=== PATIENT | male | born 1975 | race Caucasian/White ===

== ENCOUNTER 2024-06-09 18:41 | Emergency (ER) | payer MEDICAID, SELFPAY ==
[2024-06-09 18:47] VITALS: BP 167/100; PULSE 78; TEMP 36.7; O2SAT 98; BMI 31.6
--- NOTE | 2024-06-09 19:08 | XR_ITS ---
The [address] [address] Patient Name: STACIA KNIGHT MRN: [id number] date: 1975 Sex: M Assigned Patient Location: ED.MAIN Current Patient Location: Accession/Order Number: [id number] Exam Date: 06/09/2024 19:01 Report Date: 06/09/2024 20:24 At the request of: ISAAK WARD Procedure: XR foot LT min 3V EXAMINATION: XR foot LT min 3V, , 06/09/2024 7:01 PM EDT INDICATION: injury/pain HISTORY: Ordering Provider Reason for Exam: injury/pain Technologist Note: Additional: COMPARISON: None. TECHNIQUE: Left foot x-ray: 3 view(s). FINDINGS: Acute minimally displaced fracture is seen at the base of the fifth metatarsal. Joint alignment is anatomic. Joint spaces are preserved. Soft tissues are within normal limits. XR/XR foot LT min 3V IMPRESSION: Acute minimally displaced fracture is seen at the base of the fifth metatarsal. Electronically authenticated by: SCARLETT NOGUEIRA Date: 06/09/2024 20:24
--- NOTE | 2024-06-09 19:14 | ED.LOWEXI1 ---
HPI HPI - Extremity Injury (Lower) General Chief Complaint: Extremity Injury, Lower Stated Complaint: BWC - Lower Extremity Injury Time Seen by Provider: 06/09/24 19:12 Source: patient Mode of arrival: Wheelchair Limitations: no limitations History of Present Illness HPI Narrative: Patient is a 48-year-old male who presents to the emergency department for the evaluation of pain in the left foot after jumping out of his vehicle on a twisted left foot. He complains of pain over the left fifth metatarsal. No other associated injuries. No medications taken prior to arrival. He reports significant pain with walking. Related Data Home Medications ?Medication ?Instructions ?Recorded ?Confirmed Unobtainable 06/09/24 06/09/24 Previous Rx's ?Medication ?Instructions ?Recorded hydrocodone 5 mg-acetaminophen 325 1 tab PO Q6H PRN pain 3 days #12 06/09/24 mg tablet tabs Allergies Allergy/AdvReac Type Severity Reaction Status Date / Time Penicillins AdvReac Mild Rash Verified 06/09/24 18:47 Opioid HPI Opioid Management Most Recent Pain and Opioid Data: No Data to Display Review of Systems ROS Constitutional Denies: fever or chills Ears, nose, mouth, and throat Denies: throat pain Cardiovascular Denies: chest pain Respiratory Denies: shortness of breath Gastrointestinal Denies: nausea or vomiting Musculoskeletal Denies: back pain Integumentary/Breast Denies: rash Neurological Denies: numbness in extremities or weakness in extremities Hematologic/Lymphatic Denies: easy bruising or easy bleeding PFSH PFSH Social History Little interest or pleasure in doing things: not at all Feeling down, depressed, or hopeless: not at all Exam Narrative Exam Narrative: Gen.: Awake, alert, in no distress Head: Normocephalic, atraumatic ENT: Moist mucous membranes Respiratory: No respiratory distress Extremities: Moves extremities equally, tenderness and mild swelling over the left fifth metatarsal with 2+ left DP pulse. Normal flexion and extension of the toes of the left foot. No bony tenderness over the ankle or proximal tibia Psych: Normal mood and affect Neuro: No focal neuro deficit Skin: Warm, dry, intact Constitutional Vital Signs, click to edit/add: Last Vital Signs Temp 98.0 F 06/09/24 18:47 Pulse 78 06/09/24 18:47 Resp 18 06/09/24 18:47 BP 167/100 H 06/09/24 18:47 Pulse Ox 98 06/09/24 18:47 O2 Del Method Room Air 06/09/24 18:47 Course Vital Signs Vital signs: Vital Signs Temperature 98.0 F 06/09/24 18:47 Pulse Rate 78 06/09/24 18:47 Respiratory Rate 18 06/09/24 18:47 Blood Pressure 167/100 H 06/09/24 18:47 Pulse Oximetry 98 06/09/24 18:47 Oxygen Delivery Method Room Air 06/09/24 18:47 Temperature 98.0 F 06/09/24 18:47 Pulse Rate 78 06/09/24 18:47 Respiratory Rate 18 06/09/24 18:47 Blood Pressure 167/100 H 06/09/24 18:47 Pulse Oximetry 98 06/09/24 18:47 Oxygen Delivery Method Room Air 06/09/24 18:47 MDM - Extremity Injury (Lower) MDM Narrative Medical decision making narrative: X-rays show fracture of the fifth metatarsal. Patient placed in a [place]ado dressing and postop shoe and remains neurovascularly intact. He was given Kathleen for pain in the ER and given crutches for home. Rest, ice, elevate. Patient was asked directly if he would like to file Worker's Comp. claim as this happened at work, he states at this time he does not wish to file a Worker's Comp. claim. He was made aware that he can change his mind later and fill out this paperwork if he chooses to do so. Kathleen given for home and he is referred to podiatry for further evaluation and treatment. SUPERVISED APC VISIT, PHYSICIAN ATTESTATION: Based on the medical record the care appears appropriate. ? Medical Records Attestation: I reviewed the patient's medical records. Discharge Plan Discharge Chief Complaint: Extremity Injury, Lower Clinical Impression: Fracture of base of fifth metatarsal bone of left foot Patient Disposition: Home, Self-Care Time of Disposition Decision: 19:14 Condition: Good Prescriptions / Home Meds: New hydrocodone-acetaminophen 5-325 mg tablet 1 tab PO Q6H PRN (Reason: pain) 3 Days Qty: 12 0RF Rx Instructions: M79.672 No Action Unobtainable Print Language: Tamazight Instructions: Foot Fracture in Adults (ED) Referrals: Kiet Landa DPM [Physician] - 1 week
[2024-06-09] MEDS: HYDROCODONE/ACET 5-325 MG TABLET 1 TAB PO (19:54)
--- NOTE | 2024-06-09 19:58 | PC.NURSE ---
this patient did a return demonstration of his crutches, this patient gait was steady and this patient shows no signs of distress
== END 2024-06-09 20:01 | disposition home or self-care (01) ==
PROVIDERS: Emergency Provider Emergency Medicine
DX: S92.352A Displaced fracture of fifth metatarsal bone, left foot, initial encounter for closed fracture (principal); X50.9XXA Other and unspecified overexertion or strenuous movements or postures, initial encounter
CPT/HCPCS: 73630; 99284

== ENCOUNTER 2024-11-04 17:12 | Emergency (ER) | payer MEDICAID, SELFPAY ==
[2024-11-04 17:18] VITALS: BP 162/97; PULSE 85; TEMP 36.8; O2SAT 98; BMI 34.1
--- OUTSIDE RECORDS SUMMARY | 2024-11-04 17:33 | XMS_ITS | CCD ---
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 Name Role Phone Unavailable Primary Care Provider Unavailyann e Amanda Wan DO Primary Care Provider Grant CHIEF OPERATOR - SECURITY ASSURANCE ANALYSTJeanine Primary Care Provider Grant CHIEF OPERATOR - SECURITY ASSURANCE ANALYSTJeanine Primary Care Provider Grant DELGADO - SECURITY ASSURANCE ANALYSTJeanine Primary Care Provider VIVIENNE MUNSON Attending Unavailable VIVIENNE MUNSON Referring Unavailable JEANINE ROSA Primary Care Unavailable JEANINE ROSA Primary Care Unavailable VIVIENNE MUNSON Consulting Unavailable VIVIENNE MUNSON Admitting Unavailable VIVIENNE MUNSON Attending Unavailable DEBORA BERNAL Consulting Unavailable FABIO LAYNE Consulting Unavailable JEANINE ROSA Primary Care Unavailable STEPHENIE BOOKER Attending Unavailable VIVIENNE MUNSON Consulting Unavailable VIVIENNE MUNSON Attending Unavailable VIVIENNE MUNSON Referring Unavailable JEANINE ROSA Primary Care Unavailable JEANINE ROSA Referring Unavailable JEANINE ROSA Primary Care Unavailable JEANINE ROSA Referring Unavailable JEANINE ROSA Primary Care Unavailable JEANINE ROSA Referring Unavailable JEANINE ROSA Primary Care Unavailable PROVIDER, UNKNOWN Attending Unavailable PROVIDER, UNKNOWN Admitting Unavailable Allergies Allergy Classification Reported Allergen(s) Allergy Type Date of Onset Reaction(s) Facility Penicillins (antibiotic) (1 source) Penicillins Drug Allergy 01-23-2021 [facility] (6 sources) Penicillins Propensity to adverse reactions to drug 01-23-2021 [facility] Medications Current Medications Medication Drug Class(es) Dates Sig (Normalized) Sig (Original) Acetaminophen (2 sources) Start: 12-09-2021 acetaminophen (TYLENOL) tablet 650 mg Start: 01-23-2021 take 650 mg by mouth every four hours as needed for pain, then take 4000 mg by mouth every twenty-four hours as needed for pain 650 mg, Oral, EVERY 4 HOURS PRN, Pain Mild (1-3), Fever, Fever >100.5 F (38 C), Starting on 01/23/21 at 2327 Maximum dose of acetaminophen is 4000 mg from all sources in 24 hours. Recovery(Cath) acetaminophen 325 mg / oxyCODONE hydrochloride 5 mg oral tablet (1 source) Opioid Agonist Start: 02-01-2023 End: 02-01-2023 oxyCODONE-acetaminophen (PERCOCET) 5-325 MG per tablet Indications: Scrotal hematoma Take 1 tablet by mouth every 6 hours as needed for Pain for up to 3 days. Intended supply: 3 days. Take lowest dose possible to manage pain Max Daily Amount: 4 tablets 12 tablet 0 02/01/2023 02/01/2023 Discontinued [id number] 200 actuat albuterol 0.09 mg/actuat metered dose inhaler (4 sources) beta2-Adrenergic Agonist Start: 01-17-2022 take 2 puff(s) by inhalation every four hours as needed for wheezing VENTOLIN HFA 108 (90 Base) MCG/ACT inhaler Indications: Mild intermittent asthma, unspecified whether complicated , Chronic obstructive pulmonary disease, unspecified COPD type (HCC) Inhale 2 puffs into the lungs every 4 hours as needed for Wheezing or Shortness of Breath 18 g 3 01/17/2022 Active aspirin 81 mg delayed release oral tablet (10 sources) Platelet Aggregation Inhibitor, Nonsteroidal Anti-inflammator y Drug Start: 01-29-2023 take 1 tablet by mouth once daily ASPIRIN LOW DOSE 81 MG EC tablet take 1 tablet by mouth once daily 30 tablet 0 01/29/2023 Active Start: 03-07-2022 take 1 tablet by nancy th in the morning aspirin 81 MG chewable tablet Take 1 tablet by mouth in the morning. 30 tablet 3 03/07/2022 Active Start: 12-09-2021 aspirin chewab le tablet 243 mg Start: 01-24-2021 take 1 tablet by nancy th once daily aspirin 81 MG chewable tablet Take 1 tablet by mouth daily 30 tablet 3 01/26/2021 Active atorvastatin 80 mg oral tablet (9 sources) HMG-CoA Reductase Inhibitor Start: 01-16-2023 take 1 tablet by mouth once daily atorvastatin (LIPITOR) 80 MG tablet take 1 tablet by mouth nightly 30 tablet 3 01/16/2023 Active Start: 03-07-2022 take 1 tablet by nancy th once daily atorvastatin (LIPITOR) 80 MG tablet Take 1 tablet by mouth nightly 30 tablet 3 03/07/2022 Active Start: 01-23-2021 take 1 tablet by nancy th once daily atorvastatin (LIPITOR) 80 MG tablet Take 1 tablet by mouth nightly 30 tablet 3 01/25/2021 Active 60 actuat budesonide 0.16 mg/actuat / formoterol fumarate 0.0045 mg/actuat metered dose inhaler (4 sources) Corticosteroid, beta2-Adrenergic Agonist Start: 10-08-2022 take 2 puff(s) by inhalation twice daily budesonide-formoterol (SYMBICORT) 160-4.5 MCG/ACT AERO Indications: Chronic obstructive pulmonary disease, unspecified COPD type (HCC) Inhale 2 puffs into the lungs 2 times daily 10.2 g 3 10/08/2022 Active Start: 04-03-2022 take 2 puff(s) by in halation in the morning SYMBICORT 80-4.5 MCG/ACT AERO Indications: Mild intermittent asthma, unspecified whether complicated , Chronic obstructive pulmonary disease, unspecified COPD type (HCC) Inhale 2 puffs into the lungs in the morning and 2 puffs before bedtime. 10.2 g 3 04/03/2022 Active busPIRone hydrochloride 5 mg oral tablet (2 sources) Start: 01-17-2023 take 1 tablet by mouth three times daily busPIRone (BUSPAR) 5 MG tablet Indications: Anxiety , Medication management take 1 tablet by mouth three times a day 90 tablet 0 01/17/2023 Active Continuous Blood Gluc Assemblyman Or Woman (FREESTYLE ZULEMA 2 READER) POLO (5 sources) Start: 12-25-2021 Continuous Blood Gluc Assemblyman Or Woman (FREESTYLE ZULEMA 2 READER) POLO Indications: Type 2 diabetes mellitus with hyperglycemia, without long-term current use of insulin (HCC) 1 Device by Does not apply route daily 1 each 1 12/25/2021 Active Continuous Blood Gluc Sensor (FREESTYLE ZULEMA 2 SENSOR) MISC (5 sources) Start: 12-25-2021 Continuous Blood Gluc Sensor (FREESTYLE ZULEMA 2 SENSOR) [facility] [place]ications: Type 2 diabetes mellitus with hyperglycemia, without long-term current use of insulin (HCC) 1 Device by Does not apply route every 14 days 2 each 3 12/25/2021 Active dulaglutide (2 sources) GLP-1 Receptor Agonist DULAGLUTIDE SC Inject into the skin once a week 0 Active empagliflozin 10 mg oral tablet (5 sources) Sodium-Glucose Cotransporter 2 Inhibitor Start: 08-24-2022 take 1 tablet by mouth once daily in the morning empagliflozin (JARDIANCE) 10 MG tablet Indications: Type 2 diabetes mellitus with hyperglycemia, without long-term current use of insulin (HCC) TAKE 1 TABLET BY MOUTH EVERY DAY IN THE MORNING 30 tablet 3 08/24/2022 Active Start: 03-07-2022 take 1 tablet by nancy th in the morning empagliflozin (JARDIANCE) 10 MG tablet Indications: Type 2 diabetes mellitus with hyperglycemia, without long-term current use of insulin (HCC) Take 1 tablet by mouth in the morning. 30 tablet 3 03/07/2022 Active Start: 12-25-2021 take 1 tablet by nancy th once daily empagliflozin (JARDIANCE) 10 MG tablet Indications: Type 2 diabetes mellitus with hyperglycemia, without long-term current use of insulin (HCC) Take 1 tablet by mouth daily 30 tablet 3 12/25/2021 Active glucagon (rdna) 1 mg injection (2 sources) Antihypoglycemic Agent Start: 12-09-2021 glucago n (rDNA) injection 1 mg Start: 01-25-2021 glucagon (rDNA ) injection 1 mg 150 ml glucose 50 mg/ml injection (6 sources) Start: 12-09-2021 glucose (GLUTO SE) 40 % oral gel 15 g Start: 12-09-2021 dextrose 50 % IV solution Start: 12-09-2021 dextrose 5 % s olution Start: 01-25-2021 dextrose 50 % IV solution Start: 01-25-2021 dextrose 5 % s olution Start: 01-25-2021 glucose (GLUTO SE) 40 % oral gel 15 g icosapent ethyl 1000 mg oral capsule (1 source) Start: 01-26-2021 Icosapent Ethy l (VASCEPA) 1 g CAPS capsule Take 2 capsules by mouth 2 times daily 60 capsule 3 01/26/2021 Active 3 ml insulin glargine 100 unt/ml pen injector (3 sources) Insulin Analog Start: 12-27-2022 insulin glargi ne (LANTUS SOLOSTAR) 100 UNIT/ML injection pen Indications: Type 2 diabetes mellitus with hyperglycemia, without long-term current use of insulin (HCC) Inject 6 Units into the skin nightly 5 Adjustable Dose Pre-filled Pen Syringe 1 12/27/2022 Active Start: 01-25-2021 insulin glargi ne (LANTUS) injection vial 5 Units insulin lispro 100 unt/ml injectable solution (4 sources) Insulin Analog Start: 12-09-2021 insulin lispro (HUMALOG) injection vial 0-3 Units Start: 01-24-2021 0-18 Units, Subcutaneous, 3 TIMES DAILY WITH MEALS, First dose on Sat01/24/21 at 0800 High Dose Corrective Algorithm Glucose: Dose: 70-139 No Insulin 140-199 & nbsp; 3 Units 200-249 6 Units 250-299 9 Units 300-349 12 Units 350-400 15 Units Over 400 18 Units Start: 01-23-2021 0-9 Units, Subcutaneous, NIG HTLY, First dose on Sat01/23/21 at 2330 If continuous tube feedings/TPN/NPO, give correction dose based on result, no reduction in dose. If eating or bolus tube feeding: High Dose Corrective Algorithm Glucose: Dose: 70-139 No Insulin 140-199 &nb sp; 2 Units 200-249 3 Units 250-299 5 Units 300-349 6 Units 350-400 7 Units Over 400 9 Units lisinopril 5 mg oral tablet (9 sources) Angiotensin Converting Enzyme Inhibitor Start: 08-24-2022 take 1 tablet by mouth once daily in the morning lisinopril (PRINIVIL;ZESTRIL) 5 MG tablet TAKE 1 TABLET BY MOUTH EVERY DAY IN THE MORNING 30 tablet 3 08/24/2022 Active Start: 03-07-2022 take 1 tablet by nancy th in the morning lisinopril (PRINIVIL;ZESTRIL) 5 MG tablet Take 1 tablet by mouth in the morning. 30 tablet 3 03/07/2022 Active Start: 01-26-2021 take 1 tablet by nancy th once daily lisinopril (PRINIVIL;ZESTRIL) 5 MG tablet Take 1 tablet by mouth daily 30 tablet 3 01/26/2021 Active Start: 01-24-2021 lisinopril (IA INIVIL;ZESTRIL) tablet 5 mg metFORMIN hydrochloride 1000 mg oral tablet (8 sources) Biguanide Start: 01-31-2023 take 1 tablet by mouth once daily at mealtime metFORMIN (GLUCOPHAGE) 1000 MG tablet take 1 tablet by mouth every morning and every evening with food 120 tablet 0 01/31/2023 Active Start: 03-07-2022 take 1 tablet by nancy th in the morning metFORMIN (GLUCOPHAGE) 1000 MG tablet Take 1 tablet by mouth in the morning and 1 tablet in the evening. Take with meals. 60 tablet 5 03/07/2022 Active Start: 12-09-2021 take 1000 mg by mout h twice daily at mealtime 1,000 mg, Oral, 2 TIMES DAILY WITH MEALS, First dose on 12/09/21 at 1700, Until Discontinued take 1 tablet by nancy th twice daily at mealtime metFORMIN (GLUCOPHAGE) 1000 MG tablet Take 1,000 mg by mouth 2 times daily (with meals) 0 Active metoprolol tartrate 100 mg oral tablet (12 sources) beta-Adrenergic Laury Start: 01-27-2023 take 1 tablet by mouth at bedtime metoprolol (LOPRESSOR) 100 MG tablet Take 1 tablet by mouth in the morning and at bedtime 60 tablet 3 01/27/2023 Active Start: 03-07-2022 take 1 tablet by nancy th twice daily Metoprolol Tartrate 75 MG TABS Take 75 mg by mouth 2 times daily 60 tablet 3 03/07/2022 Active Start: 12-09-2021 take 75 mg by mouth twice leodan y 75 mg, Oral, 2 TIMES DAILY, First dose on 12/09/21 at 1315, Until Discontinued Start: 01-25-2021 metoprolol tar trate (LOPRESSOR) tablet 75 mg Start: 01-25-2021 take 1 tablet by nancy th twice daily metoprolol tartrate 75 MG TABS Take 75 mg by mouth 2 times daily 60 tablet 3 01/25/2021 Active Start: 01-25-2021 metoprolol tar trate (LOPRESSOR) tablet 25 mg Start: 01-24-2021 End: 01-25-2021 metoprolol tartrate (LOPRESS OR) tablet 50 mg Start: 01-23-2021 End: 01-24-2021 metoprolol tartrate (LOPRESS OR) tablet 25 mg 24 hr nicotine 0.875 mg/hr transdermal system (1 source) Cholinergic Nicotinic Agonist Start: 01-24-2021 nicotine (NICODERM C Q) 21 MG/24HR 1 patch nitroglycerin 0.4 mg sublingual tablet (5 sources) Nitrate Vasodilator Start: 03-07-2022 nitroGLYCE RIN (NITROSTAT) 0.[address] 1 tablet under the tongue as needed for Chest pain Place 0.4 mg under the tongue as needed 25 tablet 0 03/07/2022 Active Start: 12-20-2021 nitroGLYCERIN (NITROSTAT) 0.[address] 0.4 mg under the tongue as needed 0 12/20/2021 Active ondansetron (ZOFRAN-ODT) disintegrating tablet 4 mg (1 source) Start: 12-09-2021 ondansetron (ZOFRAN-ODT) disintegrating tablet 4 mg oxyCODONE hydrochloride 5 mg oral tablet (1 source) Opioid Agonist Start: 02-01-2023 End: 02-04-2023 take 1 tablet by mouth every six hours as needed for pain oxyCODONE (ROXICODONE) 5 MG immediate release tablet Indications: Scrotal hematoma Take 1 tablet by mouth every 6 hours as needed for Pain for up to 3 days. Intended supply: 3 days. Take lowest dose possible to manage pain Max Daily Amount: 20 mg 10 tablet 0 02/01/2023 02/04/2023 Active pantoprazole 40 mg delayed release oral tablet (1 source) Proton Pump Inhibitor Start: 01-25-2021 pantoprazole (PROTONIX) tablet 40 mg tamsulosin hydrochloride 0.4 mg oral capsule (2 sources) alpha-Adrenergi c Laury Start: 01-16-2023 take 1 capsule by mouth once daily tamsulosin (FLOMAX) 0.4 MG capsule Indications: Urine stream spraying take 1 capsule by mouth once daily 30 capsule 3 01/16/2023 Active ticagrelor 90 mg oral tablet (7 sources) Start: 03-07-2022 take 1 tablet by mouth in the morning ticagrelor (BRILINTA) 90 MG TABS tablet Take 1 tablet by mouth in the morning and 1 tablet before bedtime. 60 tablet 11 03/07/2022 Active Start: 01-24-2021 take 1 tablet by nancy th twice daily ticagrelor (BRILINTA) 90 MG TABS tablet Take 1 tablet by mouth 2 times daily 60 tablet 11 01/25/2021 Active triamcinolone acetonide 0.001 mg/mg topical ointment (2 sources) Corticosteroid Start: 12-29-2022 triamcinolone (KENALOG) 0.1 % ointment Indications: Dermatitis apply topically to affected area twice a day 454 g 3 12/29/2022 Active TRULICITY 3 MG/0.5ML SOPN (3 sources) Start: 03-07-2022 TRULICITY 3 MG /0.5ML SOPN Inject 3 mg into the skin every 7 days Inject 3 mg into the skin every 7 days 3 mL 1 03/07/2022 Active Start: 12-18-2021 TRULICITY 3 MG /0.5ML SOPN Inject 3 mg into the skin every 7 days 0 12/18/2021 Active Completed/Discontinued Medications Medication Drug Class(es) Dates Sig (Normalized) Sig (Original) dapagliflozin 10 mg oral tablet (3 sources) Sodium-Glucose Cotransporter 2 Inhibitor Start: 01-25-2021 End: 12-09-2021 take 1 tablet by mouth once daily in the morning dapagliflozin (FARXIGA) 10 MG tablet Take 1 tablet by mouth every morning 30 tablet 0 01/25/2021 12/09/2021 Discontinued (Therapy completed) 0.4 ml enoxaparin sodium 100 mg/ml prefilled syringe (2 sources) Low Molecular Weight Heparin Start: 12-09-2021 inject 40 mg by subcutaneous injection once daily 40 mg, SubCUTAneous, DAILY, First dose on 12/09/21 at 1315, Until Discontinued Indication of Use: Prophylaxis-DVT/PE Start: 01-24-2021 enoxaparin (LO VENOX) injection 40 mg 2 ml fentaNYL 0.05 mg/ml injection (1 source) Opioid Agonist Start: 01-23-2021 End: 01-23-2021 fentaNYL (SUBLIMAZE) injection 50 mcg Start: 01-23-2021 End: 01-23-2021 fentaNYL (SUBLIMAZE) injecti on 50 mcg glipiZIDE 5 mg oral tablet (1 source) Sulfonylurea Start: 01-25-2021 End: 01-25-2021 take 1 tablet by mouth twice daily before mealtime glipiZIDE (GLUCOTROL) 5 MG tablet Take 1 tablet by mouth 2 times daily (before meals) 60 tablet 1 01/25/2021 01/25/2021 Discontinued (Stop Taking at Discharge) 1 ml heparin sodium, porcine 1000 unt/ml injection (2 sources) Unfractionated Heparin, Anti-coagulant Start: 01-23-2021 End: 01-23-2021 heparin (porcine) 1000 UNIT/ML injection Start: 01-23-2021 End: 01-23-2021 heparin (porcine) injection 4,000 Units naproxen 500 mg oral tablet (1 source) Nonsteroidal Anti-inflammatory Drug End: 01-25-2021 take 1 tablet by mouth twice daily at mealtime naproxen (NAPROSYN) 500 MG tablet Take 500 mg by mouth 2 times daily (with meals) 0 01/25/2021 Discontinued (Stop Taking at Discharge) omega-3 acid ethyl esters (custodial) 1000 mg oral capsule (1 source) Start: 12-09-2021 2 g, Oral, 2 TIMES DAILY, First dose on 12/09/21 at 1315, Until Discontinued Substituted for icosapent ethyl (VASCEPA) polyethylene glycol 3350 [id number] mg powder for oral solution (1 source) Osmotic Laxative Start: 12-09-2021 17 g, Oral, DAILY PRN, Starting on 12/09/21 at 1248, Until Discontinued, Constipation First line therapy for constipation 5 ml sodium chloride 9 mg/ml injection (6 sources) Start: 12-09-2021 take 1 dose intravenously twice daily 5-40 mL, IntraVENous, EVERY 12 HOURS SCHEDULED (2 times per day), First dose on 12/09/21 at 2100, Until Discontinued For Line Patency: Peripheral IV = 5 mL; Midline or Central Line = 10 mL/lumen.&nb sp; If following IV push medication, administer flush at same rate as the IV push. Flush volume is determined by type of infusion therapy being given. &nbs p;For non-viscous solutions use: Periph eral IV = 5 mL Midline or Central Line = 10 mL/lumen &n bsp;For viscous solutions (i.e. blood components, parenteral nutrition, contrast media, or after obtaining blood sample) use: Periph eral IV = 10 mL Midline or Central Line = 20 mL/lumen Start: 12-09-2021 IntraVENous, a t 5-250 mL/hr, PRN, if patient receiving piggyback infusions and maintenance fluids are not ordered OR KVO fluids to protect IV site / prevent frequent line interruptions/ long duration, Starting on 12/09/21 at 1248 For piggyback infusion, administer at same rate as piggyback for a total of 25 mL. Enter 25 mL into dose field and piggyback rate into rate field of order. If piggyback is infusing at a rate less than 100 mL/hr, enter 25 mL into dose field and 100 mL/hr into rate field of order. For KVO fluids, enter rate of 20 mL/hr or less into rate field of order. Start: 12-09-2021 take 5-40 mL intrave nously once as needed 5-40 mL, IntraVENous, PRN, Starting on Sat12/09/21 at 1248, Until Discontinued, Line Care, After every IV line use For Line Patency: Peripheral IV = 5 mL; Midline or Central Line = 10 mL/lumen. If following IV push medication, administer flush at same rate as the IV push. Flush volume is determined by type of infusion therapy being given. For non-viscous solutions use: Peripheral IV = 5 mL Midline or Central Line = 10 mL/lumen For viscous solutions (i.e. blood components, parenteral nutrition, contrast media, or after obtaining blood sample) use: Peripheral IV = 10 mL Midline or Central Line = 20 mL/lumen Start: 01-23-2021 take 1 dose intraven ously twice daily 5-40 mL, Intravenous, EVERY 12 HOURS SCHEDULED (2 times per day), First dose on Sat01/23/21 at 2330 For Line Patency: Peripheral IV = 5 mL; Midline or Central Line = 10 mL/lumen. If following IV push medication, administer flush at same rate as the IV push. Flush volume is determined by type of infusion therapy being given. For non-viscous solutions use: Peripheral IV = 5 mL Midline or Central Line = 10 mL/lumen For viscous solutions (i.e. blood components, parenteral nutrition, contrast media, or after obtaining blood sample) use: Peripheral IV = 10 mL Midline or Central Line = 20 mL/lumen Recovery(Cath) Start: 01-23-2021 5-40 mL, Intra venous, PRN, Line Care, Starting on Sat01/23/21 at 2327 For Line Patency: Peripheral IV = 5 mL; Midline or Central Line = 10 mL/lumen. If following IV push medication, administer flush at same rate as the IV push. Flush volume is determined by type of infusion therapy being given. For non-viscous solutions use: Peripheral IV = 5 mL Midline or Central Line = 10 mL/lumen For viscous solutions (i.e. blood components, parenteral nutrition, contrast media, or after obtaining blood sample) use: Peripheral IV = 10 mL Midline or Central Line = 20 mL/lumen Recovery(Cath) Start: 01-23-2021 take 25 mL intraveno usly every hour as needed 25 mL, Intravenous, at 100 mL/hr, PRN, If patient receiving piggyback infusions without ordered maintenance IV fluids or with frequent/long duration piggyback infusions, Starting on Sat01/23/21 at 2327 Administer at the same rate as the piggyback being infused. Recovery(Cath) Problems Active Problems Problem Classification Problem Date Documented Date Episodic/Chronic Acute myocardial infarction (8 sources) Myocardial infarction; Translations: [ST elevation (STEMI) myocardial infarction of unspecified site] Onset: 01-23-2021 Chronic Acute posthemorrhagic anemia (2 sources) Acute posthemorrhagic anemia; Translations: [Acute posthemorrhagic anemia] Onset: 01-25-2023 01-25-2023 Episodic Coronary atherosclerosis and other heart disease (5 sources) Coronary atherosclerosis; Translations: [Atherosclerotic heart disease of [place] coronary artery without angina pectoris] Onset: 03-13-2021 12-25-2021 Chronic Crushing injury or internal injury (6 sources) Laceration of left kidney; Translations: [Laceration of left kidney, unspecified degree, initial encounter] Onset: 01-23-2023 Episodic Diabetes mellitus with complications (8 sources) Type 2 diabetes mellitus; Translations: [Type 2 diabetes mellitus with hyperglycemia] Onset: 01-24-2021 Chronic Disorders of lipid metabolism (5 sources) Pure hypercholesterolemia; Translations: [Pure hypercholesterolemia, unspecified] Onset: 04-04-2017 12-25-2021 Chronic Esophageal disorders (8 sources) Gastroesophageal reflux disease without esophagitis; Translations: [Gastro-esophageal reflux disease without esophagitis] Onset: 01-24-2021 Chronic Essential hypertension (5 sources) Essential hypertension; Translations: [Essential (primary) hypertension] Onset: 06-19-2020 12-25-2021 Chronic Other male genital disorders (1 source) Swelling of scrotum ; Translations: [Other specified disorders of the male genital organs] Episodic Other male genital disorders (1 source) Other specified disorders of the male genital organs; Translations: [Other specified disorders of the male genital organs] Onset: 02-01-2023 Episodic Other non-traumatic joint disorders (1 source) Pain of right wrist; Translations: [Pain in right wrist] Episodic Superficial injury; contusion (2 sources) Hematoma of scrotum; Translations: [Contusion of scrotum and testes, initial encounter] Onset: 02-01-2023 Episodic Past or Other Problems Problem Classification Problem Date Documented Da te Episodic/Chronic E Codes: Fall (4 sources) Fall; Translations: [Unspecified fall, subsequent encounter] Onset: 04-03-2022 Episodic Fluid and electrolyte disorders (8 sources) Hyponatremia; Translations: [Hypo-osmolality and hyponatremia] Onset: 01-24-2021 Resolved: 01-25-2023 Episodic Nonspecific chest pain (9 sources) Chest pain; Translations: [Other chest pain] Onset: 12-09-2021 Episodic Other non-traumatic joint disorders (3 sources) Pain in right wrist; Translations: [Pain in right wrist] Onset: 04-03-2022 Episodic Results Test Name Value Interpretation Reference Range Facility CBC with Auto Differentialon 02-01-2023 Absolute Bands # 0.20 [facility] Bands 2 % 0 - 10 % [facility] Basophils (Bld) [#/Vol] 0.29 10*3/uL High [facility] Basophils/100 WBC (Bld) 3 % High 0 - 2 % [facility] Eosinophils (Bld) [#/Vol] 0.49 10*3/uL High [facility] Eosinophils/100 WBC (Bld) 5 % High 0 - 4 % [facility] Erythrocyte distribution width (RBC) [Ratio] 13.8 % 11.5 - 14.9 % [facility] Hematocrit (Bld) [Volume fraction] 31.6 % Low 41 - 53 % [facility] Hemoglobin (Bld) [Mass/Vol] 10.9 g/dL Low 13.5 - 17.5 g/dL [facility] Interpretation and review of laboratory results Abnormal [facility] Lymphocytes/100 WBC (Bld) 9 % Low 24 - 44 % [facility] Lymphocytes/100 WBC (Bld) 0.88 % Low [facility] MCH (RBC) [Entitic mass] 32.1 pg 26 - 34 pg [facility] MCHC (RBC) [Mass/Vol] 34.6 g/dL 31 - 37 g/dL B ON [facility] MCV (RBC) [Entitic vol] 92.7 fL 80 - 100 fL [facility] Metamyelocytes 1 % High 0 [facility] Metamyelocytes Absolute 0.10 High 0 k/uL [facility] Monocytes/100 WBC (Bld) 12 % High 1 - 7 % [facility] Monocytes/100 WBC (Bld) 1.18 % [facility] Morphology Nathan (Bld) [Interp] 1+ POLYCHROMASIA [facility] Myelocytes 2 % High 0 [facility] Myelocytes Absolute 0.20 High 0 k/uL [facility] Neutrophils/100 WBC (Bld) 66 % 36 - 66 % [facility] Platelet mean volume (Bld) [Entitic vol] 6.8 fL 6.0 - 12.0 fL [facility] Platelets (Bld) [#/Vol] 419 10*3/uL [facility] RBC (Bld) [#/Vol] 3.40 10*6/uL Low 4.5 - 5.9 m/uL [facility] Segmented neutrophils/100 WBC (Bld) 6.46 % [facility] WBC other (Bld) [#/Vol] 9.8 [facility] CBC with Diffon 02-01-2023 Abs. Bands 0.20 k/uL Normal 0.0-1.0 [facility] Comment on above: Performed By: #### M G, LIP, CDP, PT, CP #### [facility] [address] [place] [address] [employer] Eng[employer]ver: Mick Carrera DO Abs. Basophil 0.29 k/uL High 0.0-0.2 [facility] Comment on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 [employer]: Mick Carrera DO MCHC (RBC) [Mass/Vol] 33.4 g/dL Normal 31-37 [facility] Comment on above: Performed By: #### Paddy YANEZ, HH #### [facility] [place] [address] [employer]ver: Mick Carrera DO MCV (RBC) [Entitic vol] 93.1 fL Normal 80-100 [facility] Comment on above: Performed By: #### Paddy YANEZ, TAYLOR #### [facility] [place] [address] [employer]ver: Mick Carrera DO Platelet mean volume (Bld) [Entitic vol] 7.4 fL Normal 6.0-12.0 [facility] Comment on above: Performed By: #### Paddy YANEZ, TAYLOR #### [facility] [place] [address] [employer]ver: Mick Carrera DO Platelets (Bld) [#/Vol] 226 10*3/uL Normal 150-450 [facility] Comment on above: Performed By: #### Paddy YANEZ, TAYLOR #### [facility] [place] [address] [employer]ver: Mick Carrera DO RBC (Bld) [#/Vol] 2.72 10*6/uL Low 4.5-5.9 [facility] Comment on above: Performed By: #### Paddy YANEZ, TAYLOR #### [facility] [place] [address] [employer]ver: Mick Carrera DO WBC (Bld) [#/Vol] 9.3 10*3/uL Normal 3.5-11.0 [facility] Comment on above: Performed By: #### Paddy YANEZ, HH #### [facility] [address] [place] [address] [employer]ver: Mick Carrera DO Basic Metab w/rfx MGon 01-26 Anion gap [Moles/Vol] 10 mmol/L Normal 9-17 [facility] Comment on above: Performed By: #### Paddy YANEZ, HH #### [facility] [place] [address] [employer]ver: Mick Carrera DO Calcium [Mass/Vol] 8.6 mg/dL Normal 8.6-10.4 [facility] Comment on above: Performed By: #### Paddy YANEZ, HH #### [facility] [place] [address] [employer]ver: Mick Carrera DO Chloride [Moles/Vol] 96 mmol/L Low 98-107 [facility] Comment on above: Performed By: #### Paddy YANEZ, HH #### [facility] [address] [facility] [place] [address] [employer]ver: Mick Carrera DO CO2 [Moles/Vol] 29 mmol/L Normal 20-31 [facility] Comment on above: Performed By: #### Paddy YANEZ, HH #### [facility] [place] [address] [employer]ver: Mick Carrera DO Creatinine [Mass/Vol] 0.93 mg/dL Normal 0.70-1.20 [facility] Comment on above: Performed By: #### Paddy YANEZ, HH #### [facility] [place] [address] [employer]ver: Mick Carrera DO GFR/1.73 sq M.predicted among non-blacks MDRD (S/P/Bld) [Vol rate/Area] mL/min/{1.73_m2} Normal >60 [facility] Comment on above: Result Comment: These results are not intended for use in patients <18 years of age. eGFR results are calculated without a race factor using the 2020 CKD-EPI equation. Careful clinical correlation is recommended, particularly when comparing to results calculated using previous equations. The CKD-EPI equation is less accurate in patients with extremes of muscle mass, extra-renal metabolism of creatine, excessive creatine ingestion, or following therapy that affects renal tubular secretion. Performed By: #### B RENATA, HH #### [facility] [address] [place] [address] [employer]ver: Mick Carrera DO Glucose [Mass/Vol] 188 mg/dL High 70-99 [facility] Comment on above: Performed By: #### Paddy YANEZ, HH #### [facility] [address] [facility] [place] [address] [employer]ver: Mick Carrera DO Potassium [Moles/Vol] 3.9 mmol/L Normal 3.7-5.3 [facility] Comment on above: Performed By: #### Paddy YANEZ, HH #### [facility] [address] [facility] [place] [address] [employer]ver: Mick Carrera DO Sodium [Moles/Vol] 135 mmol/L Normal 135-144 [facility] Comment on above: Performed By: #### Paddy YANEZ, HH #### [facility] [address] [facility] [place] [address] [employer]ver: Mick Carrera DO Urea nitrogen [Mass/Vol] 10 mg/dL Normal 6-20 [facility] Comment on above: Performed By: #### Paddy YANEZ, HH #### [facility] [address] [place] [address] [employer]ver: Mick Carrera DO CBC with Diffon 01-26-2023 Abs. Basophil 0.00 k/uL Normal 0.0-0.2 [facility] Comment on above: Performed By: #### TAYLOR Thomason MP #### [facility] [place] [address] [employer]ver: Mick Carrera DO Abs.Neutrophil (Seg) 5.70 k/uL Normal 1.3-9.1 [facility] Comment on above: Performed By: #### Paddy YANEZ, TAYLOR #### [facility] [place] [address] [employer]ver: Mick Carrera DO Basophils/100 WBC (Bld) 1 % Normal 0-2 [facility] Comment on above: Performed By: #### Paddy YANEZ, TAYLOR #### [facility] [place] [address] [employer]ver: Mick Carrera DO Eosinophils (Bld) [#/Vol] 0.10 10*3/uL Normal 0.0-0.4 [facility] Comment on above: Performed By: #### Paddy YANEZ, TAYLOR #### [facility] [address] [place] [address] [employer]ver: Mick Carrera DO Eosinophils/100 WBC (Bld) 1 % Normal 0-4 [facility] Comment on above: Performed By: #### Paddy YANEZ, TAYLOR #### [facility] [place] [address] [employer] Eng[employer]ver: Mick Carrera DO Erythrocyte distribution width (RBC) [Ratio] 14.1 % Normal 11.5-14.9 [facility] Comment on above: Performed By: #### Paddy YANEZ, TAYLOR #### [facility] [address] [place] [address] [employer]ver: Mick Carrera DO Hematocrit (Bld) [Volume fraction] 25.8 % Low 41-53 [facility] Comment on above: Performed By: #### Paddy YANEZ, HH #### [facility] [address] [facility] [place] [address] [employer]ver: Mick Carrera DO Hemoglobin (Bld) [Mass/Vol] 9.0 g/dL Low 13.5-17.5 [facility] Comment on above: Performed By: #### Paddy YANEZ, HH #### [facility] [place] [address] [employer] Eng[employer]ver: Mick Carrera DO Lymphocytes (Bld) [#/Vol] 1.70 10*3/uL Normal 1.0-4.8 [facility] Comment on above: Performed By: #### Paddy YANEZ, TAYLOR #### [facility] [place] [address] [employer] Eng[employer]ver: Mick Carrera DO Lymphocytes/100 WBC (Bld) 20 % Low 24-44 [facility] Comment on above: Performed By: #### Paddy YANEZ, TAYLOR #### [facility] [address] [place] [address] [employer]ver: Mick Carrera DO MCH (RBC) [Entitic mass] 32.2 pg Normal 26-34 [facility] Comment on above: Performed By: #### Paddy YANEZ, HH #### [facility] [place] [address] [employer] Eng[employer]ver: Mick Carrera DO MCHC (RBC) [Mass/Vol] 34.9 g/dL Normal 31-37 [facility] Comment on above: Performed By: #### Paddy YANEZ, TAYLOR #### [facility] [address] [place], [place] [address]. [place] [address] [employer]ver: Mick Carrera DO MCV (RBC) [Entitic vol] 92.3 fL Normal 80-100 [facility] Comment on above: Performed By: #### Paddy YANEZ, HH #### [facility] [place] [address] [employer] Eng[employer]ver: Mick Carrera DO Monocytes (Bld) [#/Vol] 0.80 10*3/uL Normal 0.1-1.3 [facility] Comment on above: Performed By: #### B RENATA, HH #### [facility] [address] [place] [address] [employer]ver: Mick Carrera DO Monocytes/100 WBC (Bld) 10 % High 1-7 [facility] Comment on above: Performed By: #### B RENATA, HH #### [facility] [address] [place] [address] [employer]ver: Mick Carrera DO Neutrophil (Seg) 68 % High 36-66 [facility] Comment on above: Performed By: #### Paddy YANEZ, HH #### [facility] [address] [place] [address]. [place] [address] [employer]ver: Mick Carrera DO Platelet mean volume (Bld) [Entitic vol] 7.3 fL Normal 6.0-12.0 [facility] Comment on above: Performed By: #### B RENATA, HH #### [facility] [address] [place] [address] [employer]ver: Mick Carrera DO Platelets (Bld) [#/Vol] 189 10*3/uL Normal 150-450 [facility] Comment on above: Performed By: #### B RENATA, HH #### [facility] [address] [place] [address] [employer]: Mick Carrera DO RBC (Bld) [#/Vol] 2.79 10*6/uL Low 4.5-5.9 [facility] Comment on above: Performed By: #### B RENATA, HH #### [facility] [address] [place] [address] [employer]ver: Mick Carrera DO WBC (Bld) [#/Vol] 8.4 10*3/uL Normal 3.5-11.0 [facility] Comment on above: Performed By: #### Paddy YANEZ, HH #### [facility] [address] [place] [address] [employer]ver: Mick Carrera DO Hgb/Hcton 01-26-2023 Hematocrit (Bld) [Volume fraction] 26.3 % Low 41-53 [facility] Comment on above: Performed By: #### Paddy YANEZ, HH #### [facility] [address] [facility] [place] [address] [employer] Eng[employer]ver: Mick Carrera DO Hemoglobin (Bld) [Mass/Vol] 9.4 g/dL Low 13.5-17.5 [facility] Comment on above: Performed By: #### B RENATA, HH #### [facility] [address] [facility] [place] [address] [employer] Eng[employer]ver: Mick Carrera DO Hematocrit (Bld) [Volume fraction] 21.7 % Low 41-53 [facility] Comment on above: Performed By: #### T PLT #### [facility] [address] [place] [address] [employer]ver: Mick Carrera DO Hemoglobin (Bld) [Mass/Vol] 7.2 g/dL Low 13.5-17.5 [facility] Comment on above: Performed By: #### T PLT #### [facility] [address] [place] [address] [employer]ver: Mick Carrera DO Type + Screenon 01-26-2023 Type + Screen Sample Expiration 01/26/2023,2359 Arm Band Number [id number] ABO/Rh(D) A POSITIVE Antibody Screen NEGATIVE Blood Bank Comment PT'S ABORH CONFIRMED A POS:404 Unit Number [id number] Blood Component Type Leukocyte Reduced Red Cell Unit Division 00 Status of Unit TRANSFUSED Transfusion Status OK TO TRANSFUSE Crossmatch Result COMPATIBLE Unit Number [id number] Blood Component Type Leukocyte Reduced Red Cell Unit Division 00 Status of Unit TRANSFUSED Transfusion Status OK TO TRANSFUSE Crossmatch Result COMPATIBLE Normal [facility] Comment on above: Performed By: #### A LCB #### [facility] [address] [place] [address] [employer]ver: Mick Carrera DO Basic Metab w/rfx MGon 01-25 Potassium [Moles/Vol] 4.2 mmol/L Normal 3.7-5.3 [facility] Comment on above: Performed By: #### A LCB #### [facility] [place] [address] [employer]ver: Mick Carrera DO Anion gap [Moles/Vol] 10 mmol/L Normal 9-17 [facility] Comment on above: Performed By: #### A LCB #### [facility] [place] [address] [employer]ver: Mick Carrera DO Calcium [Mass/Vol] 8.6 mg/dL Normal 8.6-10.4 [facility] Comment on above: Performed By: #### A LCB #### [facility] [place] [address] [employer] Eng[employer]ver: Mick Carrera DO Chloride [Moles/Vol] 100 mmol/L Normal 98-107 [facility] Comment on above: Performed By: #### A LCB #### [facility] [address] [facility] [place] [place] [address] [employer] Eng[employer]ver: Mick Carrera DO CO2 [Moles/Vol] 27 mmol/L Normal 20-31 [facility] Comment on above: Performed By: #### A LCB #### [facility] [address] [facility] [place] [address] [employer]ver: Mick Carrera DO Creatinine [Mass/Vol] 1.36 mg/dL High 0.70-1.20 [facility] Comment on above: Performed By: #### A LCB #### [facility] [address] [facility] [place] [address] [employer]ver: Mick Carrera DO GFR/1.73 sq M.predicted among non-blacks MDRD (S/P/Bld) [Vol rate/Area] mL/min/{1.73_m2} Normal >60 [facility] Comment on above: Result Comment: These results are not intended for use in patients <18 years of age. eGFR results are calculated without a race factor using the 2020 CKD-EPI equation. Careful clinical correlation is recommended, particularly when comparing to results calculated using previous equations. The CKD-EPI equation is less accurate in patients with extremes of muscle mass, extra-renal metabolism of creatine, excessive creatine ingestion, or following therapy that affects renal tubular secretion. Performed By: #### A LCB #### [facility] [address] [facility] [place] [address] [employer]ver: Mick Carrera DO Glucose [Mass/Vol] 197 mg/dL High 70-99 [facility] Comment on above: Performed By: #### A LCB #### [facility] [address] [facility] [place] [address] [employer]ver: Mick Carrera DO Sodium [Moles/Vol] 137 mmol/L Normal 135-144 [facility] Comment on above: Performed By: #### A LCB #### [facility] [place] [address] [employer]ver: Mick Carrera DO Urea nitrogen [Mass/Vol] 16 mg/dL Normal 6-20 [facility] Comment on above: Performed By: #### A LCB #### [facility] [address] [place] [address] [employer]ver: Mick Carrera DO CBC with Diffon 01-25-2023 Abs. Basophil 0.10 k/uL Normal 0.0-0.2 [facility] Comment on above: Performed By: #### A LCB #### [facility] [address] [place] [address] [employer]: Mick Carrera DO Abs.Neutrophil (Seg) 8.50 k/uL Normal 1.3-9.1 [facility] Comment on above: Performed By: #### A LCB #### [facility] [address] [place] [address] [employer]: Mick Carrera DO Basophils/100 WBC (Bld) 0 % Normal 0-2 [facility] Comment on above: Performed By: #### A LCB #### [facility] [address] [place] [address] [employer]: Mick Carrera DO Eosinophils (Bld) [#/Vol] 0.00 10*3/uL Normal 0.0-0.4 [facility] Comment on above: Performed By: #### A LCB #### [facility] [address] [place] [address] [employer]ver: Mick Carrera DO Eosinophils/100 WBC (Bld) 0 % Normal 0-4 [facility] Comment on above: Performed By: #### A LCB #### [facility] [address] [place] [address] [employer]ver: Mick Carrera DO Erythrocyte distribution width (RBC) [Ratio] 13.0 % Normal 11.5-14.9 [facility] Comment on above: Performed By: #### A LCB #### [facility] [address] [place] [address] [employer]ver: Mick Carrera DO Hematocrit (Bld) [Volume fraction] 23.1 % Low 41-53 [facility] Comment on above: Performed By: #### A LCB #### [facility] [address] [place] [address] [employer]: Mick Carrera DO Hemoglobin (Bld) [Mass/Vol] 7.8 g/dL Low 13.5-17.5 [facility] Comment on above: Performed By: #### A LCB #### [facility] [address] [place] [address] [employer]: Mick Carrera DO Lymphocytes (Bld) [#/Vol] 1.90 10*3/uL Normal 1.0-4.8 [facility] Comment on above: Performed By: #### A LCB #### [facility] [address] [place] [address] [employer]: Mick Carrera DO Lymphocytes/100 WBC (Bld) 17 % Low 24-44 [facility] Comment on above: Performed By: #### A LCB #### [facility] [address] [place] [address] [employer] Eng[employer]ver: Mick Carrera DO MCH (RBC) [Entitic mass] 32.0 pg Normal 26-34 [facility] Comment on above: Performed By: #### A LCB #### [facility] [address] [place] [address] [employer] Eng[employer]ver: Mick Carrera DO MCHC (RBC) [Mass/Vol] 33.9 g/dL Normal 31-37 [facility] Comment on above: Performed By: #### A LCB #### [facility] [address] [place] [address] [employer] Eng[employer]ver: Mick Carrera DO MCV (RBC) [Entitic vol] 94.3 fL Normal 80-100 [facility] Comment on above: Performed By: #### A LCB #### [facility] [place] [address] [employer] Eng[employer]ver: Mick Carrera DO Monocytes (Bld) [#/Vol] 1.00 10*3/uL Normal 0.1-1.3 [facility] Comment on above: Performed By: #### A LCB #### [facility] [facility] [place] [address] [employer] Engraver: Mick Carrera DO Monocytes/100 WBC (Bld) 9 % High 1-7 [facility] Comment on above: Performed By: #### A LCB #### [facility] [place] [address] [employer] Eng[employer]ver: Mick Carrera DO Neutrophil (Seg) 74 % High 36-66 [facility] Comment on above: Performed By: #### A LCB #### [facility] [place] [address] [employer] Eng[employer]ver: Mick Carrera DO Platelet mean volume (Bld) [Entitic vol] 7.6 fL Normal 6.0-12.0 [facility] Comment on above: Performed By: #### A LCB #### [facility] [place] [address] [employer] Eng[employer]ver: Mick Carrera DO Platelets (Bld) [#/Vol] 227 10*3/uL Normal 150-450 [facility] Comment on above: Performed By: #### A LCB #### [facility] [address] [place] [address] [employer] Eng[employer]ver: Mick Carrera DO RBC (Bld) [#/Vol] 2.46 10*6/uL Low 4.5-5.9 [facility] Comment on above: Performed By: #### A LCB #### [facility] [address] [place] [address]. [place] [address] [employer]ver: Mick Carrera DO WBC (Bld) [#/Vol] 11.5 10*3/uL High 3.5-11.0 [facility] Comment on above: Performed By: #### A LCB #### [facility] [facility] [place] [place] [address] [employer] Eng[employer]ver: Mick Carrera DO Hgb/Hcton 01-25-2023 Hematocrit (Bld) [Volume fraction] 23.1 % Low 41-53 [facility] Comment on above: Performed By: #### H H #### [facility] [address] [place] [address]. [place] [address] [employer] Eng[employer]ver: Mick Carrera DO Hemoglobin (Bld) [Mass/Vol] 7.9 g/dL Low 13.5-17.5 [facility] Comment on above: Performed By: #### H H #### [facility] [place] [address] [employer] Eng[employer]ver: Mick Carrera DO Hematocrit (Bld) [Volume fraction] 24.7 % Low 41-53 [facility] Comment on above: Performed By: #### T PLT #### [facility] [address] [place] [address] [employer] Eng[employer]ver: Mick Carrera DO Hemoglobin (Bld) [Mass/Vol] 8.3 g/dL Low 13.5-17.5 [facility] Comment on above: Performed By: #### T PLT #### [facility] [address] [place] [address] [employer]ver: Mick Carrera DO Hematocrit (Bld) [Volume fraction] 25.7 % Low 41-53 [facility] Comment on above: Performed By: #### H H #### [facility] [address] [place] [address] [employer]ver: Mick Carrera DO Hemoglobin (Bld) [Mass/Vol] 8.7 g/dL Low 13.5-17.5 [facility] Comment on above: Performed By: #### H H #### [facility] [address] [place] [address] [employer] Eng[employer]ver: Mick Carrera DO Platelets,Transfuseon 2022 Platelets,Transfuse Unit Number [id number] Blood Component Type PthRePlt PAS Unit Division 00 Status of Unit TRANSFUSED Transfusion Status OK TO TRANSFUSE Normal [facility] Comment on above: Performed By: #### T PLT #### [facility] [address] [place] [address] [employer] Eng[employer]ver: Mick Carrera DO Basic Metab w/rfx MGon 01-24 Anion gap [Moles/Vol] 13 mmol/L Normal 9-17 [facility] Comment on above: Performed By: #### H H #### [facility] [address] [place] [address] [employer] Eng[employer]ver: Mick Carrera DO Sodium [Moles/Vol] 137 mmol/L Normal 135-144 [facility] Comment on above: Performed By: #### H H #### [facility] [address] [place] [address] [employer] Eng[employer]ver: Mick Carrera DO Calcium [Mass/Vol] 9.0 mg/dL Normal 8.6-10.4 [facility] Comment on above: Performed By: #### H H #### [facility] [place] [address] [employer] Eng[employer]ver: Mick Carrera DO Chloride [Moles/Vol] 102 mmol/L Normal 98-107 [facility] Comment on above: Performed By: #### H H #### [facility] [place] [address] [employer] Eng[employer]ver: Mick Carrera DO CO2 [Moles/Vol] 22 mmol/L Normal 20-31 [facility] Comment on above: Performed By: #### H H #### [facility] [address] [facility] [place] [address] [employer] Eng[employer]ver: Mick Carrera DO Creatinine [Mass/Vol] 1.24 mg/dL High 0.70-1.20 [facility] Comment on above: Performed By: #### H H #### [facility] [place] [address] [employer] Eng[employer]ver: Mick Carrera DO GFR/1.73 sq M.predicted among non-blacks MDRD (S/P/Bld) [Vol rate/Area] mL/min/{1.73_m2} Normal >60 [facility] Comment on above: Result Comment: These results are not intended for use in patients <18 years of age. eGFR results are calculated without a race factor using the 2020 CKD-EPI equation. Careful clinical correlation is recommended, particularly when comparing to results calculated using previous equations. The CKD-EPI equation is less accurate in patients with extremes of muscle mass, extra-renal metabolism of creatine, excessive creatine ingestion, or following therapy that affects renal tubular secretion. Performed By: #### H H #### [facility] [address] [place] [address] [employer] Engraver: Mick Carrera DO Glucose [Mass/Vol] 242 mg/dL High 70-99 [facility] Comment on above: Performed By: #### H H #### [facility] [place] [address] [employer] Eng[employer]ver: Mick Carrera DO Potassium [Moles/Vol] 4.6 mmol/L Normal 3.7-5.3 [facility] Comment on above: Performed By: #### H H #### [facility] [address] [place] [address] [employer] Eng[employer]ver: Mick Carrera DO Urea nitrogen [Mass/Vol] 14 mg/dL Normal 6-20 [facility] Comment on above: Performed By: #### H H #### [facility] [facility] [place] [place] [address] [employer] Engraver: Mick Carrera DO Basic Metabolic Profon 01-24 Anion gap [Moles/Vol] 16 mmol/L Normal 9-17 [facility] Comment on above: Performed By: #### B TAYLOR YANEZ #### [facility] [facility] [place] [place] [address] [employer] Eng[employer]ver: Mick Carrera DO Calcium [Mass/Vol] 8.8 mg/dL Normal 8.6-10.4 [facility] Comment on above: Performed By: #### B TAYLOR YANEZ #### [facility] [place] [address] [employer] Engraver: Mick Carrera DO Chloride [Moles/Vol] 102 mmol/L Normal 98-107 [facility] Comment on above: Performed By: #### B RENATA, TAYLOR #### [facility] [address] [facility] [place] [address] [employer] Eng[employer]ver: Mick Carrera DO CO2 [Moles/Vol] 21 mmol/L Normal 20-31 [facility] Comment on above: Performed By: #### B RENATA, HH #### [facility] [address] [facility] [place] [address] [employer] Eng[employer]ver: Mick Carrera DO Creatinine [Mass/Vol] 1.66 mg/dL High 0.70-1.20 [facility] Comment on above: Performed By: #### B RENATA, HH #### [facility] [place] [address] [employer] Eng[employer]ver: Mick Carrera DO GFR/1.73 sq M.predicted among non-blacks MDRD (S/P/Bld) [Vol rate/Area] 50 mL/min/{1.73_m2} Low >60 [facility] Comment on above: Result Comment: These results are not intended for use in patients <18 years of age. eGFR results are calculated without a race factor using the 2020 CKD-EPI equation. Careful clinical correlation is recommended, particularly when comparing to results calculated using previous equations. The CKD-EPI equation is less accurate in patients with extremes of muscle mass, extra-renal metabolism of creatine, excessive creatine ingestion, or following therapy that affects renal tubular secretion. Performed By: #### B RENATA, HH #### [facility] [address] [facility] [place] [address] [employer] Eng[employer]ver: Mick Carrera DO Glucose [Mass/Vol] 282 mg/dL High 70-99 [facility] Comment on above: Performed By: #### B RENATA, TAYLOR #### [facility] [address] [facility] [place] [address] [employer] Eng[employer]ver: Mikc Carrera DO Potassium [Moles/Vol] 4.5 mmol/L Normal 3.7-5.3 [facility] Comment on above: Performed By: #### B TAYLOR YANEZ #### [facility] [address] [place] [address]. [place] [address] [employer] Eng[employer]ver: Mick Carrera DO Sodium [Moles/Vol] 139 mmol/L Normal 135-144 [facility] Comment on above: Performed By: #### B RENATA, TAYLOR #### [facility] [address] [place] [address]. [place] [address] [employer] Eng[employer]ver: Mick Carrera DO Urea nitrogen [Mass/Vol] 19 mg/dL Normal 6-20 [facility] Comment on above: Performed By: #### B TAYLOR YANEZ #### [facility] [address] [place] [address]. [place] [address] [employer] Eng[employer]ver: Mick Carrera DO CBC with Diffon 01-24-2023 Abs. Basophil 0.00 k/uL Normal 0.0-0.2 [facility] Comment on above: Performed By: #### H H #### [facility] [address] [place] [address] [employer] Eng[employer]ver: Mick Carrera DO Abs.Neutrophil (Seg) 12.00 k/uL High 1.3-9.1 [facility] Comment on above: Performed By: #### H H #### [facility] [address] [place] [address]. [place] [address] [employer] Eng[employer]ver: Mick Carrera DO Basophils/100 WBC (Bld) 0 % Normal 0-2 [facility] Comment on above: Performed By: #### H H #### [facility] [address] [place] [address] [employer] Eng[employer]ver: Mick Carrera DO Eosinophils (Bld) [#/Vol] 0.00 10*3/uL Normal 0.0-0.4 [facility] Comment on above: Performed By: #### H H #### [facility] [address] [place] [address] [employer] Eng[employer]ver: Mick Carrera DO Eosinophils/100 WBC (Bld) 0 % Normal 0-4 [facility] Comment on above: Performed By: #### H H #### [facility] [address] [place] [address] [employer] Eng[employer]ver: Mick Carrera DO Erythrocyte distribution width (RBC) [Ratio] 13.0 % Normal 11.5-14.9 [facility] Comment on above: Performed By: #### H H #### [facility] [address] [place] [address] [employer] Eng[employer]ver: Mick Carrera DO Hematocrit (Bld) [Volume fraction] 37.9 % Low 41-53 [facility] Comment on above: Performed By: #### H H #### [facility] [address] [place] [address] [employer] Eng[employer]ver: Mick Carrera DO Hemoglobin (Bld) [Mass/Vol] 13.2 g/dL Low 13.5-17.5 [facility] Comment on above: Performed By: #### H H #### [facility] [facility] [place] [address] [employer] Engraver: Mick Carrera DO Lymphocytes (Bld) [#/Vol] 0.80 10*3/uL Low 1.0-4.8 [facility] Comment on above: Performed By: #### H H #### [facility] [address] [place] [address] [employer] Eng[employer]ver: Mick Carrera DO Lymphocytes/100 WBC (Bld) 6 % Low 24-44 [facility] Comment on above: Performed By: #### H H #### [facility] [place] [address] [employer] Eng[employer]ver: Mick Carrera DO MCH (RBC) [Entitic mass] 32.2 pg Normal 26-34 [facility] Comment on above: Performed By: #### H H #### [facility] [place] [address] [employer] Engraver: Mick Carrera DO MCHC (RBC) [Mass/Vol] 34.7 g/dL Normal 31-37 [facility] Comment on above: Performed By: #### H H #### [facility] [address] [place] [address] [employer] Eng[employer]ver: Mick Carrera DO MCV (RBC) [Entitic vol] 92.6 fL Normal 80-100 [facility] Comment on above: Performed By: #### H H #### [facility] [address] [place] [address] [employer] Eng[employer]ver: Mick Carrera DO Monocytes (Bld) [#/Vol] 1.20 10*3/uL Normal 0.1-1.3 [facility] Comment on above: Performed By: #### H H #### [facility] [address]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 EKG 12 LeadOrdered By: Daniel Kennedy on 01-25-2021 Atrial Rate 93 BPM [employer] Phone: P [place] 32 degrees [employer] Phone: P-R Interval 144 ms [employer] Phone: Q-T Interval 334 ms [employer] Phone: QRS Duration 92 ms [employer] Phone: QTc Calculation (Bazett) 415 ms [employer] Phone: R [place] 19 degrees [employer] Phone: T [place] 60 degrees [employer] Phone: Ventricular Rate 93 BPM [employer] Work Phone: Normal sinus rhythm ST elevation consider inferior injury or acute infarct ACUTE [place] / STEMI Consider right ventricular involvement in acute inferior infarct Abnormal ECG When compared with ECG of 05-MAR-2002 16:12, ST elevation now present in Inferior leads [employer] Phone: Dao, pn Incoming Ekg Results From [employer] - 01/25/2021 8:55 AM EDT Normal sinus rhythm ST elevation consider inferior injury or acute infarct ACUTE [place] / STEMI Consider right ventricular involvement in acute inferior infarct Abnormal ECG When compared with ECG of 05-MAR-2002 16:12, ST elevation now present in Inferior leads [employer] Work Phone: [employer] Phone: EKG 12 LeadOrdered By: Aria Cooley on 01-25-2021 Atrial Rate 86 BPM [employer] Work Phone: P [place] 39 degrees [employer] Phone: P-R Interval 146 ms [employer] Phone: Q-T Interval 352 ms [employer] Phone: QRS Duration 92 ms [employer] Phone: QTc Calculation (Bazett) 421 ms [employer] Phone: R [place] -35 degrees [employer] Work Phone: T [place] 8 degrees [employer] Phone: Ventricular Rate 86 BPM [employer] Work Phone: Normal sinus rhythm Left axis deviation Inferior infarct , age undetermined Abnormal ECG When compared with ECG of 23-JAN-2021 21:59, QRS axis Shifted left Inferior infarct is now Present ST no longer elevated in Inferior leads Nonspecific T wave abnormality, worse in Lateral leads [employer] Phone: Dao, pn Incoming Ekg Results From [employer] - 01/25/2021 8:51 AM EDT Normal sinus rhythm Left axis deviation Inferior infarct , age undetermined Abnormal ECG When compared with ECG of 23-JAN-2021 21:59, QRS axis Shifted left Inferior infarct is now Present ST no longer elevated in Inferior leads Nonspecific T wave abnormality, worse in Lateral leads [employer] Phone: [employer] Phone: LDL Cholesterol, DirectOrder ed By: Franci Ruvalcaba on 01-25-2021 Cholesterol in LDL [Mass/Vol] 123 mg/dL High <100 [employer] Phone: Interpretation and review of laboratory results Abnormal [employer] Phone: [facility] Phone: Lipid, FastingOrdered By: Kojo Ruvalcaba on 01-25-2021 Cholesterol [Mass/Vol] 221 mg/dL High <200 [employer] Phone: Comment on above: Cholesterol Guidelines: <200 Desirable 200-240 Borderline >240 Undesirable Cholesterol in HDL [Mass/Vol] 26 mg/dL Low >40 [employer] Phone: Comment on above: HDL Guidelines: <40 Undesirable 40-59 Borderline >59 Desirable Cholesterol in VLDL [Mass/Vol] NOT REPORTED 1 - 30 mg/dL [employer] Phone: Cholesterol.total/Chol esterol in HDL [Mass ratio] 8.5 {ratio} High <5 [employer] Phone: LDL Cholesterol 0 - 130 mg/dL [employer] Phone: Comment on above: Calculation not chase d for Triglyceride value greater than 400 mg/dL. Direct LDL reflexed LDL Guidelines: <100 Desirable 100-129 Near to/above Desirable 130-159 Borderline >159 Undesirable Direct (measured) LDL and calculated LDL are not interchangeable tests. Triglyceride, Fasting 638 mg/dL High <150 [facility] [employer] Phone: Comment on above: Triglyceride Guidelines: <150 Desirable 150-199 Borderline 200-499 High >499 Very high Based on AHA Guidelines for fasting triglyceride, May 2012. No Panel InformationOrdered By: Natalie Cooley on 01-25-2021 Interpretation and review of laboratory results Abnormal [facility] Phone: [facility] Phone: POC Glucose FingerstickOrder ed By: Franci Ruvalcaba on 01-25-2021 Glucose [Mass/Vol] 281 mg/dL High 75 - 110 mg/dL [employer] Phone: Interpretation and review of laboratory results Abnormal [employer] Phone: [employer] Phone: Glucose [Mass/Vol] 286 mg/dL High 75 - 110 mg/dL [employer] Phone: Interpretation and review of laboratory results Abnormal Invisible Phone: Invisible Phone: TroponinOrdered By: Natalie Cooley on 01-25-2021 Interpretation and review of laboratory results Abnormal Invisible Phone: Troponin Interp NOT REPORTED [facility] Work Phone: Troponin T NOT REPORTED <0.03 ng/mL [facility] [employer] Work Phone: Troponin, High Sensitivity 274 ng/L Critically high 0 - 22 ng/L Invisible Phone: Comment on above: High Sensitivity Troponin values cannot be compared with other Troponin methodologies. Patients with high levels of Biotin oral intake (i.e >5mg/day) may have falsely decreased Troponin levels. Samples collected within 8 hours of biotin intake may require additional information for diagnosis. Previous Alert Value Reported Invisible Phone: ECHO Complete 2D W Doppler W ColorOrdered By: Stefan Hidalgo on 01-24-2021 Transthoracic Echocardiography Report (TTE) Patient Name ANTONIA Date of Study 01/24/2021 JOHN Carpio Date of 1975 Gender Male Age 45 year(s) Race Unknown Room Number 1011 Height: 65 inch, 165.1 cm Corporate ID [id number] Weight: 250 pounds, 113.4 kg # Patient Acct [id number] BSA: 2.17 m^2 BMI: 41.6 kg/m^2 # MR # [id number] [employer] Chele Alex Interpreting Physician Steven Burr Fellow Referring Nurse Practitioner Interpreting Referring Physician ELLE AYALA Fellow Type of Study TTE procedure:2D Echocardiogram, M-Mode, Doppler, Color Doppler. Procedure Date Date: 01/24/2021 Start: 08:07 AM Study Location: [facility] Technical Quality: Adequate visualization Comments:STEMI. History / Tech. Comments: Procedure explained to patient. Echo done at patient bedside. DM type 2. Patient Status: Inpatient Height: 65 inches Weight: 250 pounds BSA: 2.17 m^2 BMI: 41.6 kg/m^2 HR: 88 bpm Allergies - Penicillin. CONCLUSIONS Summary Left ventricle is normal in size Global left ventricular systolic function is low normal . Estimated ejection fraction is 50 % . Mild left ventricular hypertrophy. The basal and mid segment of the inferoseptal wall is hypokinetic. The inferior wall is hypokinetic. Left atrium is normal in size. Right atrium is normal in size. Normal right ventricular size and function. No significant valvular abnormalities. Signature Electronically signed by Farida [facility]) on 01/24/2021 03:14 PM FINDINGS Left Atrium Left atrium is normal in size. Left Ventricle Left ventricle is normal in size Global left ventricular systolic function is low normal Estimated ejection fraction is 50 % . Mild left ventricular hypertrophy. The basal and mid segment of the inferoseptal wall is hypokinetic. The inferior wall is hypokinetic. Right Atrium Right atrium is normal in size. Right Ventricle Normal right ventricular size and function. Mitral Valve Normal mitral valve structure and function. No mitral regurgitation. Aortic Valve Aortic valve is sclerotic but opens well. Aortic valve is trileaflet. No aortic insufficiency. Tricuspid Valve Normal tricuspid valve structure and function. No tricuspid regurgitation was seen. Pulmonic Valve The pulmonic valve is normal in structure. No pulmonic insufficiency. Pericardial Effusion No significant pericardial effusion is seen. Miscellaneous Normal aortic root dimension. E/E' average = 8.4. IVC normal diameter & inspiratory collapse indicating normal RA filling pressure . M-mode / 2D Measurements & Calculations: LVIDd:3.5 cm(3.7 - 5.6 cm) Diastolic Volume:84.1 ml LVIDs:2.7 cm(2.2 - 4.0 cm) Systolic Volume:37.7 ml IVSd:1.3 cm(0.6 - 1.1 cm) Aortic Root:3.5 cm(2.0 - 3.7 cm) LVPWd:1.3 cm(0.6 - 1.1 cm) LA Dimension: 3 cm(1.9 - 4.0 cm) Fractional Shortenin.86 % LA volume/Index: 26.6 ml /12m^2 Calculated LVEF (%): 55.17 % LVOT:2.1 cm RVDd:3.5 cm Mitral: Aortic Valve Area (P1/2-Time): 3.28 cm^2 Peak Velocity: 1.25 m/s Peak E-Wave: 0.48 m/s Mean Velocity: 0.96 m/s Peak A-Wave: 0.79 m/s Peak Gradient: 6.25 mmHg E/A Ratio: 0.6 Mean Gradient: 4 mmHg Peak Gradient: 0.91 mmHg Mean Gradient: 1 mmHg Deceleration Time: 229 msec Area (continuity): 2.99 cm^2 P1/2t: 67 msec AV VTI: 20.5 cm Area (continuity): 3.35 cm^2 Mean Velocity: 0.51 m/s Pulmonic: Peak Velocity: 0.89 m/s Peak Gradient: 3.17 mmHg Diastology / Tissue Doppler Septal Wall E' velocity:0.05 m/s Septal Wall E/E':10.2 Lateral Wall E' velocity:0.07 m/s Lateral Wall E/E':6.6 [facility] Work Phone: Dao, pn Incoming Cardio Results From [facility] - 01/24/2021 3:15 PM EDT Transthoracic Echocardiography Report (TTE) Patient Name ANTONIA Date of Study 01/24/2021 JOHN Carpio Date of 1975 Gender Male Age 45 year(s) Race Unknown Room Number 1011 Height: 65 inch, 165.1 cm Corporate ID [id number] Weight: 250 pounds, 113.4 kg # Patient Acct [id number] BSA: 2.17 m^2 BMI: 41.6 kg/m^2 # MR # [id number] [employer] Chele Alex Interpreting Physician Steven Burr Fellow Referring Nurse Practitioner Interpreting Referring Physician ELLE Lau Type of Study TTE procedure:2D Echocardiogram, M-Mode, Doppler, Color Doppler. Procedure Date Date: 01/24/2021 Start: 08:07 AM Study Location: [facility] Technical Quality: Adequate visualization Comments:STEMI. History / Tech. Comments: Procedure explained to patient. Echo done at patient bedside. DM type 2. Patient Status: Inpatient Height: 65 inches Weight: 250 pounds BSA: 2.17 m^2 BMI: 41.6 kg/m^2 HR: 88 bpm Allergies - Penicillin. CONCLUSIONS Summary Left ventricle is normal in size Global left ventricular systolic function is low normal . Estimated ejection fraction is 50 % . Mild left ventricular hypertrophy. The basal and mid segment of the inferoseptal wall is hypokinetic. The inferior wall is hypokinetic. Left atrium is normal in size. Right atrium is normal in size. Normal right ventricular size and function. No significant valvular abnormalities. Signature - - - Electronically signed by Steven Burr([facility] physician) on 01/24/2021 03:14 PM - FINDINGS Left Atrium Left atrium is normal in size. Left Ventricle Left ventricle is normal in size Global left ventricular systolic function is low normal Estimated ejection fraction is 50 % . Mild left ventricular hypertrophy. The basal and mid segment of the inferoseptal wall is hypokinetic. The inferior wall is hypokinetic. Right Atrium Right atrium is normal in size. Right Ventricle Normal right ventricular size and function. Mitral Valve Normal mitral valve structure and function. No mitral regurgitation. Aortic Valve Aortic valve is sclerotic but opens well. Aortic valve is trileaflet. No aortic insufficiency. Tricuspid Valve Normal tricuspid valve structure and function. No tricuspid regurgitation was seen. Pulmonic Valve The pulmonic valve is normal in structure. No pulmonic insufficiency. Pericardial Effusion No significant pericardial effusion is seen. Miscellaneous Normal aortic root dimension. E/E' average = 8.4. IVC normal diameter & inspiratory collapse indicating normal RA filling pressure . M-mode / 2D Measurements & Calculations: LVIDd:3.5 cm(3.7 - 5.6 cm) Diastolic Volume:84.1 ml LVIDs:2.7 cm(2.2 - 4.0 cm) Systolic Volume:37.7 ml IVSd:1.3 cm(0.6 - 1.1 cm) Aortic Root:3.5 cm(2.0 - 3.7 cm) LVPWd:1.3 cm(0.6 - 1.1 cm) LA Dimension: 3 cm(1.9 - 4.0 cm) Fractional Shortenin.86 % LA volume/Index: 26.6 ml /12m^2 Calculated LVEF (%): 55.17 % LVOT:2.1 cm RVDd:3.5 cm Mitral: Aortic Valve Area (P1/2-Time): 3.28 cm^2 Peak Velocity: 1.25 m/s Peak E-Wave: 0.48 m/s Mean Velocity: 0.96 m/s Peak A-Wave: 0.79 m/s Peak Gradient: 6.25 mmHg E/A Ratio: 0.6 Mean Gradient: 4 mmHg Peak Gradient: 0.91 mmHg Mean Gradient: 1 mmHg Deceleration Time: 229 msec Area (continuity): 2.99 cm^2 P1/2t: 67 msec AV VTI: 20.5 cm Area (continuity): 3.35 cm^2 Mean Velocity: 0.51 m/s Pulmonic: Peak Velocity: 0.89 m/s Peak Gradient: 3.17 mmHg Diastology / Tissue Doppler Septal Wall E' velocity:0.05 m/s Septal Wall E/E':10.2 Lateral Wall E' velocity:0.07 m/s Lateral Wall E/E':6.6 Invisible Phone: Invisible Phone: HEMOGLOBIN [id number] By: Monik Gill on 01-24-2021 Glucose [Mass/Vol] 229 mg/dL Invisible Phone: Comment on above: The ADA and AACC rec ommend providing the estimated average glucose result to permit better patient understanding of their HBA1c result. HbA1c (Bld) [Mass fraction] 9.6 % High 4.0 - 6.0 % Invisible Phone: Interpretation and review of laboratory results Abnormal Invisible Phone: Invisible Phone: POC Glucose FingerstickOrder ed By: Franci Ruvalcaba on 01-24-2021 Glucose [Mass/Vol] 263 mg/dL High 75 - 110 mg/dL Invisible Phone: Interpretation and review of laboratory results Abnormal Invisible Phone: Invisible Phone: Glucose [Mass/Vol] 304 mg/dL High 75 - 110 mg/dL Invisible Phone: Interpretation and review of laboratory results Abnormal Invisible Phone: Invisible Phone: Glucose [Mass/Vol] 302 mg/dL High 75 - 110 mg/dL Invisible Phone: Interpretation and review of laboratory results Abnormal Invisible Phone: Invisible Phone: Glucose [Mass/Vol] 274 mg/dL High 75 - 110 mg/dL Invisible Phone: Interpretation and review of laboratory results Abnormal Invisible Phone: [employer] Work Phone: Glucose [Mass/Vol] 413 mg/dL Critically high 75 - 1 10 mg/dL [facility] Phone: Interpretation and review of laboratory results Abnormal [facility] Work Phone: [employer] Work Phone: TSH with ReflexOrdered By: Jorge Cooley on 01-24-2021 TSH Qn 1.51 m[IU]/L [employer] Work Phone: Invisible Phone: TroponinOrdered By: Natalie Cooley on 01-24-2021 Interpretation and review of laboratory results Abnormal Invisible Phone: Troponin Interp NOT REPORTED [facility] Work Phone: Troponin T NOT REPORTED <0.03 ng/mL [facility] Work Phone: Troponin, High Sensitivity 339 ng/L Critically high 0 - 22 ng/L [facility] Phone: Comment on above: High Sensitivity Troponin values cannot be compared with other Troponin methodologies. Patients with high levels of Biotin oral intake (i.e >5mg/day) may have falsely decreased Troponin levels. Samples collected within 8 hours of biotin intake may require additional information for diagnosis. Invisible Phone: APTTOrdered By: Darryl shearer on 01-23-2021 aPTT Coag (Bld) [Time] 22.7 s [facility] [employer] Work Phone: Comment on above: IV Heparin Therapy Range: 48.6-77.8 Activated clotting timeOrder ed By: Nicolette Mendoza on 01-23-2021 Activated Clotting Time 249 High [facility] Work Phone: Interpretation and review of laboratory results Abnormal Invisible Phone: Invisible Phone: Basic Metabolic Panel w/ Ref isaiah to MGOrdered By: Darryl Kennedy on 01-23-2021 Anion gap [Moles/Vol] 15 mmol/L 9 - 17 mmol/L Invisible Phone: Calcium [Mass/Vol] 9.5 mg/dL 8.6 - 10. 4 mg/dL Invisible Phone: Chloride [Moles/Vol] 97 mmol/L Low 98 - 10 7 mmol/L Invisible Phone: CO2 [Moles/Vol] 22 mmol/L 20 - 31 mmol/L Invisible Phone: Creatinine [Mass/Vol] 0.85 mg/dL 0.70 - 1.20 mg/dL Invisible Phone: GFR >60 >60 mL/min [employer] Phone: GFR Non- >60 >60 mL/min Invisible Phone: GFR/1.73 sq M.predicted MDRD (S/P/Bld) [Vol rate/Area] Invisible Phone: Comment on above: Average GFR for 40-4 9 years old: 99 mL/min/1.73sq m Chronic Kidney Disease: <60 mL/min/1.73sq m Kidney failure: <15 mL/min/1.73sq m eGFR calculated using average adult body mass. Additional eGFR calculator available at: http://www.[employer]/multiple_crcl_2012.htm GFR/1.73 sq M.predicted MDRD (S/P/Bld) [Vol rate/Area] NOT REPORTED Invisible Phone: Glucose [Mass/Vol] 433 mg/dL Critically high 70 - 9 9 mg/dL Invisible Phone: Interpretation and review of laboratory results Abnormal Invisible Phone: Potassium [Moles/Vol] 4.2 mmol/L 3.7 - 5.3 mmol/L Invisible Phone: Sodium [Moles/Vol] 134 mmol/L Low 135 - 144 mmol/L Invisible Phone: Urea nitrogen (BldV) [Mass/Vol] 10 mg/dL 6 - 20 mg/dL Invisible Phone: Urea nitrogen/Creatinine (Bld) [Mass ratio] NOT REPORTED Invisible Phone: Invisible Phone: Brain Natriuretic PeptideOrd ered By: Darryl Kennedy on 01-23-2021 BNP Interpretation Pro-BNP Reference Range: Invisible Phone: Comment on above: Rule Out: <300 [place] Zone: Age <50 300-450 Age 50-75 300-900 Age >75 300-1800 Usually represents mild to moderate HF but other cardiopulmonary causes cannot be ruled out. Rule In: Age <50 >450 Age 50-75 >900 Age >75 >1800 Pro-BNP <20 <300 pg/mL Invisible Phone: Comment on above: Pro-BNP results suzy ot be compared to BNP results. CALCIUM, IONIC (POC)Ordered By: Nicolette Mendoza on 01-23-2021 POC Ionized Calcium 1.20 mmol/L 1.15 - 1 .33 mmol/L [employer] Work Phone: CBC Auto DifferentialOrdered By: Darryl Kennedy on 01-23-2021 Absolute Eos # 0.26 [facility] Work Phone: Absolute Immature Granulocyte 0.07 [employer] Work Phone: Absolute Lymph # 3.02 [facility] Work Phone: Absolute Pleasants # 0.82 [facility] Work Phone: Basophils (Bld) [#/Vol] 0.09 10*3/uL Invisible Phone: Basophils/100 WBC (Bld) 1 % 0 - 2 % Invisible Phone: Differential Type NOT REPORTED Invisible Phone: Eosinophils/100 WBC (Bld) 3 % 1 - 4 % Invisible Phone: Hematocrit (Bld) [Volume fraction] 49.4 % 40.7 - 50.3 % Invisible Phone: Hemoglobin.gastrointes tinal spec 1 Ql (Stl) 17.3 g/dL High 13.0 - 17.0 g/dL Invisible Phone: Immature granulocytes/100 WBC (Bld) 1 % High 0 Invisible Phone: Interpretation and review of laboratory results Abnormal Invisible Phone: Lymphocytes/100 WBC (Bld) 33 % 24 - 43 % Invisible Phone: MCH (RBC) [Entitic mass] 31.2 pg 25.2 - 33.5 pg Invisible Phone: MCHC (RBC) [Mass/Vol] 35.0 g/dL High 28.4 - 34.8 g/dL Invisible Phone: MCV (RBC) [Entitic vol] 89.2 fL 82.6 - 102.9 fL Invisible Phone: Monocytes/100 WBC (Bld) 9 % 3 - 12 % Invisible Phone: NRBC Automated 0.0 0.0 per 100 WBC Invisible Phone: Platelet distribution width (Bld) [Ratio] 11.8 % 11.8 - 14.4 % Invisible Phone: Platelet Estimate NOT REPORTED Invisible Phone: Platelet mean volume (Bld) [Entitic vol] 10.5 fL 8.1 - 13.5 fL Invisible Phone: Platelets (Bld) [#/Vol] 224 10*3/uL Invisible Phone: RBC (Bld) [#/Vol] 5.54 10*6/uL 4.21 - 5.7 7 m/uL Invisible Phone: RBC (Bld) [#/Vol] NOT REPORTED Invisible Phone: Segmented neutrophils/100 WBC (Bld) 53 % 36 - 65 % Invisible Phone: Segs Absolute 4.99 [employer] Work Phone: WBC (Bld) [#/Vol] 9.3 10*3/uL Invisible Phone: WBC (Bld) [#/Vol] NOT REPORTED Invisible Phone: Invisible Phone: COVID-19, RapidOrdered By: Aly Kennedy on 01-23-2021 SARS-CoV-2 (COVID-19) RNA LORY+probe Ql (Unsp spec) Not detected Not Detected Invisible Phone: Comment on above: Rapid NAAT: The specimen is NEGATIVE for SARS-CoV-2, the novel coronavirus associated with COVID-19. The ID NOW COVID-19 assay is designed to detect the virus that causes COVID-19 in patients with signs and symptoms of infection who are suspected of COVID-19. An individual without symptoms of COVID-19 and who is not shedding SARS-CoV-2 virus would expect to have a negative (not detected) result in this assay. Negative results should be treated as presumptive and, if inconsistent with clinical signs and symptoms or necessary for patient management, should be tested with an alternative molecular assay. Negative results do not preclude SARS-CoV-2 infection and should not be used as the sole basis for patient management decisions. Fact sheet for Healthcare Providers: https://www.[employer]cept[employer].gov/media/064392/download Fact sheet for Patients: https://www.fda.gov/media/208964/download Methodology: Isothermal Nucleic Acid Amplification Specimen Description .NASOPHARYNGEAL SWAB [employer] Work Phone: Invisible Phone: Catheterization and angiogra phy procedure details panelOrdered By: Stefan Hidalgo on 01-23-2021 Cardiac Diagnostic + PCI Report Demographics Patient ANTONIA Carpio Date of Study 01/23/2021 Name Date of 1975 Gender Male Age 45 year(s) Race Unknown Room [id number]^VALENTÍN^FRANCI Height: 65 inch, 165.1 cm Number Corporate [id number] Weight: 250 pounds, 113.4 kg ID # Patient [id number] BSA: 2.17 m^2 BMI: 41.6 kg/m^2 Acct # MR # [id number] Performing Franci Ruvalcaba Physician Referring # Physician Assisting Physician Procedure Procedure Type: Diagnostic procedure: Lt Heart, Coronary Angio, LVgram PCI procedure: PTCA / Drug Eluting Stent:, CX and / or branches Complications: - No complication Indications: - STEMI patient Conclusions Procedure Summary Successful PCI / Drug Eluting Stent of the proximal and mid LCX. Non-obstructive LAD and RCA disease. Small diffusely diseased diabetic vessels. Borderline LV systolic function Recommendations Routine Post NJ/Stent Orders. Medical therapy as needed. Risk factor modification. Signature ---- Electronically signed by Franci Ruvalcaba(Perform [facility] Physician) on 01/23/2021 23:37 ---- Angiographic Findings Cardiac Arteries and Lesion Findings LMCA: Normal 0% stenosis. LAD: Diffuse irregularities 30-40%. LCx: Multiple stenosis. Lesion on Mid CX: 99% stenosis 34 mm length reduced to 0%. Pre procedure WANDA III flow was noted. Post Procedure WANDA III flow was present. Good runoff was present. The lesion was diagnosed as High Risk (C). Devices used - Luge Wire 182 cm. Number of passes: 1. - Trek Balloon 2.5mm x 20mm. 1 inflation(s) to a max pressure of: 10 jazzy. - Xience Jossy 3.0 x 28 JATINDER. 1 inflation(s) to a max pressure of: 12 jazzy. - Xience Jossy 2.75 x 18 JATINDER. 2 inflation(s) to a max pressure of: 16 jazzy. - NC Trek 3.0x20mm Balloon. 2 inflation(s) to a max pressure of: 16 jazzy. Lesion on Prox CX: 80% stenosis 18 mm length reduced to 0%. Pre procedure WANDA III flow was noted. Post Procedure WANDA III flow was present. Good runoff was present. The lesion was diagnosed as Moderate Risk (B). Devices used - Luge Wire 182 cm. Number of passes: 1. - Xience Jossy 3.0 x 23 JATINDER. 1 inflation(s) to a max pressure of: 14 jazzy. RCA: Diffuse irregularities 30-40%. Coronary Tree Dominance: Right LV Analysis LV function assessed as:Normal. Ejection Fraction + +---+ !Method !EF%! + +---+ !LV gram !50 ! + +---+ LV Segment Contractility 1 - Normal 3 - Mild 5 - Severe 7 - Dyskinesis hypokinesis hypokinesis 2 - 4 - Moderate 6 - Akinesis 8 - Aneurysm Hypokinesis hypokinesis Procedure Data Procedure Start Time: 01/23/2021 22:50. Procedure End Time: 01/23/2021 23:25. Diagnostic Cath Status: Emergency Entry Locations - Retrograde Percutaneous access was performed through the Right Femoral artery. A 6 Fr sheath was inserted. Hemostasis was successfully obtained using 6 Fr. Angioseal. Procedure Medications: - Lidocaine HCl 1% 10mg/ml S.Q. 15 ml. - Versed I.V. 2 mg. - Fentanyl I.V. 50 mcg. - Heparin I.V. bolus 8000 units. - Nitroglycerin I.C. 200 mcg. - Nitroglycerin I.C. 200 mcg. - Lopressor I.V. 5 mg. - Brilinta P.O. 180 mg. Catheters and Wires: - 6F Catheter JR 4 was used for Right coronary angiography. - 6F Catheter JL 4 was used for Left coronary angiography. - 6F Guide Catheter XB 3.5 SH was used for Left coronary angiography. - 6F Catheter Angled Pigtail was used for Left ventriculography. Contrast Material: - Isovue [id number] ml Fluoroscopy Time: Diagnostic: 6:54 minutes. Total: 6:54 minutes. Estimated Blood Loss: 10 ml. Medical History Allergies - Penicillin. Risk Factors The patient risk factors include:hypercholest erolemia, hypertension, diabetes mellitus, last creatinine: 1 mg/dl, creatinine clearance: 146.47 ml/min and Current - Every day tobacco use. 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 Hemodynamics Condition: Baseline Room Air Estimated: 287.58Heart Rate: 102 bpm Pressure +-----+ + !Site !Pressure ! +-----+ + !AO (more content not included)... Invisible Phone: Dao, [employer] Incoming Cardio Results From [facility] - 01/23/2021 11:37 PM EDT Cardiac Diagnostic + PCI Report Demographics Patient ANTONIA Carpio Date of Study 01/23/2021 Name Date of 1975 Gender Male Age 45 year(s) Race Unknown Room [id number]^OSCAR Height: 65 inch, 165.1 cm Number Corporate [id number] Weight: 250 pounds, 113.4 kg ID # Patient [id number] BSA: 2.17 m^2 BMI: 41.6 kg/m^2 Acct # MR # [id number] Performing Franci Ruvalcaba Physician Referring # Physician Assisting Physician Procedure Procedure Type: Diagnostic procedure: Lt Heart, Coronary Angio, LVgram PCI procedure: PTCA / Drug Eluting Stent:, CX and / or branches Complications: - No complication Indications: - STEMI patient Conclusions Procedure Summary Successful PCI / Drug Eluting Stent of the proximal and mid LCX. Non-obstructive LAD and RCA disease. Small diffusely diseased diabetic vessels. Borderline LV systolic function Recommendations Routine Post NJ/Stent Orders. Medical therapy as needed. Risk factor modification. Signature ---- Electronically signed by Franci Ruvalcaba(Perform [facility] Physician) on 01/23/2021 23:37 ---- Angiographic Findings Cardiac Arteries and Lesion Findings LMCA: Normal 0% stenosis. LAD: Diffuse irregularities 30-40%. LCx: Multiple stenosis. Lesion on Mid CX: 99% stenosis 34 mm length reduced to 0%. Pre procedure WANDA III flow was noted. Post Procedure WANDA III flow was present. Good runoff was present. The lesion was diagnosed as High Risk (C). Devices used - Luge Wire 182 cm. Number of passes: 1. - Trek Balloon 2.5mm x 20mm. 1 inflation(s) to a max pressure of: 10 jazzy. - Xience Jossy 3.0 x 28 JATINDER. 1 inflation(s) to a max pressure of: 12 jazzy. - Xience Jossy 2.75 x 18 JATINDER. 2 inflation(s) to a max pressure of: 16 jazzy. - NC Trek 3.0x20mm Balloon. 2 inflation(s) to a max pressure of: 16 jazzy. Lesion on Prox CX: 80% stenosis 18 mm length reduced to 0%. Pre procedure WANDA III flow was noted. Post Procedure WANDA III flow was present. Good runoff was present. The lesion was diagnosed as Moderate Risk (B). Devices used - Luge Wire 182 cm. Number of passes: 1. - Xience Jossy 3.0 x 23 JATINDER. 1 inflation(s) to a max pressure of: 14 jazzy. RCA: Diffuse irregularities 30-40%. Coronary Tree Dominance: Right LV Analysis LV function assessed as:Normal. Ejection Fraction + +--- + !Method !EF%! + +--- + !LV gram !50 ! + +--- + LV Segment Contractility 1 - Normal 3 - Mild 5 - Severe 7 - Dyskinesis hypokinesis hypokinesis 2 - 4 - Moderate 6 - Akinesis 8 - Aneurysm Hypokinesis hypokinesis Procedure Data Procedure Start Time: 01/23/2021 22:50. Procedure End Time: 01/23/2021 23:25. Diagnostic Cath Status: Emergency Entry Locations - Retrograde Percutaneous access was performed through the Right Femoral artery. A 6 Fr sheath was inserted. Hemostasis was successfully obtained using 6 Fr. Angioseal. Procedure Medications: - Lidocaine HCl 1% 10mg/ml S.Q. 15 ml. - Versed I.V. 2 mg. - Fentanyl I.V. 50 mcg. - Heparin I.V. bolus 8000 units. - Nitroglycerin I.C. 200 mcg. - Nitroglycerin I.C. 200 mcg. - Lopressor I.V. 5 mg. - Brilinta P.O. 180 mg. Catheters and Wires: - 6F Catheter JR 4 was used for Right coronary angiography. - 6F Catheter JL 4 was used for Left coronary angiography. - 6F Guide Catheter XB 3.5 SH was used for Left coronary angiography. - 6F Catheter Angled Pigtail was used for Left ventriculography. Contrast Material: - Isovue [id number] ml Fluoroscopy Time: Diagnostic: 6:54 minutes. Total: 6:54 minutes. Estimated Blood Loss: 10 ml. Medical History Allergies - Penicillin. Risk Factors The patient risk factors include:hypercholest erolemia, hypertension, diabetes mellitus, last creatinine: 1 mg/dl, creatinine clearance: 146.47 ml/min and Current - Every day tobacco use. 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 Hemodynamics Condition: Baseline Room Air Estimated: 287.58Heart Rate: 102 bpm Pressure +-----+ + !Site !Pressure ! +-----+ + !AO !165/99 (130) ! +-----+ (more content not included)... Invisible Phone: Invisible Phone: Catheterization and angiogra phy procedure details panelOrdered By: Franci Ruvalcaba on 01-23-2021 [employer] Phone: Creatinine W/GFR Point of Ca reOrdered By: Nicolette Mendoza on 01-23-2021 Creatinine [Mass/Vol] 0.95 mg/dL 0.51 - 1.19 mg/dL [employer] Phone: GFR Non- >60 >60 mL/min [employer] Phone: GFR/1.73 sq M.predicted MDRD (S/P/Bld) [Vol rate/Area] mL/min/{1.73_m2} >60 mL/min [employer] Phone: GFR/1.73 sq M.predicted MDRD (S/P/Bld) [Vol rate/Area] Invisible Phone: Comment on above: Average GFR for 40-4 9 years old: 99 mL/min/1.73sq m Chronic Kidney Disease: <60 mL/min/1.73sq m Kidney failure: <15 mL/min/1.73sq m eGFR calculated using average adult body mass. Additional eGFR calculator available at: http://www.[employer]/multiple_crcl_2012.htm ELECTROLYTES PLUSOrdered By: Nicolette Mendoza on 01-23-2021 Anion gap [Moles/Vol] 13 mmol/L 7 - 16 mmol/L [employer] Phone: Chloride [Moles/Vol] 100 mmol/L 98 - 10 7 mmol/L Invisible Phone: CO2 [Moles/Vol] 28 mmol/L 22 - 30 mmol/L Invisible Phone: Potassium [Moles/Vol] 4.2 mmol/L 3.5 - 4.5 mmol/L In[employer] Phone: Sodium [Moles/Vol] 140 mmol/L 138 - 146 mmol/L Invisible Phone: Hemoglobin and hematocrit, b loodOrdered By: Nicolette Mendoza on 01-23-2021 Hematocrit (Bld) [Volume fraction] 54 % High 41 - 53 % Invisible Phone: Hemoglobin (Bld) [Mass/Vol] 18.5 g/dL High 13.5 - 17.5 g/dL Invisible Phone: Lactic Acid, POCOrdered By: Nioclette Mendoza on 01-23-2021 POC Lactic Acid 2.80 mmol/L High 0.56 - 1.39 mmol/L Invisible Phone: No Panel InformationOrdered By: Darryl Kennedy on 01-23-2021 Invisible Phone: Invisible Phone: No Panel InformationOrdered By: Nicolette Mendoza on 01-23-2021 Interpretation and review of laboratory results Abnormal Invisible Phone: Invisible Phone: POCT GlucoseOrdered By: Ellie Mendoza on 01-23-2021 Glucose [Mass/Vol] 464 mg/dL Critically high 74 - 1 00 mg/dL Invisible Phone: POCT urea (BUN)Ordered By: Aly Mendoza on 01-23-2021 Urea nitrogen [Mass/Vol] 10 mg/dL 8 - 26 mg/dL Invisible Phone: PROTIME-INROrdered By: Daniel Kennedy on 01-23-2021 INR Coag (Bld) [Relative time] 1.1 {INR} Invisible Phone: Comment on above: Therapeutic Range: Moderate Anticoagulant Intensity: INR = 2.0-3.0 High Anticoagulant Intensity: INR = 2.5-3.5 PT Coag (PPP) [Time] 11.3 s [employer] Phone: TroponinOrdered By: Darryl roland on 01-23-2021 Troponin Interp NOT REPORTED [employer] [facility] Work Phone: Troponin T NOT REPORTED <0.03 ng/mL [employer] Work Phone: Troponin, High Sensitivity 20 ng/L 0 - 22 ng/L Invisible Phone: Comment on above: High Sensitivity Troponin values cannot be compared with other Troponin methodologies. Patients with high levels of Biotin oral intake (i.e >5mg/day) may have falsely decreased Troponin levels. Samples collected within 8 hours of biotin intake may require additional information for diagnosis. Venous Blood Gas, POCOrdered By: Nicolette Mendoza on 01-23-2021 Isaias Test NOT REPORTED Invisible Phone: FIO2 NOT REPORTED Invisible Phone: HCO3 (Bld) [Moles/Vol] 28 mmol/L 22.0 - 29.0 mmol/L Invisible Phone: Mode NOT REPORTED [employer] Work Phone: Negative Base Excess, Scott NOT REPORTED [employer] Work Phone: O2 Device/Flow/% NOT REPORTED [employer] Work Phone: Oxygen saturation in Blood 82 % 60.0 - 85.0 % [employer] Work Phone: pCO2, Scott 44.3 [employer] Work Phone: pH, Scott 7.408 [employer] Work Phone: pO2, Scott 46.9 [employer] Work Phone: POC pCO2 Temp NOT REPORTED mm Hg [employer] Work Phone: POC pH Temp NOT REPORTED [employer] Work Phone: POC pO2 Temp NOT REPORTED mm Hg [employer] [facility] Work Phone: Positive Base Excess, Scott 3 [employer] Work Phone: Pt Temp NOT REPORTED [employer] Work Phone: Sample Site NOT REPORTED [employer] [facility] Work Phone: Total CO2, Venous NOT REPORTED 23.0 - 30. 0 mmol/L [employer] Work Phone: XR CHEST PORTABLEOrdered By: Darryl Kennedy on 01-23-2021 No acute process. [facility] Work Phone: EXAMINATION: ONE XRAY VIEW OF THE CHEST 01/23/2021 10:07 pm COMPARISON: None. HISTORY: ORDERING SYSTEM PROVIDED HISTORY: [facility] TECHNOLOGIST PROVIDED HISTORY: chest pain [facility] Reason for Exam: upr Acuity: Unknown Type of Exam: Unknown FINDINGS: The lungs are without acute focal process. There is no effusion or pneumothorax. The cardiomediastinal silhouette is without acute process. The osseous structures are without acute process. [employer] Work Phone: Dao, Mhpn Incoming Radiant Results From [facility] - 01/23/2021 11:05 PM EDT EXAMINATION: ONE XRAY VIEW OF THE CHEST 01/23/2021 10:07 pm COMPARISON: None. HISTORY: ORDERING SYSTEM PROVIDED HISTORY: chest pain [facility] TECHNOLOGIST PROVIDED HISTORY: chest pain [facility] Reason for Exam: upr Acuity: Unknown Type of Exam: Unknown FINDINGS: The lungs are without acute focal process. There is no effusion or pneumothorax. The cardiomediastinal silhouette is without acute process. The osseous structures are without acute process. IMPRESSION: No acute process. [employer] Work Phone: Invisible Phone: Vital Signs Date Time Vital Sign Value Performing Clinician Timmy espino 02-01-2023 04:47-0400 Body height 165.1 cm Stephenie Booker [employer] Phone: [employer] 02-01-2023 04:47-0400 Body mass index (BMI) [Ratio] 33.95 kg/m2 Stephenie Booker [employer] Work Phone: [employer] 02-01-2023 04:47-0400 Body temperature 98.2 [degF] Stephenie Booker [employer] Phone: [employer] 02-01-2023 04:47-0400 Body weight 92.53 kg Stephenie Booker [employer] Phone: [employer] 02-01-2023 04:47-0400 Diastolic blood pressure 67 mm[Hg] Stephenie Booker [employer] Work Phone: [employer] 02-01-2023 04:47-0400 Heart rate 88 /min Stephenie Booker [employer] Phone: [employer] 02-01-2023 04:47-0400 Respiratory rate 16 /min Stephenie Booker [employer] Phone: [employer] 02-01-2023 04:47-0400 SaO2% (BldA) [Mass fraction] 95 % Stephenie Booker DO Work Phone: [facility] 02-01-2023 04:47-0400 Systolic blood pressure 113 mm[Hg] Stephenie Booker DO Work Phone: [facility] 12-10-2021 08:25-0400 Body temperature 98.29 [degF] Markus Berkowitz MD [employer] 12-10-2021 08:25-0400 Diastolic blood pressure 79 mm[Hg] Markus Berkowitz MD [employer] 12-10-2021 08:25-0400 Heart rate 81 /min Markus Berkowitz MD [employer] 12-10-2021 08:25-0400 Respiratory rate 18 /min Markus Berkowitz MD [employer] 12-10-2021 08:25-0400 SaO2% (BldA) [Mass fraction] 96 % Markus Berkowitz MD [employer] 12-10-2021 08:25-0400 Systolic blood pressure 119 mm[Hg] Markus Berkowitz MD [employer] 12-09-2021 08:26-0400 Body height 162.6 cm Markus Berkowitz MD [employer] 12-09-2021 08:26-0400 Body mass index (BMI) [Ratio] 34.33 kg/m2 Markus Berkowitz MD [employer] 12-09-2021 08:26-0400 Body weight 90.72 kg Markus Berkowitz MD [employer] 01-25-2021 16:12-0400 Body temperature 97.7 [degF] Nicolette Mendoza MD Work Phone: [employer] Work Phone: 01-25-2021 16:12-0400 Heart rate 95 /min Nicolette Mendoza MD Work Phone: [employer] Work Phone: 01-25-2021 16:12-0400 Respiratory rate 19 /min Nicolette Mendoza MD Work Phone: [employer] Work Phone: 01-25-2021 16:12-0400 SaO2% (BldA) [Mass fraction] 95 % Nicolette Mendoza MD Work Phone: [employer] Work Phone: 01-25-2021 11:30-0400 Diastolic blood pressure 72 mm[Hg] Nicolette Mendoza MD Work Phone: [employer] Work Phone: 01-25-2021 11:30-0400 Systolic blood pressure 118 mm[Hg] Nicolette Mendoza MD Work Phone: [employer] Work Phone: 01-25-2021 07:05-0400 Body mass index (BMI) [Ratio] 37.11 kg/m2 Nicolette Mendoza MD Work Phone: [employer] Phone: 01-25-2021 07:05-0400 Body weight 101.15 kg Nicolette Mendoza MD Work Phone: [employer] Work Phone: 01-23-2021 22:03-0400 Body height 165.1 cm Nicolette Mendoza MD Work Phone: [employer] Work Phone: Encounters Encounter Date Encounter Type Care Provider Facility Start: 04-23-2023 End: 04-23-2023 ambulatory UNKNOWN PROVIDER Facility:[facility] Start: 02-01-2023 End: 02-01-2023 Emergency department patient visit JEANINE ROSA [facility] Start: 02-01-2023 End: 02-01-2023 Emergency department patient visit Stephenie Booker DO Work Phone: [facility] ED Comment on above: Scrotal hematoma (Pr imary Dx); Scrotal swelling Start: 01-31-2023 End: 02-03-2023 ambulatory VIVIENNE Lu [facility] Start: 01-31-2023 End: 01-31-2023 Subsequent hospital visit by physician Vivienne Munson DO Work Phone: [facility] Comment on above: Laceration of left k zen, initial encounter Start: 01-23-2023 End: 01-27-2023 Evaluation and management of inpatient JEANINE ROSA [facility] Start: 04-03-2022 End: 04-06-2022 ambulatory JEANINE ROSA [facility] Start: 04-03-2022 End: 04-05-2022 Subsequent hospital visit by physician Farzana Swain Xray Rm 1 [facility] Radiology Comment on above: Fall, subsequent enc ounter; Right wrist pain Start: 01-09-2022 End: 01-09-2022 Subsequent hospital visit by physician Gerardo Resp Therapy Rm 400 [facility] Pulm Function Test Comment on above: Chest pain, unspecif ied type Start: 12-09-2021 End: 12-10-2021 Emergency department patient visit Markus Berkowitz MD [address] Med Surg Comment on above: Other chest pain (Pr imary Dx) Start: 01-23-2021 End: 01-25-2021 Evaluation and management of inpatient Nicolette Mendoza MD Work Phone: [facility] 1 Comment on above: ST elevation myocard ial infarction (STEMI), unspecified artery (HCC) (Primary Dx) Procedures Date Procedure Procedure Detail Performing Clinician Start: 02-01-2023 Us scrotum & contents Stephenie Booker DO Work Phone: Start: 02-01-2023 Comprehensive metabolic panel Stephenie Booker DO Work Phone: Start: 01-31-2023 Urnls dip stick/tablet reagent auto microscopy Vivienne Munson DO Work Phone: Start: 04-03-2022 Radex forearm 2 views Jeanine Rosa APR N - SECURITY ASSURANCE ANALYST Work Phone: Start: 01-09-2022 Lung differential function Jeanine Arellano y CHIEF OPERATOR - SECURITY ASSURANCE ANALYST Work Phone: Start: 01-09-2022 COVID-19, RAPID Jeanine Rosa CHIEF OPERATOR - SECURITY ASSURANCE ANALYST Work Phone: Start: 12-10-2021 End: 12-10-2021 Assay of troponin quantitative Sandra Valdivia DO Work Phone: Start: 12-10-2021 End: 12-10-2021 Assay of troponin quantitative Sandra Valdivia DO Work Phone: Start: 12-10-2021 BASIC METABOLIC PANEL W/ REFLEX TO MG FOR LOW K Sandra Mayenir DO Work Phone: Start: 12-10-2021 Assay of troponin quantitative Sandra Mayenir DO Work Phone: Start: 12-09-2021 Glucose blood reagent strip Vito ponce MD Work Phone: Start: 12-09-2021 Assay of troponin quantitative Sandra Valdivia DO Work Phone: Start: 12-09-2021 Glucose blood reagent strip Vito ponce MD Work Phone: Start: 12-09-2021 End: 12-09-2021 Assay of troponin quantitative Sandra Valdivia DO Work Phone: Start: 12-09-2021 COVID-19, RAPID Vito Ruiz MD Work Phone: Start: 12-09-2021 Assay of troponin quantitative Sandra Valdivia DO Work Phone: Start: 12-09-2021 Radiologic exam chest single view Sandra Valdivia DO Work Phone: Start: 12-09-2021 Assay of troponin quantitative Sandra Valdivia DO Work Phone: Start: 03-13-2021 History of placement of stent for coronary artery disease H/O heart artery stent Stc 400 Start: 01-25-2021 Glucose blood reagent strip Franci porter MD Work Phone: Start: 01-25-2021 Glucose blood reagent strip Franci porter MD Work Phone: Start: 01-25-2021 Basic metabolic panel calcium total Natalie Cooley MD Work Phone: Start: 01-25-2021 Lipid panel Franci Ruvalcaba MD Work Phone: Start: 01-24-2021 Glucose blood reagent strip Franci porter MD Work Phone: Start: 01-24-2021 Glucose blood reagent strip Franci porter MD Work Phone: Start: 01-24-2021 End: 01-24-2021 Hemoglobin glycosylated a1c Prince canas PA-C Work Phone: Start: 01-24-2021 Ecg routine ecg w/least 12 lds w/i&r Natalie Cooley MD Work Phone: Start: 01-24-2021 Echo tthrc r-t 2d w/wom-mode compl spec&colr d Stefan Hidalgo MD Work Phone: Start: 01-24-2021 Glucose blood reagent strip Franci porter MD Work Phone: Start: 01-23-2021 End: 01-23-2021 Coagulation time activated Nicolette wilson MD Work Phone: Start: 01-23-2021 End: 01-23-2021 Cardiac catheterization Stefan Hidalgo MD Work Phone: Start: 01-23-2021 Radiologic exam chest single view Darryl Kennedy MD Work Phone: Start: 01-23-2021 BASIC METABOLIC PANEL W/ REFLEX TO MG FOR LOW K Darryl Kennedy MD Work Phone: Start: 01-23-2021 COVID-19, RAPID Darryl Kennedy MD Work Phone: Start: 01-23-2021 End: 01-23-2021 Natriuretic peptide Darryl Kennedy MD Work Phone: Start: 01-23-2021 CALCIUM, IONIC (POC) Nicolette Mendoza MD Work Phone: Start: 01-23-2021 CREATININE W/GFR POINT OF CARE Nicolette Mendoza MD Work Phone: Start: 01-23-2021 ELECTROLYTES PLUS Nicolette Mendoza MD Work Phone: Start: 01-23-2021 LACTIC ACID,POINT OF CARE Nicolette Mendoza MD Work Phone: Start: 01-23-2021 VENOUS BLOOD GAS, POINT OF CARE Nicolette Mendoza MD Work Phone: Start: 01-23-2021 Ecg routine ecg w/least 12 lds w/i&r Darryl Kennedy MD Work Phone: Plan of Treatment Date Care Activity Detail Author Start: 02-02-2024 GFR test (Diabetes, CKD 3-4, OR last GFR 15-59) GFR test (Diabetes, CKD 3-4, OR last GFR 15-59) [facility] Start: 01-28-2024 GFR test (Diabetes, CKD 3-4, OR last GFR 15-59) GFR test (Diabetes, CKD 3-4, OR last GFR 15-59) [facility] Start: 01-25-2024 Hemoglobin A1c measurement A1C test (Diabetic or Prediabetic) [facility] Start: 10-08-2023 Depression Screen Depression Screen [facility] Start: 04-02-2023 Diabetic foot examination Diabetic foot exam [facility] Start: 04-02-2023 Hemoglobin A1c measurement A1C test (Diabetic or Prediabetic) [facility] Start: 03-19-2023 Influenza vaccination Flu vaccine (Season Ended) [facility] Start: 02-07-2023 End: 02-07-2023 Patient encounter procedure 02/07/2023 Office Visit Behavioral Health [facility], [facility] [address] [place] [address] [facility] Start: 02-04-2023 End: 02-04-2023 Patient encounter procedure [facility] [employer] [facility] Start: 12-25-2022 Depression Screen Depression Screen [facility] Start: 12-25-2022 Urine screening for protein [facility] Start: 12-10-2022 Creatinine measurement Creatinine [employer] Start: 12-10-2022 Potassium [Moles/volume] in Serum or Plasma Potassium [employer] Start: 12-09-2022 Hemoglobin A1c measurement A1C test (Diabetic or Prediabetic) [facility] Start: 10-08-2022 End: 10-08-2022 Patient encounter procedure 10/08/2022 Office Visit Primary Care Jeanine Rosa, CHIEF OPERATOR - SECURITY ASSURANCE ANALYST [address] [place] [address] [facility] Start: 04-19-2022 Influenza vaccination [facility] Start: 04-03-2022 End: 04-03-2022 Patient encounter procedure 04/03/2022 Office Visit Primary Care Jeanine Rosa, CHIEF OPERATOR - SECURITY ASS[place]ANCE [place] [address] [facility] Start: 01-31-2022 End: 01-31-2022 Patient encounter procedure 01/31/2022 Office Visit [place]astro[place] [address] [place] [address] [facility] Gastroenterology Start: 01-25-2022 Creatinine measurement Creatinine monitoring [facility] Work Phone: Start: 01-25-2022 Lipid panel [facility] Start: 01-25-2022 Potassium monitoring Potassium monitoring [facility] [employer] Phone: Start: 01-05-2022 Diabetic retinal exam Diabetic retinal exam [facility] Start: 04-26-2021 Hemoglobin A1c measurement A1C test (Diabetic or Prediabetic) [facility] Start: 04-19-2021 Influenza vaccination Flu vaccine (Season Ended) [facility] [employer] Work Phone: Start: 2018 Screening for malignant neoplasm of colon [facility] Start: 1992 DTaP/Tdap/Td vaccine (1 - Tdap) DTaP/Tdap/Td vaccine (1 - Tdap) [facility] Start: 1992 Hepatitis B vaccine (1 of 3 - Risk 3-dose series) Hepatitis B vaccine (1 of 3 - Risk 3-dose series) [employer] Start: 10-27-1991 Diabetic microalbuminuria test Diabetic microalbuminuria test [employer] Phone: Start: 10-27-1991 Diabetic retinal exam [facility] retinal [facility] Start: 10-27-1991 Glaucoma screening Diabetic retinal exam [facility] Start: 10-27-1991 Hepatitis C screening [facility]atitis C screen [facility] Start: 10-27-1991 Urine screening for protein Diabetic microalbuminuria test [employer] Start: 1988 HIV screening [facility] screen [facility] Start: 1985 COVID-19 Vaccine (1) COVID-19 Vaccine (1) [facility] Phone: Start: 1985 Depression Screen [facility] Screen [facility] Start: 10-27-1983 Diabetic foot examination [facility]abetic foot exam [facility] Start: 10-27-1983 Diabetic retinal exam [facility] Phone: Start: 10-27-1979 Pneumococcal 0-64 years Vaccine (1 - PCV) Pneumococcal 0-64 years Vaccine (1 - PCV) [employer] Start: 10-27-1979 Pneumococcal 0-64 years Vaccine (1 of 2 - PPSV23) Pneumococcal 0-64 years Vaccine (1 of 2 - PPSV23) [employer] Phone: Start: 1978 COVID-19 Vaccine (1) COVID-19 Vaccine (1) [facility] Start: 04-28-1974 COVID-19 Vaccine (#1) COVID-19 Vaccine (#1) [facility] [employer] Start: 1973 Hepatitis C screening [facility]atitis C screen [facility] Phone: End: 01-23-2021 Catheterization and angiography procedure details panel Cardiac Catheterization Cardiac Cath Routine One Time for 1 Occurrences starting 01/23/2021 until 01/23/2021 [employer] Phone: Comment on above: One Time for 1 Occurrences starting 02/2021 until 01/23/2021 End: 01-09-2022 COVID-19, Rapid COVID-19, Rapid Microbiology STAT One Time for 1 Occurrences starting 01/09/2022 until 01/09/2022 [employer] Phone: Comment on above: One Time for 1 Occurrences starting 12/18 until 01/09/2022 EKG 12 lead EKG 12 lead ECG Routine As Needed for 1 Occurrences starting 12/09/2021 [employer] Phone: Comment on above: As Needed for 1 Occurrences starting Full PFT study Full PFT study P FT Routine 01/09/2022 [employer] Phone: Glucose [Mass/volume ] in Serum or Plasma [employer]visible Phone: Comment on above: 4X Daily (AC & HS) until discontinued st arting 01/25/2021 As Needed until disc ontinued starting 01/25/2021 Glucose [Mass/volume ] in Serum or Plasma [employer] Phone: Comment on above: 4X Daily (AC & HS) until discontinued st arting 12/09/2021 As Needed until disc ontinued starting 12/09/2021 End: 12-09-2021 Hemoglobin A1c/Hemoglobin.total in Blood [employer] Phone: Comment on above: Once for 1 Occurrences starting 12/10/19 until 12/09/2021 LAB SCANNED REPORT LAB SCANNED R EPORT Lab Ordered: 01/25/2021 [employer] Phone: Comment on above: Ordered: 01/25/2021 Oxygen therapy [[employer] Data Set] Initiate Oxygen Therapy Protocol Respiratory Care Routine Daily until discontinued starting 01/23/2021 [employer] Phone: Comment on above: Daily until discontinued starting 2020 Oxygen therapy [[employer] Data Set] Initiate Oxygen Therapy Protocol Respiratory Care Routine As Needed until discontinued starting 12/09/2021 [employer]visible Phone: Comment on above: As Needed until discontinued starting PULMONARY FUNCTION T EST REPORT PULMONARY FUNCTION TEST REPORT PFT Ordered: 01/09/2022 [employer] Comment on above: Ordered: 01/09/2022 Troponin I.cardiac [Mass/volume] in Serum or Plasma Troponin Lab Timed Daily until discontinued starting 01/25/2021, 1 completed [employer] Work Phone: Comment on above: Daily until discontinued starting 2020, 1 completed End: 12-11-2021 Troponin I.cardiac [Mass/volume] in Serum or Plasma Troponin Lab Routine Every 6 Hours (Lab) for 7 Occurrences starting 12/09/2021 until 12/11/2021, 4 completed [employer] Work Phone: Comment on above: Every 6 Hours (Lab) for [address] arting 12/09/2021 until 12/11/2021, 4 completed End: 02-01-2023 Urinalysis with Reflex to Culture Urinalysis with Reflex to Culture Lab STAT One Time for 1 Occurrences starting 02/01/2023 until 02/01/2023 [employer] Comment on above: One Time for 1 Occurrences starting 01/17 until 02/01/2023 US SCROTUM W LIMITED DUPLEX US SCROTUM W LIMITED DUPLEX Imaging STAT 02/01/2023 6:28 AM EDT [employer] Payers Date Payer Category Payer Unknown [id number] 2022 Medicaid [id number] 2014 Unknown [id number] 1973 Unknown [id number] [id number] 1973 Unknown [id number] [id number] 1973 Unknown [id number] 2.16.8 [id number] 1973 Unknown [id number] 2.16.8 [id number] 1973 Unknown [id number] 2.16. [id number] 1973 Unknown [id number] 2.16. [id number] 1973 Unknown [id number] 2.16. [id number] 1973 Unknown [id number] [id number]. [id number] Social History Date Type Detail Facility Start: 01-24-2021 End: 03-26-2022 Tobacco smoking status [facility] Former smoker [employer] Phone: End: 08-19-2007 History of tobacco use Cigarette Smoker [employer] Start: 01-24-2021 End: 02-01-2023 Alcohol intake Current drinker of alcohol (finding) [employer] Phone: Start: 1975 [facility] Start: 11-29-2021 End: 12-09-2021 Exposure to SARS-CoV-2 (event) Not sure [employer] Start: 12-09-2021 End: 02-01-2023 Alcohol intake [employer] Phone: Start: 12-09-2021 History SDOH Alcohol Comment daily [employer] Phone: End: 08-19-2007 History of tobacco use Current smoker [employer] Phone: Start: 01-24-2021 End: 03-26-2022 Tobacco use and exposure Smokeless tobacco non-user [employer] Phone: Start: 12-25-2021 End: 10-08-2022 History SDOH Financial 5 [employer] Phone: Start: 12-25-2021 End: 10-08-2022 History SDOH Food Worry 1 [facility] [employer] Work Phone: Start: 10-08-2022 End: 01-23-2023 History SDOH Alcohol Std Drinks 2 [facility] [email or web address] Start: 02-01-2023 History SDOH Alcohol Frequency 4 [facility] Medical Equipment Procedure Code Equipment Code Equipment Origin al Text Equipment Identifier Dates 1 each by Does n ot apply route 3 times daily [id number] Start: 01-25-2021 1 each by Does n ot apply route 3 times daily [id number] Start: 01-25-2021 End: 01-25-2021 Clinical Notes 01-25-2021 to 02-01-2023 Johanne Martinez RN - 12/10/2021 1:06 PM Elías Mendoza MD - 12/10/2021 11:25 AM Kim Juarez DO - 12/10/2021 7:27 AM Lizbeth Hua RN - 01/25/2021 6:00 PM EDTDischarge Instr - Diet Note Date & Type Note Facility 02-01-2023 Note EXAMINATION: ULTRASOUND OF THE SCROTUM/TESTICLES WITH COLOR DOPPLER FLOW EVALUATION 02/01/2023 TECHNIQUE: Duplex ultrasound using B-mode/paul scaled imaging, Doppler spectral analysis and color flow Doppler was obtained of the testicles. COMPARISON: None. HISTORY: ORDERING SYSTEM PROVIDED HISTORY: left testicle pain, recent trauma TECHNOLOGIST PROVIDED HISTORY: left testicle pain, recent trauma FINDINGS: Measurements: Right Testicle: 4.7 x 2.4 x 3.1 cm. Left Testicle: 4.2 x 3.6 x 3 cm. Right: Moura Scale: The right testicle demonstrates normal homogeneous echotexture without focal lesion. No evidence of testicular microlithiasis. Doppler Evaluation: There is normal arterial and venous Doppler flow within the testicle. Scrotal Sac: No evidence of hydrocele. Epididymis: No acute abnormality. Left: Moura Scale: The left testicle demonstrates normal homogeneous echotexture without focal lesion. No evidence of testicular microlithiasis. Doppler Evaluation: There is normal arterial and venous Doppler flow within the testicle. Scrotal Sac: Small left scrotal hydrocele. Epididymis: No acute abnormality. IMPRESSION: Small left scrotal hydrocele. Otherwise unremarkable testicular ultrasound with normal Doppler flow in both testicles. No evidence of testicular mass. Interpreted by: Segundo Stevenson MD Signed by: Segundo Stevenson MD 02/01/23 Final result [facility] 01-27-2023 Note PROCEDURE: SP ANGIO RENAL UNILATERAL INCLUSIVE 01/24/2023 HISTORY: ORDERING SYSTEM PROVIDED HISTORY: Left renal laceration TECHNOLOGIST PROVIDED HISTORY: Left renal laceration CONTRAST: Optiray-350 SEDATION: None FLUOROSCOPY DOSE AND TYPE: Radiation Exposure Index: Kerma mGy, 545 DESCRIPTION OF PROCEDURE AND FINDINGS: Informed consent was obtained after a detailed explanation of the procedure including risks, benefits, and alternatives. [place] protocol was observed. Sterile gowns, masks, hats and gloves utilized for maximal sterile barrier. Puncture site: Right common femoral artery. Injections: Left renal artery in several oblique projections, right external iliac artery. Right groin was prepped and draped in standard sterile fashion. 1% lidocaine was used for local anesthesia. Using realtime ultrasound guidance, a micropuncture needle was used to access the right common femoral artery. Ultrasound image was obtained and stored in PACS and demonstrates a safe tract and access into the artery. Guidewire was advanced centrally and a 5 Tamazight sheath placed. Selective injections of the left renal artery show an area of relative hypovascularity in the mid to lower pole compatible with history of known injury. No active extravasation or pseudoaneurysm is seen. An injection through the sheath confirms safe access to the common femoral artery for a closure device. The right groin was re-prepped. Mynx closure device was deployed successfully and gentle manual compression was used to achieve hemostasis. There were no immediate complications. The patient left the department in stable condition. EBL: Less than 10 mL. IMPRESSION: Left renal angiogram shows no evidence of active bleeding. Findings were discussed with VIVIENNE MUNSON at 3:30 pm on 01/24/2023. Interpreted by: Juliocesar Mcdonald MD Signed by: Juliocesar Mcdonald MD 01/27/23 Final result [facility] 12-10-2021 History of Presen t illness Narrative Patient Discharged with belongings and instructions given to patient, patient verbalizes understanding. Patient ambulated off of unit with family and family will transport patient to private residence in private vehicle. [facility] CDU / OBSERVATION ENCOUNTER ATTENDING NOTE I performed a history and physical examination of the patient and discussed management with the resident or midlevel provider. I reviewed the resident or midlevel provider's note and agree with the documented findings and plan of care. Any areas of disagreement are noted on the chart. I was personally present for the greenwood portions of any procedures. I have documented in the chart those procedures where I was not present during the greenwood portions. I have reviewed the nurses notes. I agree with the chief complaint, past medical history, past surgical history, allergies, medications, social and family history as documented unless otherwise noted below. The Family history, social history, and ROS are effectively unchanged since admission unless noted elsewhere in the chart. Patient admitted to the ETU for chest pain. He says that his pain started 1 day ago and is much improved today. He says that the pain would come and go and described it as a pressure-like sensation. He says he was also feeling short of breath. He denies any recent fever, cough, abdominal pain, vomiting or diarrhea. On my exam, patient is resting comfortably in the bed and appears well. Lungs clear to auscultation bilaterally and heart sounds are normal. Abdomen is soft and nontender. Cardiology has been consulted. Will await their recommendations. Nicolette Mendoza MD Attending Emergency Physician OBS/CDU RESIDENT NOTE Patients PCP is: No primary care provider on file. SUBJECTIVE No acute events overnight. Has been able to tolerate a full diet without nausea or vomiting. The patient is urinating on his own and is passing flatus. Denies fever, chills, nausea, vomiting, chest pain, shortness of breath, abdominal pain, focal weakness, numbness, tingling, urinary/bowel symptoms, vision changes, visual hallucinations, or headache. PHYSICAL EXAM General: NAD, AO X 3 Heent: EMOI, PERRL Neck: SUPPLE, NO JVD Cardiovascular: RRR, S1S2 Pulmonary: CTAB, NO SOB Abdomen: SOFT, NTTP, ND, +BS Extremities: +2/4 PULSES DISTAL, NO SWELLING Neuro / Psych: NO NUMBNESS OR TINGLING, MENTATION AT BASELINE PERTINENT TEST /EXAMS I have reviewed all available laboratory results. MEDICATIONS CURRENT aspirin chewable tablet 81 mg, Daily atorvastatin (LIPITOR) tablet 80 mg, Nightly omega-3 acid ethyl esters (LOVAZA) capsule 2 g, BID lisinopril (PRINIVIL;ZESTRIL) tablet 5 mg, Daily metFORMIN (GLUCOPHAGE) tablet 1,000 mg, BID WC metoprolol tartrate (LOPRESSOR) tablet 75 mg, BID ticagrelor (BRILINTA) tablet 90 mg, BID sodium chloride flush 0.9 % injection 5-40 mL, 2 times per day sodium chloride flush 0.9 % injection 5-40 mL, PRN 0.9 % sodium chloride infusion, PRN enoxaparin (LOVENOX) injection 40 mg, Daily ondansetron (ZOFRAN-ODT) disintegrating tablet 4 mg, Q8H PRN Or ondansetron (ZOFRAN) injection 4 mg, Q6H PRN polyethylene glycol (GLYCOLAX) packet 17 g, Daily PRN acetaminophen (TYLENOL) tablet 650 mg, Q6H PRN Or acetaminophen (TYLENOL) suppository 650 mg, Q6H PRN insulin lispro (HUMALOG) injection vial 0-6 Units, TID WC insulin lispro (HUMALOG) injection vial 0-3 Units, Nightly glucose (GLUTOSE) 40 % oral gel 15 g, PRN dextrose 50 % IV solution, PRN glucagon (rDNA) injection 1 mg, PRN dextrose 5 % solution, PRN All medication charted and reviewed. CONSULTS IP CONSULT TO CARDIOLOGY IP CONSULT TO CARDIOLOGY ASSESSMENT/PLAN John Knight is a 46 y.o. male who presents with concerns for chest pain. Patient has a known history of coronary artery disease. Cardiology following, appreciate recommendations Patient has history of cardiac catheterization the last year Currently on Brilinta Patient also history of chronic cough for the last several years, is currently on lisinopril. Will consider discontinuation of the lisinopril pending cardiology evaluation. Continue home medications and pain control Monitor vitals, labs, and imaging DISPO: pending consults and clinical improvement -- Darryl Juarez DO Emergency Medicine Resident Physician This dictation was generated by voice recognition computer software. Although all attempts are made to edit the dictation for accuracy, there may be errors in the library technician that are not intended. documented in this encounter Invisible Phone: 01-25-2021 History of Presen t illness Narrative All discharge instructions reviewed with patient and . All questions answered. IVs removed. Meds delivered from [id number]. Pt. Taken to car in wheelchair accompanied by staff. Echo done at patient bedside. Images from the original note were not included. Ilda Bindery Chief Progress Note Date: 01/24/2021 Patient name: John Knight Date of admission: 01/23/2021 9:57 PM Date of : 1975 PCP: No primary care provider on file. Reason for Admission: STEMI (ST elevation myocardial infarction) ([facility]) [I21.3] Subjective: Clinical Changes / Abnormalities: Denies chest pain I/O last 3 completed shifts: In: 500 [P.O.:500] Out: 625 [Urine:625] I/O this shift: In: - Out: 700 [Urine:700] In: 500 [P.O.:500] Out: 1325 [Urine:1325] Intake/Output Summary (Last 24 hours) at 01/24/2021 0909 Last data filed at 01/24/2021 0754 Gross per 24 hour Intake 500 ml Output 1325 ml Net -825 ml I/O since admission: -0.8 liters Medications: Scheduled Meds: aspirin 81 mg Oral Daily atorvastatin 80 mg Oral Nightly ticagrelor 90 mg Oral BID sodium chloride flush 5-40 mL Intravenous 2 times per day insulin lispro 0-18 Units Subcutaneous TID WC insulin lispro 0-9 Units Subcutaneous Nightly nicotine 1 patch Transdermal Daily enoxaparin 40 mg Subcutaneous Daily metoprolol tartrate 25 mg Oral BID lisinopril 5 mg Oral Daily Continuous Infusions: sodium chloride CBC: Recent Labs 01/23/212212 WBC 9.3 HGB 17.3* PLT 224 BMP: Recent Labs 01/23/21219901/23/212212 NA -- 134* K -- 4.2 CL -- 97* CO2 -- 22 BUN -- 10 CREATININE 0.95 0.85 GLUCOSE -- 433* Hepatic: No results for input(s): AST, ALT, ALB, BILITOT, ALKPHOS in the last 72 hours. Troponin: No results for input(s): TROPONINI in the last 72 hours. Recent Labs 01/23/212212 TROPONINT NOT REPORTED BNP: Recent Labs 01/23/212212 PROBNP <20 No results for input(s): BNP in the last 72 hours. Lipids: No results for input(s): CHOL, HDL in the last 72 hours. Invalid input(s): LDLCALCU INR: Recent Labs 01/23/212211 INR 1.1 Objective: Vitals: BP 138/87 Pulse 99 Temp 97.6 F (36.4 C) (Oral) Resp 16 Ht 5' 5 (1.651 m) Wt 216 lb 1.6 oz (98 kg) SpO2 97% BMI 35.96 kg/m Last Recorded Weight: @PATIENTWT@ General appearance: awake, alert, in no apparent distress. HEENT: Head: Normocephalic, atraumatic without any obvious abnormalities. Neck: JVD present/absent Lungs:good bilateral equal air entry. No adventitious lung sounds auscultated. Heart: regular rate and rhythm, S1, S2 normal, no murmur, click, rub or gallop. No pain on palpation of the anterior chest. Abdomen: soft, nontender with bowel sounds present in all 4 quadrants. Extremities: mild oozing, no hematoma Integumentum:Intact with no rashes noted. Diagnostic Studies: Successful PCI / Drug Eluting Stent of the proximal and mid LCX. Non-obstructive LAD and RCA disease. Small diffusely diseased diabetic vessels. Borderline LV systolic function Patient Active Problem List: STEMI (ST elevation myocardial infarction) ([facility]) Assessment / Acute Cardiac Problems: 1. Inferior STEMI s/p JATINDER to prox, mid LCx 2. Non obstructive disease in LAD and RCA with smalll diffuse disease 3. DM -uncontrolled Plan of Treatment: 1. Continue aspirin, ticagrelor 2. Continue atorvastatin 80 mg 3. Conitnue metoprolol 25 mg BID 4. Lovenox for DVT ppx 5. ECHO 6. Medicine consult for DM management Natalie Cooley MD, MD Fellow, Cardiovascular [facility] Attending Physician Statement I have discussed the case of John Knight including pertinent history and exam findings with the resident. I have seen and examined the patient and the greenwood elements of the encounter have been performed by me. I agree with the assessment, plan and orders as documented by the resident With changes made to the note. . Weott Bindery Chief [phone] Dr. Hidalgo with Cardiology at the bedside and notified patient right groin puncuture sight bleedings and typewriter ribbon winder held 5 minutes of manual pressure and apply safeguard. Dr. Hidalgo assess site and no new orders. documented in this encounter Invisible Phone: 01-25-2021 Hospital Discharg Lizbeth De La Fuente RN - 01/25/2021 5:03 PM EDT Good nutrition is important when healing from an illness, injury, or surgery. Follow any nutrition recommendations given to you during your hospital stay. If you were given an oral nutrition supplement while in the hospital, continue to take this supplement at home. You can take it with meals, in-between meals, and/or before bedtime. These supplements can be purchased at most local grocery stores, pharmacies, and chain super-stores. If you have any questions about your diet or nutrition, call the hospital and ask for the dietitian. Lizbeth Brenner RN - 01/25/2021 5:03 PM EDT Continuity of Care Form Patient Name: John Knight : 1975 Admit date: 01/23/2021 Discharge date: Code Status Order: Full Code Advance Directives: Advance Care Flowsheet Documentation Date/Time Healthcare Directive Type of Healthcare Directive Copy in Chart Healthcare Agent Appointed Healthcare Agent's Name Healthcare Agent's Phone Number 01/24/21 0106 Yes, patient has an advance directive for healthcare treatment Living will Admitting Physician: Franci Ruvalcaba MD PCP: No primary care provider on file. Discharging Nurse: Discharging Hospital Unit/Room#: 1011/1011-01 Discharging Unit Phone Number: Emergency Contact: Extended Emergency Contact Information Primary Emergency Contact: Jasmin Smiley [facility] Relation: Other Past Surgical History: Past Surgical History: Procedure Laterality Date APPENDECTOMY CHOLECYSTECTOMY TONSILLECTOMY Immunization History: There is no immunization history on file for this patient. Active Problems: Patient Active Problem List Diagnosis Code STEMI (ST elevation myocardial infarction) ([facility]) I21.3 Type 2 diabetes mellitus with hyperglycemia, without long-term current use of insulin ([facility]) E11.65 Hyponatremia E87.1 Gastroesophageal reflux disease without esophagitis K21.9 Isolation/Infection: Isolation No Isolation Patient Infection Status None to display Nurse Assessment: Last Vital Signs: BP 118/72 Pulse 95 Temp 97.7 F (36.5 C) (Oral) Resp 19 Ht 5' 5 (1.651 m) Wt 223 lb (101.2 kg) SpO2 95% BMI 37.11 kg/m Last documented pain score (0-10 scale): Pain Level: 0 Last Weight: Wt Readings from Last 1 Encounters: 01/25/21 223 lb (101.2 kg) Mental Status: {IP PT MENTAL STATUS:} IV Access: { KACEY IV ACCESS:592441161} Nursing Mobility/ADLs: Walking {CHP DME ADLs:104206012} Transfer {CHP DME ADLs:142928582} Bathing {CHP DME ADLs:152187125} Dressing {P DME ADLs:269989912} Toileting {P DME ADLs:279943125} Feeding {CHP DME ADLs:101606706} Forensic Ballistics Expert {P DME ADLs:194238292} Med Delivery { KACEY MED Delivery:044619021} Wound Care Documentation and Therapy: Elimination: Continence: Bowel: {YES / NO:} Bladder: {YES / NO:} Urinary Catheter: {Urinary Catheter:266169539} Colostomy/Ileostomy/Ileal Conduit: {YES / NO:} Date of Last BM: Intake/Output Summary (Last 24 hours) at 01/25/2021 1703 Last data filed at 01/25/2021 0000 Gross per 24 hour Intake 200 ml Output Net 200 ml I/O last 3 completed shifts: In: 200 [P.O.:200] Out: - Safety Concerns: { KACEY Safety Concerns:747113959} Impairments/Disabilities: {[facility] Impairments/Disabilities:3484253 71} Nutrition Therapy: Current Nutrition Therapy: { KACEY Diet List:033136951} Routes of Feeding: {[facility] DME Other Feedings:764059959} Liquids: {[facility] liquid thickness:58263} Daily Fluid Restriction: {[facility] DME Yes amt example:771408716} Last Modified Barium Swallow with Video (Video Swallowing Test): {Done Not Done Date:} Treatments at the Time of Hospital Discharge: Respiratory Treatments: Oxygen Therapy: {Therapy; copd oxygen:89616} Ventilator: {[facility] Vent List:013249869} Rehab Therapies: {THERAPEUTIC INTERVENTION:7519123681} Weight Bearing Status/Restrictions: {[facility] Weight Bearin} Other Medical Equipment (for information only, NOT a DME order): {EQUIPMENT:282492515} Other Treatments: Patient's personal belongings (please select all that are sent with patient): {[facility] DME Belongings:491677105} RN SIGNATURE: {Esignature:517729408} CASE MANAGEMENT/SOCIAL WORK SECTION Inpatient Status Date: Readmission Risk Assessment Score: Readmission Risk Risk of Unplanned Readmission: 8 Discharging to Facility/ Agency Name: Address: Phone: Fax: Dialysis Facility (if applicable) Name: Address: Dialysis Schedule: Phone: Fax: Diesel Engineer/Professional Athlete signature: {Esignature:856638022} PHYSICIAN SECTION Prognosis: {Prognosis:5337296162} Condition at Discharge: {[facility] Patient Condition:112521480} Rehab Potential (if transferring to Rehab): {Prognosis:8685468024} Recommended Labs or Other Treatments After Discharge: Physician Certification: I certify the above information and transfer of John Knight is necessary for the continuing treatment of the diagnosis listed and that he requires {Admit to Appropriate Level of Care:25875} for {GREATER/LESS:043847140} 30 days. Update Admission H&P: {CHP DME Changes in HandP:942082452} PHYSICIAN SIGNATURE: {Esignature:792841802} The following attachments cannot be sent through Care Everywhere.PCI (Percutaneous Coronary Intervention): Post-op ([place])Coronary Artery Disease ([place])Diabetes: Heart Attack and Stroke Risk: General Info ([place])documented in this encounter Invisible Phone: Evaluation note Diagnosis ST elevation myocardial infarction (STEMI), unspecified artery (HCC)- Primary Type 2 diabetes mellitus with hyperglycemia, without long-term current use of insulin (HCC) Hyponatremia Hyposmolality and/or hyponatremia Gastroesophageal reflux disease without esophagitis Esophageal reflux documented in this encounter Invisible Phone: evaluation note* Diagnosis Chest pain- Primary Chest pain, unspecified Other chest pain documented in this encounter Invisible Phone: evaluation note* Diagnosis Chest pain, unspecified type documented in this encounter Valentin Uzhun Phone: evaluation note* Diagnosis Fall, subsequent encounter Right wrist pain Pain in joint, forearm documented in this encounter Valentin Uzhun Phone: evaluation note* Diagnosis Laceration of left kidney, initial encounter documented in this encounter 3D Product Imagingaluation note* Diagnosis Scrotal hematoma- Primary Specified vascular disorder of male genital organs Scrotal swelling Edema of male genital organs [facility]* Instructions* LarryDarryl Lexie, DO - 12/10/2021 Thank you for visiting [facility]. He was seen and evaluated by the cardiology team while you were here for concerns of chest pain. They did not feel that he needed any further testing at this time. He can follow-up with our office asan outpatient the next 2 to 3 weeks at the number provided. You to call your primary care provider to follow-up from this hospital visit. Please follow-up within the next 3 to 5 days. If you do not have a primary care provider, you can establish care with [facility] at the information given above. PLEASE RETURN TO THE ED IMMEDIATELY for worsening symptoms, or if you develop any concerning symptoms such as: high fever not relieved by tylenol and/or motrin, chills, shortness of breath, chest pain, persistent nausea and/or vomiting, numbness, weakness or tingling in the arms or legs or change in color of the extremities, changes in mental status, persistent headache, blurry vision, inability to urinate, unable to follow up with your physician, or other any other Care or concern. * Attachments The following attachments cannot be sent through Care Everywhere. * Chest Pain ([place]) documented in [facility] Now Work Phone: Hospital Discharge instructions* Attachments The following attachments cannot be sent through Care Everywhere. * Testicular Pain ([place]) * Testicular Contusion ([place]) [facility] Advance Directives No Advanced Directives Records FoundLatest Code Status on File Code Status Date Activated Date Inactivated Comments Full Code 01/23/2021 11:27 PM Latest Code Status on File Code Status Date Activated Date Inactivated Comments Full Code 12/09/2021 12:49 PM Full Code 01/23/2021 11:27 PM 01/25/2021 8:24 PM Latest Code Status on File Code Status Date Activated Date Inactivated Comments Full Code 12/09/2021 12:49 PM 12/10/2021 3:22 PM Full Code 01/23/2021 11:27 PM 01/25/2021 8:24 PM Latest Code Status on File Code Status Date Activated Date Inactivated Comments Full Code 12/09/2021 12:49 PM 12/10/2021 3:22 PM Latest Code Status on File Code Status Date Activated Date Inactivated Comments Full Code 01/23/2023 8:23 PM 01/27/2023 3:11 PM Code Status History Code Status Date Activated Date Inactivated Comments Full Code 12/09/2021 12:49 PM 12/10/2021 3:22 PM Full Code 01/23/2021 11:27 PM 01/25/2021 8:24 PM Summary Purpose Family History No Family History Records FoundNo Family History Records FoundNo Family History Records Found Additional Source Comments Reason for Visit (unrecogniz ed section and content) Reason Comments Chest Pain Status Reason Specialty Diagnoses / Procedures Referre d By Contact Referred To Contact Diagnoses STEMI (ST elevation myocardial infarction) ([facility]) Franci Ruvalcaba MD [address] [address] [facility] Specialty Diagnoses / Procedures Referred By Contac t Referred To Contact Diagnoses Chest pain, unspecified type Procedures Full PFT Study With Bronchodilator Jeanine Rosa, CHIEF OPERATOR - SECURITY ASS[place]ANCE [place] [address] Referral ID Status Reason Start Date Expiration Date V isits Requested Visits Authorized [id number] Pending Review 12/25/2021 12/25/2022 1 1 Reason Comments Groin Swelling About a week Ordered Prescriptions (unrec ognized section and content) Prescription Sig Dispensed Refills Start Date End Da te dapagliflozin (FARXIGA) 10 MG tablet Take 1 tablet by mouth every morning 30 tablet 0 01/25/2021 02/24/2021 ticagrelor (BRILINTA) 90 MG TABS tablet Take 1 tablet by mouth 2 times daily 60 tablet 11 01/25/2021 metoprolol tartrate 75 MG TABS Take 75 mg by mouth 2 times daily 60 tablet 3 01/25/2021 lisinopril (PRINIVIL;ZESTRIL) 5 MG tablet Take 1 tablet by mouth daily 30 tablet 3 01/26/2021 atorvastatin (LIPITOR) 80 MG tablet Take 1 tablet by mouth nightly 30 tablet 3 01/25/2021 aspirin 81 MG chewable tablet Take 1 tablet by mouth daily 30 tablet 3 01/26/2021 Lancets MISC 1 each by Does not apply route 3 times daily 200 each 5 01/25/2021 glipiZIDE (GLUCOTROL) 5 MG tablet Take 1 tablet by mouth 2 times daily (before meals) 60 tablet 1 01/25/2021 01/25/2021 Lancets MISC 1 each by Does not apply route 3 times daily 200 each 5 01/25/2021 01/25/2021 dapagliflozin (FARXIGA) 10 MG tablet Take 1 tablet by mouth every morning 90 tablet 1 01/25/2021 01/25/2021 Prescription Sig Dispensed Refills Start Date End Da te oxyCODONE (ROXICODONE) 5 MG immediate release tabletIndications:Scrota l hematoma Take 1 tablet by mouth every 6 hours as needed for Pain for up to 3 days. Intended supply: 3 days. Take lowest dose possible to manage pain Max Daily Amount: 20 mg 10 tablet 0 02/01/2023 02/04/2023 oxyCODONE-acetaminophen (PERCOCET) 5-325 MG per tabletIndications:Scrota l hematoma Take 1 tablet by mouth every 6 hours as needed for Pain for up to 3 days. Intended supply: 3 days. Take lowest dose possible to manage pain Max Daily Amount: 4 tablets 12 tablet 0 02/01/2023 02/01/2023 Scheduled Active and Recently Administ ered Medications (unrecognized section and content) Medication Order 01/23/2021 01/24/2021 01/25/2021 aspirin chewable tablet 81 mg 81 mg, Oral, DAILY, First dose on Sat01/24/21 at 0900 0906 (Given - Provider: Torin Rod RN) 0850 (Given - Provider: Lizbeth Brenner RN) atorvastatin (LIPITOR) tablet 80 mg 80 mg, Oral, NIGHTLY, First dose on Sat01/23/21 at 2330 0224 (Given - Provider: Madeline Allen RN)2021 (Given - Provider: Luis Eduardo Monroe RN) 2100 (Due) enoxaparin (LOVENOX) injection 40 mg 40 mg, Subcutaneous, DAILY, First dose on Sat01/24/21 at 0900 0906 (Given - Provider: Torin Rod RN) 0850 (Given - Provider: Lizbeth Brenner RN) fentaNYL (SUBLIMAZE) injection 50 mcg (COMPLETED) 50 mcg, Intravenous, ONCE, On Sat01/23/21 at 2215, For 1 dose, If oral and IV narcotics ordered, use oral first and only use IV if oral is ineffective or cannot take oral. Do Not give oral and IV within 1 hour of each other unless specifically ordered. 221 (Given - Provider: Ashley Dorsey RN) heparin (porcine) injection 4,000 Units (COMPLETED) 4,000 Units, Intravenous, ONCE, On Sat01/23/21 at 2215, For 1 dose, Initial one time bolus 221 (Given - Provider: Ashley Dorsey RN) insulin glargine (LANTUS) injection vial 5 Units 5 Units, Subcutaneous, 2 TIMES DAILY, First dose on Sat01/25/21 at 1000 1241 (Given - Provider: Lizbeth Brenner, TROY)2100 (Due) insulin lispro (HUMALOG) injection vial 0-18 Units 0-18 Units, Subcutaneous, 3 TIMES DAILY WITH MEALS, First dose on Sat01/24/21 at 0800, High Dose Corrective Algorithm Glucose: Dose: 70-139 No Insulin 140-199 3 Units 200-249 6 Units 250-299 9 Units 300-349 12 Units 350-400 15 Units Over 400 18 Units 0757 (Given - Provider: Torin Rod RN)1147 (Given - Provider: Torin Rod RN)1628 (Given - Provider: Torin Rod RN) 0850 (Given - Provider: Lizbeth Brenner RN)1241 (Given - Provider: Lizbeth Brenner RN)1700 (Due) insulin lispro (HUMALOG) injection vial 0-9 Units 0-9 Units, Subcutaneous, NIGHTLY, First dose on Sat01/23/21 at 2330, If continuous tube feedings/TPN/NPO, give correction dose based on result, no reduction in dose. If eating or bolus tube feeding: High Dose Corrective Algorithm Glucose: Dose: 70-139 No Insulin 140-199 2 Units 200-249 3 Units 250-299 5 Units 300-349 6 Units 350-400 7 Units Over 400 9 Units 0025 (Given - Provider: Madeline Allen RN)2021 (Given - Provider: Luis Eduardo Monroe RN - Comment: [id number]) 2100 (Due) lisinopril (PRINIVIL;ZESTRIL) tablet 5 mg 5 mg, Oral, DAILY, First dose on Sat01/24/21 at 0000 0100 (Given - Provider: Madeline Allen RN) 1021 (Given - Provider: Lizbeth Brenner, TROY) metoprolol tartrate (LOPRESSOR) tablet 25 mg (CANCELED) 25 mg, Oral, 2 TIMES DAILY, First dose (after last modification) on Sat01/23/21 at 2345 0015 (Given - Provider: Madeline Allen RN)0910 (Given - Provider: Torin Rod RN) metoprolol tartrate (LOPRESSOR) tablet 25 mg (COMPLETED) 25 mg, Oral, ONCE, On Sat01/25/21 at 0945, For 1 dose 1021 (Given - Provider: Lizbeth Brenner RN) metoprolol tartrate (LOPRESSOR) tablet 50 mg (CANCELED) 50 mg, Oral, 2 TIMES DAILY, First dose (after last modification) on Sat01/24/21 at 2100 2021 (Given - Provider: Luis Eduardo Monroe RN) 0851 (Given - Provider: Lizbeth Brenner RN) metoprolol tartrate (LOPRESSOR) tablet 75 mg 75 mg, Oral, 2 TIMES DAILY, First dose (after last modification) on Sat01/25/21 at 2100 2100 (Due) nicotine (NICODERM CQ) 21 MG/24HR 1 patch 1 patch, Transdermal, Administer over 24 Hours, DAILY, First dose on Sat01/24/21 at 0900, Apply new patch to nonhairy, clean, dry skin on the upper body or upper outer arm. Rotate patch sites. Notify pharmacy if patient or provider prefers patch to be removed at bedtime and replaced in the morning. Hazardous Medication -- Refer to facility policy for handling and disposal. 0825 (Not Given - Provider: Torin Rod RN - Reason: Patient/family refused) 0850 (Not Given - Provider: Lizbeth Brenner RN - Reason: Patient/family refused - Comment: Pt has no been a smoker in 13 years.) pantoprazole (PROTONIX) tablet 40 mg 40 mg, Oral, DAILY BEFORE BREAKFAST, First dose on Sat01/25/21 at 0700, Do not crush or break. 0703 (Given - Provider: Luis Eduardo Monroe RN) sodium chloride flush 0.9 % injection 5-40 mL 5-40 mL, Intravenous, EVERY 12 HOURS SCHEDULED (2 times per day), First dose on Sat01/23/21 at 2330, For Line Patency: Peripheral IV = 5 mL; Midline or Central Line = 10 mL/lumen. If following IV push medication, administer flush at same rate as the IV push. Flush volume is determined by type of infusion therapy being given. For non-viscous solutions use: Peripheral IV = 5 mL Midline or Central Line = 10 mL/lumen For viscous solutions (i.e. blood components, parenteral nutrition, contrast media, or after obtaining blood sample) use: Peripheral IV = 10 mL Midline or Central Line = 20 mL/lumen, Recovery(Cath) 0000 (Given - Provider: Madeline Allen RN)0826 (Given - Provider: Torin Rod RN)2021 (Given - Provider: Luis Eduardo Monroe RN) 0850 (Given - Provider: Lizbeth Brenner, RN)2100 (Due) ticagrelor (BRILINTA) tablet 90 mg 90 mg, Oral, 2 TIMES DAILY, First dose on Sat01/24/21 at 0000, ANTIPLATELET! 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 labor custodian)09 (Given - Provider: Torin Rod RN)2021 (Given - Provider: Luis Eduardo Monroe RN) 0851 (Given - Provider: Lizbeth Brenner, RN)2100 (Due) PRN Medication Order 01/23/2021 01/24/2021 01/25/2021 0.9 % sodium chloride infusion 25 mL, Intravenous, at 100 mL/hr, PRN, If patient receiving piggyback infusions without ordered maintenance IV fluids or with frequent/long duration piggyback infusions, Starting on Sat01/23/21 at 2327, Administer at the same rate as the piggyback being infused., Recovery(Cath) acetaminophen (TYLENOL) tablet 650 mg 650 mg, Oral, EVERY 4 HOURS PRN, Pain Mild (1-3), Fever, Fever >100.5 F (38 C), Starting on Sat01/23/21 at 2327, Maximum dose of acetaminophen is 4000 mg from all sources in 24 hours., Recovery(Cath) 0016 (Given - Provider: Madeline Allen RN)1220 (Given - Provider: Torin Rod, TROY)1609 (Given - Provider: Torin Rod RN) dextrose 5 % solution 100 mL/hr, Intravenous, at 100 mL/hr, PRN, Low blood sugar, Starting on Sat01/25/21 at 0940, Start infusion following administration of dextrose 50% or glucagon. dextrose 50 % IV solution 12.5 g, Intravenous, PRN, Low blood sugar, Blood glucose less than 70 mg/dL and patient NOT ALERT or NPO., Starting on Sat01/25/21 at 0940, If patient does not respond within 5 minutes, repeat dose x1. Start D5W at 100 mL/hour until ordering provider can be reached. Repeat blood glucose in 15 minutes. If blood glucose is less than 70 mg/dL, repeat treatment and recheck blood glucose in 15 minutes x2. If using Glucostabilizer, dose as instructed per system. glucagon (rDNA) injection 1 mg 1 mg, Intramuscular, PRN, Low blood sugar, Blood glucose less than 70 mg/dL and patient NOT ALERT or NPO and does not have IV access., Starting on Sat01/25/21 at 0940, After administration, attempt intravenous access and start D5W at 100 mL/hr. Repeat blood glucose in 15 minutes x2 and notify provider. glucose (GLUTOSE) 40 % oral gel 15 g 15 g, Oral, PRN, Low blood sugar, Starting on Sat01/25/21 at 0939, If blood glucose less than 50 mg/dL and patient ALERT and TOLERATING PO, give 2 tubes glucose gel. If blood glucose less than 70 mg/dL and patient ALERT and TOLERATING PO, give 1 tube glucose gel. Repeat blood glucose in 15 minutes. If blood glucose is less than 70 mg/dL, repeat treatment and recheck blood glucose in 15 minutes x2 and notify provider. sodium chloride flush 0.9 % injection 5-40 mL 5-40 mL, Intravenous, PRN, Line Care, Starting on Sat01/23/21 at 2327, For Line Patency: Peripheral IV = 5 mL; Midline or Central Line = 10 mL/lumen. If following IV push medication, administer flush at same rate as the IV push. Flush volume is determined by type of infusion therapy being given. For non-viscous solutions use: Peripheral IV = 5 mL Midline or Central Line = 10 mL/lumen For viscous solutions (i.e. blood components, parenteral nutrition, contrast media, or after obtaining blood sample) use: Peripheral IV = 10 mL Midline or Central Line = 20 mL/lumen, Recovery(Cath) Scheduled Medication Order 12/08/2021 12/09/2021 12/10/2021 aspirin chewable tablet 243 mg (COMPLETED) 243 mg, Oral, ONCE, 1 dose, On 12/09/21 at 0845 0847 (Given - Provider: Lexis Elaine RN) aspirin chewable tablet 81 mg 81 mg, Oral, DAILY, First dose on 12/10/21 at 0900, Until Discontinued 900 (Given - Provid er: Johanne Martinez RN) atorvastatin (LIPITOR) tablet 80 mg 80 mg, Oral, NIGHTLY, First dose on 12/09/21 at 2100, Until Discontinued 2032 (Given - Provider: Anju Flores, TROY) 2099 (Due) enoxaparin (LOVENOX) injection 40 mg 40 mg, SubCUTAneous, DAILY, First dose on 12/09/21 at 1315, Until Discontinued, Indication of Use: Prophylaxis-DVT/PE 1559 (Given - Provider: Chantell Sands RN) 1218 (Not Given - Provider: Johanne Martinez RN - Reason: Patient/family refused) insulin lispro (HUMALOG) injection vial 0-3 Units 0-3 Units, SubCUTAneous, NIGHTLY, First dose on 12/09/21 at 2100, Until Discontinued, If continuous tube feedings/TPN/NPO, give correction dose based on result, no reduction in dose. If eating or bolus tube feeding: Corrective Bedtime (50%) Low Dose Algorithm Glucose: Dose: 70-139 No Insulin 140-249 1 Unit 250-349 2 Units Over 350 3 Units 2033 (Given - Provider: Anju Flores, TROY) 2099 (Due) insulin lispro (HUMALOG) injection vial 0-6 Units 0-6 Units, SubCUTAneous, 3 TIMES DAILY WITH MEALS, First dose on 12/09/21 at 1700, Until Discontinued, Corrective Low Dose Algorithm Glucose: Dose: 70-139 No Insulin 140-199 1 Unit 200-249 2 Units 250-299 3 Units 300-349 4 Units 350-399 5 Units Over 399 6 Units 1830 (Given - Provider: Chantell Sands RN) 0851 (Given - Provider: Johanne Martinez, RN)1242 (Given - Provider: Johanne Martinez, RN)1700 (Due) lisinopril (PRINIVIL;ZESTRIL) tablet 5 mg 5 mg, Oral, DAILY, First dose on 12/09/21 at 1315, Until Discontinued 153 (Not Given - Provider: Chantell Sands RN - Reason: Patient took at home) 09 (Given - Provider: Johanne Martinez, RN) metFORMIN (GLUCOPHAGE) tablet 1,000 mg 1,000 mg, Oral, 2 TIMES DAILY WITH MEALS, First dose on 12/09/21 at 1700, Until Discontinued 183 (Given - Provider: Chantell Sands RN) 09 (Given - Provider: Johanne Martinez RN)170 (Due) metoprolol tartrate (LOPRESSOR) tablet 75 mg 75 mg, Oral, 2 TIMES DAILY, First dose on 12/09/21 at 1315, Until Discontinued 153 (Not Given - Provider: Chantell Sands RN - Reason: Patient took at home)2038 (Given - Provider: Anju Flores, TROY) 124 (Given - Provider: Johanne Martinez, TROY)2099 (Due) omega-3 acid ethyl esters (LOVAZA) capsule 2 g 2 g, Oral, 2 TIMES DAILY, First dose on 12/09/21 at 1315, Until Discontinued, Substituted for icosapent ethyl (VASCEPA) 153 (Not Given - Provider: Chantell Sands RN - Reason: Patient/family refused - Comment: Pt no longer takes)2032 (Given - Provider: Anju Flores, TROY) 09 (Given - Provider: Johanne Martinez RN)2099 (Due) sodium chloride flush 0.9 % injection 5-40 mL 5-40 mL, IntraVENous, EVERY 12 HOURS SCHEDULED (2 times per day), First dose on 12/09/21 at 2100, Until Discontinued, For Line Patency: Peripheral IV = 5 mL; Midline or Central Line = 10 mL/lumen. If following IV push medication, administer flush at same rate as the IV push. Flush volume is determined by type of infusion therapy being given. For non-viscous solutions use: Peripheral IV = 5 mL Midline or Central Line = 10 mL/lumen For viscous solutions (i.e. blood components, parenteral nutrition, contrast media, or after obtaining blood sample) use: Peripheral IV = 10 mL Midline or Central Line = 20 mL/lumen 2033 (Given - Provider: Anju Flores RN) 09 (Given - Provider: Johanne Martinez, RN)2100 (Due) ticagrelor (BRILINTA) tablet 90 mg 90 mg, Oral, 2 TIMES DAILY, First dose on 12/09/21 at 1315, Until Discontinued, ANTIPLATELET! 1540 (Not Given - Provider: Chantell Sands RN - Reason: Patient/family refused)2032 (Given - Provider: Anju Flores RN) 124 (Given - Provider: Johanne Martinez, RN)2100 (Due) PRN Medication Order 12/08/2021 12/09/2021 12/10/2021 0.9 % sodium chloride infusion IntraVENous, at 5-250 mL/hr, PRN, if patient receiving piggyback infusions and maintenance fluids are not ordered OR KVO fluids to protect IV site / prevent frequent line interruptions/ long duration, Starting on 12/09/21 at 1248, For piggyback infusion, administer at same rate as piggyback for a total of 25 mL. Enter 25 mL into dose field and piggyback rate into rate field of order. If piggyback is infusing at a rate less than 100 mL/hr, enter 25 mL into dose field and 100 mL/hr into rate field of order. For KVO fluids, enter rate of 20 mL/hr or less into rate field of order. acetaminophen (TYLENOL) suppository 650 mg(Linked Group 1) 650 mg, Rectal, EVERY 6 HOURS PRN, Starting on 12/09/21 at 1248, Until Discontinued, Pain Mild (1-3), Fever, For temp greater than 100.4 F (38 C), Administer if oral route cannot be used. 1834 (See Alternative - Provider: Chantell Sands RN) 0857 (See Alternative - Provider: Johanne Martinez, RN) acetaminophen (TYLENOL) tablet 650 mg(Linked Group 1) 650 mg, Oral, EVERY 6 HOURS PRN, Starting on 12/09/21 at 1248, Until Discontinued, Pain Mild (1-3), Fever, For temp greater than 100.4 F (38 C), Maximum dose of acetaminophen is 4000 mg from all sources in 24 hours. 1834 (Given - Provider: Chantell Sands RN) 0857 (Given - Provider: Johanne Martinez, TROY) dextrose 5 % solution 100 mL/hr, IntraVENous, PRN, Low blood sugar, Starting on 12/09/21 at 1511, Start infusion following administration of dextrose 50% or glucagon. dextrose 50 % IV solution 12.5 g, IntraVENous, PRN, Starting on 12/09/21 at 1511, Until Discontinued, Low blood sugar, Blood glucose less than 70 mg/dL and patient NOT ALERT or NPO., If patient does not respond within 5 minutes, repeat dose x1. Start D5W at 100 mL/hour until ordering provider can be reached. Repeat blood glucose in 15 minutes. If blood glucose is less than 70 mg/dL, repeat treatment and recheck blood glucose in 15 minutes x2. If using Glucostabilizer, dose as instructed per system. glucagon (rDNA) injection 1 mg 1 mg, IntraMUSCular, PRN, Starting on 12/09/21 at 1511, Until Discontinued, Low blood sugar, Blood glucose less than 70 mg/dL and patient NOT ALERT or NPO and does not have IV access., After administration, attempt intravenous access and start D5W at 100 mL/hr. Repeat blood glucose in 15 minutes x2 and notify provider. glucose (GLUTOSE) 40 % oral gel 15 g 15 g, Oral, PRN, Starting on 12/09/21 at 1511, Until Discontinued, Low blood sugar, If blood glucose less than 50 mg/dL and patient ALERT and TOLERATING PO, give 2 tubes glucose gel. If blood glucose less than 70 mg/dL and patient ALERT and TOLERATING PO, give 1 tube glucose gel. Repeat blood glucose in 15 minutes. If blood glucose is less than 70 mg/dL, repeat treatment and recheck blood glucose in 15 minutes x2 and notify provider. ondansetron (ZOFRAN) injection 4 mg(Linked Group 2) 4 mg, IntraVENous, EVERY 6 HOURS PRN, Starting on 12/09/21 at 1248, Until Discontinued, Nausea, Vomiting, Administer if oral route cannot be used. ondansetron (ZOFRAN-ODT) disintegrating tablet 4 mg(Linked Group 2) 4 mg, Oral, EVERY 8 HOURS PRN, Starting on 12/09/21 at 1248, Until Discontinued, Nausea, Vomiting polyethylene glycol (GLYCOLAX) packet 17 g 17 g, Oral, DAILY PRN, Starting on 12/09/21 at 1248, Until Discontinued, Constipation, First line therapy for constipation sodium chloride flush 0.9 % injection 5-40 mL 5-40 mL, IntraVENous, PRN, Starting on 12/09/21 at 1248, Until Discontinued, Line Care, After every IV line use, For Line Patency: Peripheral IV = 5 mL; Midline or Central Line = 10 mL/lumen. If following IV push medication, administer flush at same rate as the IV push. Flush volume is determined by type of infusion therapy being given. For non-viscous solutions use: Peripheral IV = 5 mL Midline or Central Line = 10 mL/lumen For viscous solutions (i.e. blood components, parenteral nutrition, contrast media, or after obtaining blood sample) use: Peripheral IV = 10 mL Midline or Central Line = 20 mL/lumen Linked Groups Order Group 1: acetaminophen (TYLENOL) tablet 650 mgJump to med 650 mg, Oral, EVERY 6 HOURS PRN, Starting on 12/09/21 at 1248, Until Discontinued, Pain Mild (1-3), Fever, For temp greater than 100.4 F (38 C)
Maximum dose of acetaminophen is 4000 mg from all sources in 24 hours.
Or acetaminophen (TYLENOL) suppository 650 mgJump to med 650 mg, Rectal, EVERY 6 HOURS PRN, Starting on 12/09/21 at 1248, Until Discontinued, Pain Mild (1-3), Fever, For temp greater than 100.4 F (38 C)
Administer if oral route cannot be used.
Group 2: ondansetron (ZOFRAN-ODT) disintegrating tablet 4 mgJump to med 4 mg, Oral, EVERY 8 HOURS PRN, Starting on 12/09/21 at 1248, Until Discontinued, Nausea, Vomiting Or ondansetron (ZOFRAN) injection 4 mgJump to med 4 mg, IntraVENous, EVERY 6 HOURS PRN, Starting on 12/09/21 at 1248, Until Discontinued, Nausea, Vomiting
Administer if oral route cannot be used.
Care Teams (unrecognized sec tion and content) Rolled Glass Crosscutter Relationship Specialty Start Date End Date Amanda Wan, DO [address] [place] [address] PCP - General Family Medicine 12/10/21 [employer] Crosscutter Relationship Specialty Start Date End Date Jeanine Rosa, CHIEF OPERATOR - SECURITY [place]ANCE [place] [address] PCP - General Family Nurse Practitioner 12/25/21 Rol[employer] Glass Crosscutter Relationship Specialty Start Date End Date Jeanine Rosa, CHIEF OPERATOR - SECURITY [employer]ANCE [place] [address] PCP - General Family Nurse Practitioner 12/25/21 Rolled Glass Crosscutter Relationship Specialty Start Date End Date Jeanine Rosa, CHIEF OPERATOR - SECURITY [place]ANCE [place] [address] PCP - General Family Nurse Practitioner 12/25/21 Rolled Glass Crosscutter Relationship Specialty Start Date End Date Jeanine Rosa CHIEF OPERATOR - SECURITY [place]ANCE [place] [address] PCP - General Family Nurse Practitioner 12/25/21 Rol[employer] Glass Crosscutter Relationship Specialty Start Date End Date Jeanine Rosa, CHIEF OPERATOR - SECURITY [place] [address] PCP - General Family Nurse Practitioner 12/25/21 (unrecognized sect ion and content) No Status Records FoundNo Status Records FoundNo Status Records Found INFORMATION SOURCE (unrecogn ized section and content) DATE CREATED AUTHOR 02/02/2023 [facility] DATE CREATED AUTHOR AUTHOR'S ORGANCESAR ATION 02/27/2023 [facility] DATE CREATED AUTHOR AUTHOR'S ORGANCESAR ATION [facility]/29/2023 [facility]ORDS PERTAINING TO PATIENTS WHO ARE OR HAVE BEEN ENROLLED IN A CHEMICAL DEPENDENCY/SUBSTANCEABUSE PROGRAM, SOME INFORMATION MAY BE OMITTED. This clinical summary was aggregated from multiple sources. Caution should be exercised in using it in the provision of clinical care. This summary normalizes information from multiple sources, and as a consequence, information in this document may materially change the coding, format and clinical context of patient data. In addition, data may be omitted in some cases. CLINICAL DECISIONS SHOULD BE BASED ON THE PRIMARY CLINICAL RECORDS. [facility] [employer] provides no warranty or guarantee of the accuracy or completeness of information in this document.
--- NOTE | 2024-11-04 17:40 | ED.GENADUL1 ---
Documented by User: Cici Massey 11/04/24 20:28 HPI HPI - General Adult General Chief complaint: Recheck/Abnormal Lab/Rx Stated complaint: HIGH BLOOD SUGAR Time Seen by Provider: 11/04/24 17:23 Source: patient Mode of arrival: walk-in History of Present Illness HPI narrative: 49 year old male presents to the ED for elevated blood sugar. 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 He ran out of his metformin this morning; he takes 500 mg BID. He has not had a pcp for 6-9 months; states he has been attempting to find a new pcp. He is also almost out of his metoprolol. He takes Lantus for his DM, but is unsure of the dose; he is not out of the medication. Denies fever, chills, TOMAS, dizziness, vision changes. Denies CP, SOB. He has a chronic cough. He quit smoking a few months ago. Denies N/V/D. Denies recent illness. Denies having any wounds. Related Data Home Medications ?Medication ?Instructions ?Recorded ?Confirmed metoprolol tartrate 100 mg tablet 100 mg PO Q12H 11/04/24 11/04/24 Previous Rx's ?Medication ?Instructions ?Recorded metformin 500 mg tablet 500 mg PO BID #60 tabs 11/04/24 metoprolol tartrate 100 mg tablet 100 mg PO BID #60 tabs 11/04/24 Allergies Allergy/AdvReac Type Severity Reaction Status Date / Time Penicillins AdvReac Mild Rash Verified 06/09/24 18:47 Opioid HPI Opioid Management Most Recent Opioid Data: No Data to Display Review of Systems ROS Constitutional Denies: fever or chills Eyes Denies: change in vision Ears, nose, mouth, and throat Denies: throat pain or neck pain Cardiovascular Denies: chest pain Respiratory Reports: cough; Denies: shortness of breath Gastrointestinal Denies: abdominal pain, nausea, vomiting or diarrhea Genitourinary Denies: painful urination Musculoskeletal Denies: back pain or neck pain Integumentary/Breast Denies: rash Neurological Denies: headache, numbness in extremities or dizziness PFSH PFSH Social History Little interest or pleasure in doing things: not at all Feeling down, depressed, or hopeless: not at all Exam Constitutional Vital Signs, click to edit/add: Last Vital Signs Temp 98.2 F 11/04/24 17:18 Pulse 85 11/04/24 17:18 Resp 18 11/04/24 17:18 BP 162/97 H 11/04/24 17:18 Pulse Ox 98 11/04/24 17:18 O2 Del Method Room Air 11/04/24 17:18 Common normals: no apparent distress and oriented x3 General appearance: cooperative HENMT Common normals: moist oral mucous membranes Eye Common normals: PERRL, conjunctivae normal and no scleral icterus Neck & C-Spine Common normals: supple Chest Chest: symmetrical chest wall rise Respiratory Common normals: normal respiratory effort Effort & inspection: able to speak in complete sentences and symmetric chest movement Auscultation: diminished lung sounds Cardio Common normals: regular rate and regular rhythm Neuro Common normals: oriented x3, moves all extremities and no focal motor deficits Sensorium/orientation: awake and alert Speech: speech normal Gait (neuro): normal gait Course Vital Signs Vital signs: Vital Signs Temperature 98.2 F 11/04/24 17:18 Pulse Rate 85 11/04/24 17:18 Respiratory Rate 18 11/04/24 17:18 Blood Pressure 162/97 H 11/04/24 17:18 Pulse Oximetry 98 11/04/24 17:18 Oxygen Delivery Method Room Air 11/04/24 17:18 Temperature 98.2 F 11/04/24 17:18 Pulse Rate 85 11/04/24 17:18 Respiratory Rate 18 11/04/24 17:18 Blood Pressure 162/97 H 11/04/24 17:18 Pulse Oximetry 98 11/04/24 17:18 Oxygen Delivery Method Room Air 11/04/24 17:18 Medical Decision Making MDM Narrative Medical decision making narrative: Blood glucose was 167. Findings were discussed with the patient. He requested refills of his metformin and metoprolol. He was given a list of primary care providers for follow up. Medical Records Medical records reviewed: Yes I reviewed the patient's medical records Lab Data Lab results reviewed: Yes I reviewed the patient's lab results Labs: Lab Results 11/04/24 Range/Units 17:54 WBC 8.8 (4.0-11.0) 10^3/uL RBC 4.99 (4.70-6.10) 10^6/uL Hgb 16.3 (14.0-18.0) g/dL Hct 45.7 (42.0-54.0) % MCV 91.6 (80.0-94.0) fL MCH 32.7 (25.9-34.0) pg MCHC 35.7 H (29.9-35.2) g/dL RDW 12.3 (11.0-15.0) % Plt Count 199 (150-450) 10^3/uL MPV 9.9 (9.5-13.5) fL Neut % (Auto) 61.3 (43.0-75.0) % Lymph % (Auto) 26.2 (20.5-60.0) % [place] % (Auto) 8.6 (1.7-12.0) % Eos % (Auto) 2.5 (0.9-7.0) % Baso % (Auto) 0.7 (0.2-2.0) % Neut # (Auto) 5.4 (1.4-6.5) 10^3/uL Lymph # (Auto) 2.3 (1.2-3.8) 10^3/uL [place] # (Auto) 0.8 (0.3-0.8) 10^3/uL Eos # (Auto) 0.2 (0.0-0.7) 10^3/uL Baso # (Auto) 0.1 (0.0-0.1) 10^3/uL Abs Immat Gran (auto) 0.06 H (0.00-0.03) 10^3/uL Imm/Tot Granulo (auto) 0.7 H (0.0-0.5) % Sodium 137 (136-145) mmol/L Potassium 3.6 (3.5-5.1) mmol/L Chloride 100 (98-107) mmol/L Carbon Dioxide 25.8 (21.0-32.0) mmol/L Anion Gap 14.8 BUN 16.0 (7.0-18.0) mg/dL Creatinine 0.92 (0.70-1.30) mg/dL Est GFR ( Amer) >60 (>=60 mL/min/1.73m^2) Est GFR (Non-Af Amer) >60 (>=60 mL/min/1.73m^2) BUN/Creatinine Ratio 17.4 Glucose 167 H (74-106) mg/dL Calcium 9.4 (8.5-10.1) mg/dL Imaging Data Chest x-ray: Attestation: I have reviewed the pertinent imaging results. Radiologist's impression: No acute cardiopulmonary process. Discharge Plan Discharge Chief Complaint: Recheck/Abnormal Lab/Rx Clinical Impression: Hyperglycemia, Medication refill Patient Disposition: Home, Self-Care Time of Disposition Decision: 18:31 Condition: Good Mode of Transportation: Private Vehicle Prescriptions / Home Meds: New metoprolol tartrate 100 mg tablet 100 mg PO BID Qty: 60 0RF metformin 500 mg tablet 500 mg PO BID Qty: 60 0RF No Action metoprolol tartrate 100 mg tablet 100 mg PO Q12H Print Language: Cuban Additional Instructions: Your blood sugar was 167 here in the ER today. Follow up with a primary care provider for a recheck, further evaluation and treatment. Referrals: Physician,Non-Staff, MD [Primary Care Provider] - 1 week Discharge Date/Time: 11/04/24 18:36 Documented by User: Casie Shultz DO 11/04/24 17:54 HPI HPI - General Adult General Chief complaint: Recheck/Abnormal Lab/Rx Stated complaint: HIGH BLOOD SUGAR Time Seen by Provider: 11/04/24 17:23 Related Data Home Medications ?Medication ?Instructions ?Recorded ?Confirmed metoprolol tartrate 100 mg tablet 100 mg PO Q12H 11/04/24 11/04/24 Previous Rx's ?Medication ?Instructions ?Recorded metformin 500 mg tablet 500 mg PO BID #60 tabs 11/04/24 metoprolol tartrate 100 mg tablet 100 mg PO BID #60 tabs 11/04/24 Allergies Allergy/AdvReac Type Severity Reaction Status Date / Time Penicillins AdvReac Mild Rash Verified 06/09/24 18:47 Opioid HPI Opioid Management Most Recent Opioid Data: No Data to Display PFSH PFSH Social History Little interest or pleasure in doing things: not at all Feeling down, depressed, or hopeless: not at all Exam Constitutional Vital Signs, click to edit/add: Last Vital Signs Temp 98.2 F 11/04/24 17:18 Pulse 85 11/04/24 17:18 Resp 18 11/04/24 17:18 BP 162/97 H 11/04/24 17:18 Pulse Ox 98 11/04/24 17:18 O2 Del Method Room Air 11/04/24 17:18 Course Vital Signs Vital signs: Vital Signs Temperature 98.2 F 11/04/24 17:18 Pulse Rate 85 11/04/24 17:18 Respiratory Rate 18 11/04/24 17:18 Blood Pressure 162/97 H 11/04/24 17:18 Pulse Oximetry 98 11/04/24 17:18 Oxygen Delivery Method Room Air 11/04/24 17:18 Temperature 98.2 F 11/04/24 17:18 Pulse Rate 85 11/04/24 17:18 Respiratory Rate 18 11/04/24 17:18 Blood Pressure 162/97 H 11/04/24 17:18 Pulse Oximetry 98 11/04/24 17:18 Oxygen Delivery Method Room Air 11/04/24 17:18 Medical Decision Making MDM Narrative Medical decision making narrative: Patient's labs are negative for acute findings Lab Data Labs: Lab Results 11/04/24 Range/Units 17:54 WBC 8.8 (4.0-11.0) 10^3/uL RBC 4.99 (4.70-6.10) 10^6/uL Hgb 16.3 (14.0-18.0) g/dL Hct 45.7 (42.0-54.0) % MCV 91.6 (80.0-94.0) fL MCH 32.7 (25.9-34.0) pg MCHC 35.7 H (29.9-35.2) g/dL RDW 12.3 (11.0-15.0) % Plt Count 199 (150-450) 10^3/uL MPV 9.9 (9.5-13.5) fL Neut % (Auto) 61.3 (43.0-75.0) % Lymph % (Auto) 26.2 (20.5-60.0) % [place] % (Auto) 8.6 (1.7-12.0) % Eos % (Auto) 2.5 (0.9-7.0) % Baso % (Auto) 0.7 (0.2-2.0) % Neut # (Auto) 5.4 (1.4-6.5) 10^3/uL Lymph # (Auto) 2.3 (1.2-3.8) 10^3/uL [place] # (Auto) 0.8 (0.3-0.8) 10^3/uL Eos # (Auto) 0.2 (0.0-0.7) 10^3/uL Baso # (Auto) 0.1 (0.0-0.1) 10^3/uL Abs Immat Gran (auto) 0.06 H (0.00-0.03) 10^3/uL Imm/Tot Granulo (auto) 0.7 H (0.0-0.5) % Sodium 137 (136-145) mmol/L Potassium 3.6 (3.5-5.1) mmol/L Chloride 100 (98-107) mmol/L Carbon Dioxide 25.8 (21.0-32.0) mmol/L Anion Gap 14.8 BUN 16.0 (7.0-18.0) mg/dL Creatinine 0.92 (0.70-1.30) mg/dL Est GFR ( Amer) >60 (>=60 mL/min/1.73m^2) Est GFR (Non-Af Amer) >60 (>=60 mL/min/1.73m^2) BUN/Creatinine Ratio 17.4 Glucose 167 H (74-106) mg/dL Calcium 9.4 (8.5-10.1) mg/dL Discharge Plan Discharge Chief Complaint: Recheck/Abnormal Lab/Rx Clinical Impression: Hyperglycemia, Medication refill Patient Disposition: Home, Self-Care Time of Disposition Decision: 18:31 Condition: Good Mode of Transportation: Private Vehicle Prescriptions / Home Meds: New metoprolol tartrate 100 mg tablet 100 mg PO BID Qty: 60 0RF metformin 500 mg tablet 500 mg PO BID Qty: 60 0RF No Action metoprolol tartrate 100 mg tablet 100 mg PO Q12H Print Language: Cuban Additional Instructions: Your blood sugar was 167 here in the ER today. Follow up with a primary care provider for a recheck, further evaluation and treatment. Referrals: Physician,Non-Staff, MD [Primary Care Provider] - 1 week Discharge Date/Time: 11/04/24 18:36
[2024-11-04] MEDS: METFORMIN HCL 500 MG TABLET 1000 MG PO (17:51)
[2024-11-04 18:01] LABS: Basophils Absolute Auto 0.1 10^3/uL (0.0-0.1); Basophils Percent Auto 0.7 % (0.2-2.0); Eosinophils Absolute Auto 0.2 10^3/uL (0.0-0.7); Eosinophils Percent Auto 2.5 % (0.9-7.0); Hematocrit 45.7 % (42.0-54.0); Hemoglobin 16.3 g/dL (14.0-18.0); Immature Granulocytes Abs Auto 0.06 10^3/uL (0.00-0.03); Immature Granulocytes Pct Auto 0.7 % (0.0-0.5); Lymphocytes Absolute Auto 2.3 10^3/uL (1.2-3.8); Lymphocytes Percent Auto 26.2 % (20.5-60.0); Mean Corpuscular HGB Conc 35.7 g/dL (29.9-35.2); Mean Corpuscular Hemoglobin 32.7 pg (25.9-34.0); Mean Corpuscular Volume 91.6 fL (80.0-94.0); Mean Platelet Volume 9.9 fL (9.5-13.5); Monocytes Absolute Auto 0.8 10^3/uL (0.3-0.8); Monocytes Percent Auto 8.6 % (1.7-12.0); Neutrophils Absolute Auto 5.4 10^3/uL (1.4-6.5); Neutrophils Percent Auto 61.3 % (43.0-75.0); Platelet Count 199 10^3/uL (150-450); Red Blood Count 4.99 10^6/uL (4.70-6.10); Red Cell Distribution Width 12.3 % (11.0-15.0); White Blood Count 8.8 10^3/uL (4.0-11.0)
[2024-11-04 18:16] LABS: Anion Gap 14.8; BUN Creatinine Ratio 17.4; Calcium 9.4 mg/dL (8.5-10.1); Carbon Dioxide 25.8 mmol/L (21.0-32.0); Chloride 100 mmol/L (98-107); Estimated GFR (African America >60 (>=60 mL/min/1.73m^2); Estimated GFR (Non-African Ame >60 (>=60 mL/min/1.73m^2); Glucose 167 mg/dL (74-106); Potassium 3.6 mmol/L (3.5-5.1); Sodium 137 mmol/L (136-145)
== END 2024-11-04 18:36 | disposition home or self-care (01) ==
PROVIDERS: Nurse Practitioner Family; Emergency Provider Emergency Medicine
DX: E11.65 Type 2 diabetes mellitus with hyperglycemia (principal); Z76.0 Encounter for issue of repeat prescription; Z79.84 Long term (current) use of oral hypoglycemic drugs; Z79.4 Long term (current) use of insulin; Z87.891 Personal history of nicotine dependence; R05.3 Chronic cough
CPT/HCPCS: 36415; 71046; 80048; 85025; 99285

== ENCOUNTER 2024-11-10 11:04 | Outpatient (OUT) | payer MEDICAID, SELFPAY ==
--- OUTSIDE RECORDS SUMMARY | 2024-11-10 11:28 | XMS_ITS | CCD ---
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 Name Role Phone Unavailable Primary Care Provider Unavailyann e Amanda Wan DO Primary Care Provider [phone] Grant ALUMINUM POURER - DEPUTY DIRECTORJeanine Primary Care Provider Grant ALUMINUM POURER - DEPUTY DIRECTORJeanine Primary Care Provider Grant DELGADO - DEPUTY DIRECTORJeanine Primary Care Provider VIVIENNE MUNSON Attending Unavailable VIVIENNE MUNSON Referring Unavailable JEANINE ROSA Primary Care Unavailable EJANINE ROSA Primary Care Unavailable VIVIENNE MUNSON Consulting [...] (antibiotic) (1 source) Penicillins Drug Allergy 01-23-2021 [facility] (6 sources) Penicillins Propensity to adverse reactions to drug 01-23-2021 [facility] Medications Current Medications Medication Drug [...] tablets 12 tablet 0 02/01/2023 02/01/2023 Discontinued [id number] 200 actuat albuterol 0.09 mg/actuat metered dose [...] tablet 0 01/17/2023 Active Continuous Blood Gluc Zone Maintenance Technician (FREESTYLE ZULEMA 2 READER) [facility] (5 sources) Start: 12-25-2021 Continuous Blood Gluc Zone Maintenance Technician (FREESTYLE ZULEMA 2 READER) [facility] Indications: Type 2 diabetes mellitus with hyperglycemia, without long-term current use of insulin (HCC) 1 Device by Does not apply route daily 1 each 1 12/25/2021 Active Continuous Blood Gluc Sensor (FREESTYLE ZULEMA 2 SENSOR) MISC (5 sources) Start: 12-25-2021 Continuous Blood Gluc Sensor (FREESTYLE ZULEMA 2 SENSOR) [facility] [place]ications: Type 2 diabetes mellitus with hyperglycemia, [...] tablet 3 01/26/2021 Active Start: 01-24-2021 lisinopril (ND INIVIL;ZESTRIL) tablet 5 mg metFORMIN hydrochloride 1000 [...] Taking at Discharge) omega-3 acid ethyl esters (fpc) 1000 mg oral capsule (1 source) Start: 12-09-2021 2 g, Oral, 2 TIMES DAILY, First dose on 12/09/21 at 1315, Until Discontinued Substituted for icosapent ethyl (VASCEPA) polyethylene glycol 3350 14307 mg powder for oral solution (1 source) [...] Coronary atherosclerosis; Translations: [Atherosclerotic heart disease of [place] coronary artery without angina pectoris] Onset: 03-13-2021 [...] Auto Differentialon 02-01-2023 Absolute Bands # 0.20 [facility] Bands 2 % 0 - 10 % [facility] Basophils (Bld) [#/Vol] 0.29 10*3/uL High [facility] Basophils/100 WBC (Bld) 3 % High 0 - 2 % [facility] Eosinophils (Bld) [#/Vol] 0.49 10*3/uL High [facility] Eosinophils/100 WBC (Bld) 5 % High 0 - 4 % [facility] Erythrocyte distribution width (RBC) [Ratio] 13.8 % 11.5 - 14.9 % [facility] Hematocrit (Bld) [Volume fraction] 31.6 % Low 41 - 53 % [facility] Hemoglobin (Bld) [Mass/Vol] 10.9 g/dL Low 13.5 - 17.5 g/dL [facility] Interpretation and review of laboratory results Abnormal [facility] Lymphocytes/100 WBC (Bld) 9 % Low 24 - 44 % [facility] Lymphocytes/100 WBC (Bld) 0.88 % Low [facility] MCH (RBC) [Entitic mass] 32.1 pg 26 - 34 pg [facility] MCHC (RBC) [Mass/Vol] 34.6 g/dL 31 - 37 g/dL [facility] MCV (RBC) [Entitic vol] 92.7 fL 80 - 100 fL [facility] Metamyelocytes 1 % High 0 [facility] Metamyelocytes Absolute 0.10 High 0 k/uL [facility] Monocytes/100 WBC (Bld) 12 % High 1 - 7 % [facility] Monocytes/100 WBC (Bld) 1.18 % [facility] Morphology Nathan (Bld) [Interp] 1+ POLYCHROMASIA [facility] Myelocytes 2 % High 0 [facility] Myelocytes Absolute 0.20 High 0 k/uL [facility] Neutrophils/100 WBC (Bld) 66 % 36 - 66 % [facility] Platelet mean volume (Bld) [Entitic vol] 6.8 fL 6.0 - 12.0 fL [facility] Platelets (Bld) [#/Vol] 419 10*3/uL [facility] RBC (Bld) [#/Vol] 3.40 10*6/uL Low 4.5 - 5.9 m/uL [facility] Segmented neutrophils/100 WBC (Bld) 6.46 % [facility] WBC other (Bld) [#/Vol] 9.8 [facility] CBC with Diffon 02-01-2023 Abs. Bands 0.20 k/uL Normal 0.0-1.0 [facility] Comment on above: Performed By: #### M G, LIP, CDP, PT, CP #### [facility] [address] [place] [address] [employer] Wiring Technician: Mick Carrera DO Abs. Basophil 0.29 k/uL High 0.0-0.2 [facility] Comment on above: Performed By: #### M G, LIP, CDP, PT, CP #### [facility] [place] [address] [employer] Wiring Technician: Mick Carrera DO Abs. [place] 0.10 k/uL High 0 [facility] Comment on above: Performed By: #### M G, LIP, CDP, PT, CP #### [facility] [address] [place] [address]. [place] [address] [employer] W[employer] Technician: Mick Carrera DO Abs. Myelocyte 0.20 k/uL High 0 [facility] Comment on above: Performed By: #### M G, LIP, CDP, PT, CP #### [facility] [address] [place] [address] [employer] W[employer] Technician: Mick Carrera DO Abs.Neutrophil (Seg) 6.46 k/uL Normal 1.3-9.1 [facility] Comment on above: Performed By: #### Jorge G, LIP, CDP, PT, CP #### [facility] [address] [place] [address]. [place] [address] [employer] W[employer] Technician: Mick Carrera DO Bands 2 % Normal 0-10 [facility] Comment on above: Performed By: #### Jorge G, LIP, CDP, PT, CP #### [facility] [address] [place] [address]. [place] [address] [employer] W[employer] Technician: Mick Carrera DO Basophils/100 WBC (Bld) 3 % High 0-2 [facility] Comment on above: Performed By: #### M G, LIP, CDP, PT, CP #### [facility] [address] [place] [address] [employer] Wiring Technician: Mick Carrera DO Eosinophils (Bld) [#/Vol] 0.49 10*3/uL High 0.0-0.4 [facility] Comment on above: Performed By: #### M G, LIP, CDP, PT, CP #### [facility] [address] [facility] [place] [address] [employer] W[employer] Technician: Mick Carrera DO Eosinophils/100 WBC (Bld) 5 % High 0-4 [facility] Comment on above: Performed By: #### M G, LIP, CDP, PT, CP #### [facility] [address] [facility] [place] [address] [employer] W[employer] Technician: Mick Carrera DO Lymphocytes (Bld) [#/Vol] 0.88 10*3/uL Low 1.0-4.8 [facility] Comment on above: Performed By: #### M G, LIP, CDP, PT, CP #### [facility] [place] [address] [employer] W[employer] Technician: Mick Carrera DO Lymphocytes/100 WBC (Bld) 9 % Low 24-44 [facility] Comment on above: Performed By: #### M G, LIP, CDP, PT, CP #### [facility] [place] [address] [employer] Wiring Technician: Mick Carrera DO Metamyelocytes/100 WBC (Bld) 1 % High 0 [facility] Comment on above: Performed By: #### M G, LIP, CDP, PT, CP #### [facility] [place] [address] [employer] W[employer] Technician: Mick Carrera DO Monocytes (Bld) [#/Vol] 1.18 10*3/uL Normal 0.1-1.3 [facility] Comment on above: Performed By: #### M G, LIP, CDP, PT, CP #### [facility] [place] [address] [employer] W[employer] Technician: Mick Carrera DO Monocytes/100 WBC (Bld) 12 % High 1-7 [facility] Comment on above: Performed By: #### Jorge G, LIP, CDP, PT, CP #### [facility] [address] [place] [address] [employer] W[employer] Technician: Mick Carrera DO Morphology Nathan (Bld) [Interp] 1+ Normal [facility] Comment on above: Result Comment: POLY CHROMASIA Performed By: #### M G, LIP, CDP, PT, CP #### [facility] [address] [place] [address] [employer] W[employer] Technician: Mick Carrera DO Myelocyte 2 % High 0 [facility] Comment on above: Performed By: #### Jorge G, LIP, CDP, PT, CP #### [facility] [address] [facility] [place] [address] [employer] W[employer] Technician: Mick Carrera DO Neutrophil (Seg) 66 % Normal 36-66 [facility] Comment on above: Performed By: #### Jorge Flores, LIP, CDP, PT, CP #### [facility] [address] [facility] [place] [address] [employer] W[employer] Technician: Mick Carrera DO Erythrocyte distribution width (RBC) [Ratio] 13.8 % Normal 11.5-14.9 [facility] Comment on above: Performed By: #### Jorge Flores, LIP, CDP, PT, CP #### [facility] [address] [facility] [place] [address] [employer] W[employer] Technician: Mick Carrera DO Hematocrit (Bld) [Volume fraction] 31.6 % Low 41-53 [facility] Comment on above: Performed By: #### Jorge G, LIP, CDP, PT, CP #### [facility] [place] [address] [employer] W[employer] Technician: Mick aCrrera DO Hemoglobin (Bld) [Mass/Vol] 10.9 g/dL Low 13.5-17.5 [facility] Comment on above: Performed By: #### M G, LIP, CDP, PT, CP #### [facility] [place] [address] [employer] W[employer] Technician: Mick Carrera DO MCH (RBC) [Entitic mass] 32.1 pg Normal 26-34 [facility] Comment on above: Performed By: #### M G, LIP, CDP, PT, CP #### [facility] [address] [place] [address] [employer] W[employer] Technician: Mick Carrera DO MCHC (RBC) [Mass/Vol] 34.6 g/dL Normal 31-37 [facility] Comment on above: Performed By: #### Jorge Flores, LIP, CDP, PT, CP #### [facility] [address] [place] [address] [employer] W[employer] Technician: Mick Carrera DO MCV (RBC) [Entitic vol] 92.7 fL Normal 80-100 [facility] Comment on above: Performed By: #### Jorge G, LIP, CDP, PT, CP #### [facility] [address] [place] [address] [employer] W[employer] Technician: Mick Carrera DO Platelet mean volume (Bld) [Entitic vol] 6.8 fL Normal 6.0-12.0 [facility] Comment on above: Performed By: #### Jorge G, LIP, CDP, PT, CP #### [facility] [address] [place] [address] [employer] W[employer] Technician: Mick Carrera DO Platelets (Bld) [#/Vol] 419 10*3/uL Normal 150-450 [facility] Comment on above: Performed By: #### Jorge G, LIP, CDP, PT, CP #### [facility] [address] [place] [address] [employer] W[employer] Technician: Mick Carrera DO RBC (Bld) [#/Vol] 3.40 10*6/uL Low 4.5-5.9 [facility] Comment on above: Performed By: #### M G, LIP, CDP, PT, CP #### [facility] [address] [facility] [place] [address] [employer] W[employer] Technician: Mick Carrera DO WBC (Bld) [#/Vol] 9.8 10*3/uL Normal 3.5-11.0 [facility] Comment on above: Performed By: #### M G, LIP, CDP, PT, CP #### [facility] [address] [facility] [place] [address] [employer] W[employer] Technician: Mick Carrera DO [facility] Albumin [Mass/Vol] 3.8 g/dL 3.5 - 5.2 g/dL [facility] ALP [Catalytic activity/Vol] 68 U/L 40 - 129 U/L [facility] ALT [Catalytic activity/Vol] 9 U/L 5 - 41 U/L [facility] Anion gap [Moles/Vol] 16 mmol/L 9 - 17 mmol/L [facility] AST [Catalytic activity/Vol] 13 U/L NINF - 40 U/L [facility] Bilirubin [Mass/Vol] 1.3 mg/dL High 0.3 - 1 .2 mg/dL [facility] Calcium [Mass/Vol] 9.7 mg/dL 8.6 - 10. 4 mg/dL [facility] Chloride [Moles/Vol] 96 mmol/L Low 98 - 10 7 mmol/L [facility] CO2 [Moles/Vol] 23 mmol/L 20 - 31 mmol/L [facility] Creatinine [Mass/Vol] 0.67 mg/dL Low 0.70 - 1.20 mg/dL [facility] GFR/1.73 sq M.predicted MDRD (S/P/Bld) [Vol rate/Area] - PINF [facility] Comment on above: These results [...] 173 mg/dL High 70 - 99 mg/dL [facility] Interpretation and review of laboratory results Abnormal [facility] [employer] Potassium [Moles/Vol] 4.0 mmol/L 3.7 - 5.3 mmol/L [facility] [employer] Protein [Mass/Vol] 7.7 g/dL 6.4 - 8.3 g/dL [facility] [employer] Sodium [Moles/Vol] 135 mmol/L 135 - 144 mmol/L [facility] [employer] Urea nitrogen [Mass/Vol] 18 mg/dL 6 - 20 mg/dL [facility] CT ABDOMEN PELVIS W WO [...] lower tho (more content not included)... Normal [facility] Comp Metabolic Profon 2022 Albumin [Mass/Vol] 3.8 g/dL Normal 3.5-5.2 [facility] Comment on above: Performed By: #### M Sandra, LIP, CDP, PT, CP #### [facility] [address] [facility] [place] [address] [employer] W[employer] Technician: Mick Carrera DO Alkaline Phos 68 U/L Normal 40-129 [facility] Comment on above: Performed By: #### M Sandra, LIP, CDP, PT, CP #### [facility] [address] [facility] [place] [address] [employer] W[employer] Technician: Mick Carrera DO ALT [Catalytic activity/Vol] 9 U/L Normal 5-41 [facility] Comment on above: Performed By: #### M Sandra, LIP, CDP, PT, CP #### [facility] [place] [address] [employer] W[employer] Technician: Mick Carrera DO Anion gap [Moles/Vol] 16 mmol/L Normal 9-17 [facility] Comment on above: Performed By: #### M G, LIP, CDP, PT, CP #### [facility] [address] [place] [address] [employer] W[employer] Technician: Mick Carrera DO AST [Catalytic activity/Vol] 13 U/L Normal <40 [facility] Comment on above: Performed By: #### Jorge Flores, LIP, CDP, PT, CP #### [facility] [address] [place] [address] [employer] W[employer] Technician: Mick Carrera DO Bilirubin [Mass/Vol] 1.3 mg/dL High 0.3-1.2 [facility] Comment on above: Performed By: #### Jorge G, LIP, CDP, PT, CP #### [facility] [place] [address] [employer] W[employer] Technician: Mick Carrera DO Calcium [Mass/Vol] 9.7 mg/dL Normal 8.6-10.4 [facility] Comment on above: Performed By: #### Jorge Flores, TAMMIE, CDP, PT, CP #### [facility] [place] [address] [employer] W[employer] Technician: Mick Carrera DO Chloride [Moles/Vol] 96 mmol/L Low 98-107 [facility] Comment on above: Performed By: #### Jorge Flores, LIP, CDP, PT, CP #### [facility] [address] [place] [address] [employer] W[employer] Technician: Mick Carrera DO CO2 [Moles/Vol] 23 mmol/L Normal 20-31 [facility] Comment on above: Performed By: #### Jorge G, LIP, CDP, PT, CP #### [facility] [address] [place] [address] [employer] W[employer] Technician: Mick Carrera DO Creatinine [Mass/Vol] 0.67 mg/dL Low 0.70-1.20 [facility] Comment on above: Performed By: #### M Sandra, TAMMIE, CDP, PT, CP #### [facility] [address] [facility] [place] [address] [employer] W[employer] Technician: Mick Carrera DO GFR/1.73 sq M.predicted among non-blacks MDRD (S/P/Bld) [Vol rate/Area] mL/min/{1.73_m2} Normal >60 [facility] Comment on above: Result Comment: These results [...] Jorge Flores, LIP, CDP, PT, CP #### [facility] [address] [facility] [place] [address] [employer] W[employer] Technician: Mick Carrera DO Glucose [Mass/Vol] 173 mg/dL High 70-99 [facility] Comment on above: Performed By: #### Jorge Flores, TAMMIE, CDP, PT, CP #### [facility] [place] [address] [employer] W[employer] Technician: Mick Carrera DO Potassium [Moles/Vol] 4.0 mmol/L Normal 3.7-5.3 [facility] Comment on above: Performed By: #### Jorge Flores, LIP, CDP, PT, CP #### [facility] [place] [address] [employer] W[employer] Technician: Mick Carrera DO Protein [Mass/Vol] 7.7 g/dL Normal 6.4-8.3 [facility] Comment on above: Performed By: #### Jorge Flores, LIP, CDP, PT, CP #### [facility] [address] [place] [address] [employer] W[employer] Technician: Mick Carrera DO Sodium [Moles/Vol] 135 mmol/L Normal 135-144 [facility] Comment on above: Performed By: #### M G, LIP, CDP, PT, CP #### [facility] [address] [place] [address] [employer] W[employer] Technician: Mick Carrera DO Urea nitrogen [Mass/Vol] 18 mg/dL Normal 6-20 [facility] Comment on above: Performed By: #### M G, LIP, CDP, PT, CP #### [facility] [address] [place] [address] [employer] W[employer] Technician: Mick Carrera DO Lipaseon 02-01-2023 Lipase [Catalytic activity/Vol] 48 U/L Normal 13-60 [facility] Comment on above: Performed By: #### M G, LIP, CDP, PT, CP #### [facility] [address] [place] [address] [employer] W[employer] Technician: Mick Carrera DO Lipase [Catalytic activity/Vol] 48 U/L 13 - 60 U/L [facility] Magnesiumon 02-01-2023 Magnesium [Mass/Vol] 2.0 mg/dL Normal 1.6-2.6 [facility] Comment on above: Performed By: #### M G, LIP, CDP, PT, CP #### [facility] [address] [place] [address] [employer] W[employer] Technician: Mick Carrera DO Magnesium [Mass/Vol] 2.0 mg/dL 1.6 - 2 .6 mg/dL [facility] No Panel Informationon 02-01 [facility] PTon 02-01-2023 INR Coag (PPP) [Relative time] 1.0 {INR} Normal [facility] Comment on above: Result Comment: Therapeutic Range: Moderate Anticoagulant Intensity: INR = 2.0-3.0 High Anticoagulant Intensity: INR = 2.5-3.5 Performed By: #### M G, LIP, CDP, PT, CP #### [facility] [address] [place] [address] [employer] W[employer] Technician: Mick Carrera DO PT Coag (PPP) [Time] 13.8 s Normal 11.8-14.6 [facility] Comment on above: Performed By: #### M G, LIP, CDP, PT, CP #### [facility] [address] [place] [address] [employer] W[employer] Technician: Mick Carrera DO Protime-INRon 8 INR Coag (PPP) [Relative time] 1.0 {INR} [facility] Comment on above: Therapeutic Range: Moderate Anticoagulant Intensity: INR = 2.0-3.0 High Anticoagulant Intensity: INR = 2.5-3.5 PT Coag (PPP) [Time] 13.8 s [facility] Urinalysis w/ Microon 2022 Bacteria None Normal NONE [facility] Comment on above: Performed By: #### H H #### [facility] [address] [place] [address] [employer] W[employer] Technician: Mick Carrera DO Bilirubin, SemiQt,Ur Negative Normal NEG [facility] Comment on above: Performed By: #### H H #### [facility] [address] [place] [address] [employer] W[employer] Technician: Mick Carrera DO Blood, Urine SMALL Abnormal NEG [facility] Comment on above: Performed By: #### H H #### [facility] [address] [place] [address] [employer] W[employer] Technician: Mick Carrera DO Casts 0 TO 2 Normal [facility] Comment on above: Performed By: #### H H #### [facility] [address] [place] [address] [employer] W[employer] Technician: Mick Carrera DO Clarity (U) Clear Normal CLEAR [facility] Comment on above: Performed By: #### H H #### [facility] [place] [address] [employer] W[employer] Technician: Mick Carrera DO Color (U) Yellow Normal YEL [facility] Comment on above: Performed By: #### H H #### [facility] [address] [place] [address] [employer] W[employer] Technician: Mick Carrera DO Epithelial cells LM Ql (Urine sed) 0 TO 2 Normal [facility] Comment on above: Performed By: #### H H #### [facility] [address] [place] [address] [employer] W[employer] Technician: Mick Carrera DO Glucose Ql (U) LARGE Abnormal NEG [facility] Comment on above: Performed By: #### H H #### [facility] [address] [place] [address] [employer] W[employer] Technician: Mick Carrera DO Ketones Ql (U) LARGE Abnormal NEG [facility] Comment on above: Performed By: #### H H #### [facility] [address] [place] [address] [employer] W[employer] Technician: Mick Carrera DO Leukocyte esterase Test strip Ql (U) Negative Normal NEG [facility] Comment on above: Performed By: #### H H #### [facility] [address] [place] [address] [employer] W[employer] Technician: Mick Carrera DO Nitrite,Ur Negative Normal NEG [facility] Comment on above: Performed By: #### H H #### [facility] [address] [place] [address] [employer] W[employer] Technician: Mick Carrera DO PH,Ur 5.0 Normal 5.0-8.0 [facility] Comment on above: Performed By: #### H H #### [facility] [place] [address] [employer] W[employer] Technician: Mick Carrera DO Protein Ql (U) 2+ Abnormal NEG [facility] Comment on above: Performed By: #### H H #### [facility] [address] [place] [address] [employer] W[employer] Technician: Mick Carrera DO Spec. [place],Ur 1.040 High 1.000-1.030 [facility] Comment on above: Performed By: #### H H #### [facility] [address] [place] [address] [employer] Wiring Technician: Mick Carrera DO Urine RBC's 0 TO 2 Normal [facility] Comment on above: Performed By: #### H H #### [facility] [place] [address] [employer] Wiring Technician: Mick Carrera DO Urine WBC's 0 TO 2 Normal [facility] Comment on above: Performed By: #### H H #### [facility] [place] [address] [employer] Wiring Technician: Mick Carrera DO Urobilinogen,Ur Normal Normal NORM [facility] Comment on above: Performed By: #### H H #### [facility] [place] [address] [employer] Wiring Technician: Mick Carrera DO Urinalysis with Microscopico n 01-31-2023 Bacteria LM Ql (Urine sed) None None [facility] Bilirubin Ql (U) Negative NEGATIVE [facility] Casts LM.LPF (Urine sed) [#/Area] 0 TO 2 /LPF [facility] Clarity (U) Clear Clear [facility] Color (U) Yellow Yellow [facility] Epithelial cells LM.HPF (Urine sed) [#/Area] 0 TO 2 /HPF [facility] Glucose Test strip (U) [Mass/Vol] LARGE Abnormal NEGATIVE [facility] Hemoglobin Auto test strip Ql (U) SMALL Abnormal NEGATIVE [facility] Interpretation and review of laboratory results Abnormal [facility] Ketones (U) [Mass/Vol] LARGE Abnormal NEGATIVE [facility] Leukocyte esterase Test strip Ql (U) Negative NEGATIVE [facility] Nitrite Ql (U) Negative NEGATIVE [facility] pH (U) 5.0 [pH] 5.0 - 8.0 [facility] Protein (U) [Mass/Vol] 2+ Abnormal NEGATIVE [facility] RBC LM.HPF (Urine sed) [#/Area] 0 TO 2 /HPF [facility] Specific gravity (U) [Rel density] 1.040 High 1.000 - 1.030 [facility] Urobilinogen Qn (U) Normal Normal [facility] S [facility] WBC LM.HPF (Urine sed) [#/Area] 0 TO 2 /HPF [facility] Basic Metabolic Profon 01-27 Anion gap [Moles/Vol] 11 mmol/L Normal 9-17 [facility] Comment on above: Performed By: #### B RENATA, #### [facility] [address] [place] [address] [employer] W[employer] Technician: Mick Carrera DO Calcium [Mass/Vol] 9.1 mg/dL Normal 8.6-10.4 [facility] Comment on above: Performed By: #### B RENATA, #### [facility] [address] [place], [place] [id number] [employer] W[employer] Technician: Mick Carrera DO Chloride [Moles/Vol] 97 mmol/L Low 98-107 [facility] Comment on above: Performed By: #### B RENATA, HH #### [facility] [address] [facility] [place] [address] [employer] W[employer] Technician: Mick Carrera DO CO2 [Moles/Vol] 28 mmol/L Normal 20-31 [facility] Comment on above: Performed By: #### B RENATA, HH #### [facility] [address] [facility] [place] [address] [employer] W[employer] Technician: Mick Carrera DO Creatinine [Mass/Vol] 0.87 mg/dL Normal 0.70-1.20 [facility] Comment on above: Performed By: #### B RENATA, HH #### [facility] [place] [address] [employer] Wiring Technician: Mick Carrera DO GFR/1.73 sq M.predicted among non-blacks MDRD (S/P/Bld) [Vol rate/Area] mL/min/{1.73_m2} Normal >60 [facility] Comment on above: Result Comment: These results [...] Performed By: #### B RENATA, HH #### [facility] [address] [facility] [place] [address] [employer] W[employer] Technician: Mick Carrera DO Glucose [Mass/Vol] 133 mg/dL High 70-99 [facility] Comment on above: Performed By: #### B RENATA, HH #### [facility] [address] [facility] [place] [address] [employer] W[employer] Technician: Mick Carrera DO Potassium [Moles/Vol] 4.1 mmol/L Normal 3.7-5.3 [facility] Comment on above: Performed By: #### Paddy YANEZ, HH #### [facility] [address] [place] [address] [employer] W[employer] Technician: Mick Carrera DO Sodium [Moles/Vol] 136 mmol/L Normal 135-144 [facility] Comment on above: Performed By: #### B RENATA, HH #### [facility] [address] [place] [address] [employer] W[employer] Technician: Mick Carrera DO Urea nitrogen [Mass/Vol] 10 mg/dL Normal 6-20 [facility] Comment on above: Performed By: #### Paddy YANEZ, TAYLOR #### [facility] [address] [place] [address] [employer] W[employer] Technician: Mick Carrera DO CBCon 01-27-2023 Erythrocyte distribution width (RBC) [Ratio] 13.7 % Normal 11.5-14.9 [facility] Comment on above: Performed By: #### Paddy YANEZ, TAYLOR #### [facility] [place] [address] [employer] W[employer] Technician: Mick Carrera DO Hematocrit (Bld) [Volume fraction] 25.3 % Low 41-53 [facility] Comment on above: Performed By: #### Paddy YANEZ, HH #### [facility] [address] [place] [address] [employer] W[employer] Technician: Mick Carrera DO Hemoglobin (Bld) [Mass/Vol] 8.5 g/dL Low 13.5-17.5 [facility] Comment on above: Performed By: #### Paddy YANEZ, TAYLOR #### [facility] [address] [place] [address] [employer] W[employer] Technician: Mick Carrera DO MCH (RBC) [Entitic mass] 31.1 pg Normal 26-34 [facility] Comment on above: Performed By: #### Paddy YANEZ, TAYLOR #### [facility] [address] [place] [address] [employer] W[employer] Technician: Mick Carrera DO MCHC (RBC) [Mass/Vol] 33.4 g/dL Normal 31-37 [facility] Comment on above: Performed By: #### Paddy YANEZ, HH #### [facility] [place] [address] [employer] W[employer] Technician: Mick Carrera DO MCV (RBC) [Entitic vol] 93.1 fL Normal 80-100 [facility] Comment on above: Performed By: #### Paddy YANEZ, TAYLOR #### [facility] [place] [address] [employer] W[employer] Technician: Mcik Carrera DO Platelet mean volume (Bld) [Entitic vol] 7.4 fL Normal 6.0-12.0 [facility] Comment on above: Performed By: #### Paddy YANEZ, TAYLOR #### [facility] [place] [address] [employer] W[employer] Technician: Mick Carrera DO Platelets (Bld) [#/Vol] 226 10*3/uL Normal 150-450 [facility] Comment on above: Performed By: #### Paddy YANEZ, TAYLOR #### [facility] [place] [address] [employer] W[employer] Technician: Mick Carrera DO RBC (Bld) [#/Vol] 2.72 10*6/uL Low 4.5-5.9 [facility] Comment on above: Performed By: #### Paddy YANEZ, TAYLOR #### [facility] [place] [address] [employer] W[employer] Technician: Mick Carrera DO WBC (Bld) [#/Vol] 9.3 10*3/uL Normal 3.5-11.0 [facility] Comment on above: Performed By: #### Paddy YANEZ, HH #### [facility] [address] [place] [address] [employer] W[employer] Technician: Mick Carrera DO Basic Metab w/rfx MGon 01-26 Anion gap [Moles/Vol] 10 mmol/L Normal 9-17 [facility] Comment on above: Performed By: #### Paddy YANEZ, HH #### [facility] [place] [address] [employer] W[employer] Technician: Mick Carrera DO Calcium [Mass/Vol] 8.6 mg/dL Normal 8.6-10.4 [facility] Comment on above: Performed By: #### Paddy YANEZ, HH #### [facility] [place] [address] [employer] W[employer] Technician: Mick Carrera DO Chloride [Moles/Vol] 96 mmol/L Low 98-107 [facility] Comment on above: Performed By: #### Paddy YANEZ, HH #### [facility] [address] [facility] [place] [address] [employer] W[employer] Technician: Mick Carrera DO CO2 [Moles/Vol] 29 mmol/L Normal 20-31 [facility] Comment on above: Performed By: #### Paddy YANEZ, HH #### [facility] [place] [address] [employer] W[employer] Technician: Mick Carrera DO Creatinine [Mass/Vol] 0.93 mg/dL Normal 0.70-1.20 [facility] Comment on above: Performed By: #### Paddy YANEZ, HH #### [facility] [place] [address] [employer] W[employer] Technician: Mick Carrera DO GFR/1.73 sq M.predicted among non-blacks MDRD (S/P/Bld) [Vol rate/Area] mL/min/{1.73_m2} Normal >60 [facility] Comment on above: Result Comment: These results [...] Performed By: #### B RENATA, HH #### [facility] [address] [place] [address] [employer] W[employer] Technician: Mick Carrera DO Glucose [Mass/Vol] 188 mg/dL High 70-99 [facility] Comment on above: Performed By: #### Paddy YANEZ, HH #### [facility] [address] [facility] [place] [address] [employer] W[employer] Technician: Mick Carrera DO Potassium [Moles/Vol] 3.9 mmol/L Normal 3.7-5.3 [facility] Comment on above: Performed By: #### Paddy YANEZ, HH #### [facility] [address] [facility] [place] [address] [employer] W[employer] Technician: Mick Carrera DO Sodium [Moles/Vol] 135 mmol/L Normal 135-144 [facility] Comment on above: Performed By: #### Paddy YANEZ, HH #### [facility] [address] [facility] [place] [address] [employer] W[employer] Technician: Mick Carrera DO Urea nitrogen [Mass/Vol] 10 mg/dL Normal 6-20 [facility] Comment on above: Performed By: #### Paddy YANEZ, HH #### [facility] [address] [place] [address] [employer] W[employer] Technician: Mick Carrera DO CBC with Diffon 01-26-2023 Abs. Basophil 0.00 k/uL Normal 0.0-0.2 [facility] Comment on above: Performed By: #### TAYLOR Thomason MP #### [facility] [place] [address] [employer] W[employer] Technician: Mick Carrera DO Abs.Neutrophil (Seg) 5.70 k/uL Normal 1.3-9.1 [facility] Comment on above: Performed By: #### Paddy YANEZ, TAYLOR #### [facility] [place] [address] [employer] W[employer] Technician: Mick Carrera DO Basophils/100 WBC (Bld) 1 % Normal 0-2 [facility] Comment on above: Performed By: #### Paddy YANEZ, TAYLOR #### [facility] [place] [address] [employer] W[employer] Technician: Mick Carrera DO Eosinophils (Bld) [#/Vol] 0.10 10*3/uL Normal 0.0-0.4 [facility] Comment on above: Performed By: #### Paddy YANEZ, TAYLOR #### [facility] [address] [place] [address] [employer] W[employer] Technician: Mick Carrera DO Eosinophils/100 WBC (Bld) 1 % Normal 0-4 [facility] Comment on above: Performed By: #### Paddy YANEZ, TAYLOR #### [facility] [place] [address] [employer] W[employer] Technician: Mick Carrera DO Erythrocyte distribution width (RBC) [Ratio] 14.1 % Normal 11.5-14.9 [facility] Comment on above: Performed By: #### Paddy YANEZ, TAYLOR #### [facility] [address] [place] [address] [employer] W[employer] Technician: Mick Carrera DO Hematocrit (Bld) [Volume fraction] 25.8 % Low 41-53 [facility] Comment on above: Performed By: #### Paddy YANEZ, HH #### [facility] [address] [facility] [place] [address] [employer] W[employer] Technician: Mick Carrera DO Hemoglobin (Bld) [Mass/Vol] 9.0 g/dL Low 13.5-17.5 [facility] Comment on above: Performed By: #### Paddy YANEZ, HH #### [facility] [place] [address] [employer] W[employer] Technician: Mick Carrera DO Lymphocytes (Bld) [#/Vol] 1.70 10*3/uL Normal 1.0-4.8 [facility] Comment on above: Performed By: #### Paddy YANEZ, TAYLOR #### [facility] [place] [address] [employer] W[employer] Technician: Mick Carrera DO Lymphocytes/100 WBC (Bld) 20 % Low 24-44 [facility] Comment on above: Performed By: #### Paddy YANEZ, TAYLOR #### [facility] [address] [place] [address] [employer] W[employer] Technician: Mick Carrera DO MCH (RBC) [Entitic mass] 32.2 pg Normal 26-34 [facility] Comment on above: Performed By: #### Paddy YANEZ, HH #### [facility] [place] [address] [employer] W[employer] Technician: Mick Carrera DO MCHC (RBC) [Mass/Vol] 34.9 g/dL Normal 31-37 [facility] Comment on above: Performed By: #### Paddy YANEZ, TAYLOR #### [facility] [address] [place], [place] [address]. [place] [address] [employer] W[employer] Technician: Mick Carrera DO MCV (RBC) [Entitic vol] 92.3 fL Normal 80-100 [facility] Comment on above: Performed By: #### Paddy YANEZ, HH #### [facility] [place] [address] [employer] W[employer] Technician: Mick Carrera DO Monocytes (Bld) [#/Vol] 0.80 10*3/uL Normal 0.1-1.3 [facility] Comment on above: Performed By: #### B RENATA, HH #### [facility] [address] [place] [address] [employer] W[employer] Technician: Mick Carrera DO Monocytes/100 WBC (Bld) 10 % High 1-7 [facility] Comment on above: Performed By: #### B RENATA, HH #### [facility] [address] [place] [address] [employer] W[employer] Technician: Mick Carrera DO Neutrophil (Seg) 68 % High 36-66 [facility] Comment on above: Performed By: #### Paddy YANEZ, HH #### [facility] [address] [place] [address]. [place] [address] [employer] W[employer] Technician: Mick Carrera DO Platelet mean volume (Bld) [Entitic vol] 7.3 fL Normal 6.0-12.0 [facility] Comment on above: Performed By: #### B RENATA, HH #### [facility] [address] [place] [address] [employer] W[employer] Technician: Mick Carrera DO Platelets (Bld) [#/Vol] 189 10*3/uL Normal 150-450 [facility] Comment on above: Performed By: #### B RENATA, HH #### [facility] [address] [place] [address] [employer] W[employer] Technician: Mick Carrera DO RBC (Bld) [#/Vol] 2.79 10*6/uL Low 4.5-5.9 [facility] Comment on above: Performed By: #### B RENATA, HH #### [facility] [address] [place] [address] [employer] W[employer] Technician: Mick Carrera DO WBC (Bld) [#/Vol] 8.4 10*3/uL Normal 3.5-11.0 [facility] Comment on above: Performed By: #### Paddy YANEZ, HH #### [facility] [address] [place] [address] [employer] W[employer] Technician: Mick Carrera DO Hgb/Hcton 01-26-2023 Hematocrit (Bld) [Volume fraction] 26.3 % Low 41-53 [facility] Comment on above: Performed By: #### Paddy YANEZ, HH #### [facility] [address] [facility] [place] [address] [employer] W[employer] Technician: Mick Carrera DO Hemoglobin (Bld) [Mass/Vol] 9.4 g/dL Low 13.5-17.5 [facility] Comment on above: Performed By: #### B RENATA, HH #### [facility] [address] [place] [facility] [place] [address] [employer] W[employer] Technician: Mick Carrera DO Hematocrit (Bld) [Volume fraction] 21.7 % Low 41-53 [facility] Comment on above: Performed By: #### T PLT #### [facility] [address] [place] [address] [employer] W[employer] Technician: Mick Carrera DO Hemoglobin (Bld) [Mass/Vol] 7.2 g/dL Low 13.5-17.5 [facility] Comment on above: Performed By: #### T PLT #### [facility] [address] [place] [address] [employer] W[employer] Technician: Mick Carrera DO Type + Screenon 01-26-2023 Type + Screen Sample Expiration 01/26/2023,2359 Arm Band Number [id number] ABO/Rh(D) A POSITIVE Antibody Screen NEGATIVE Blood Bank Comment PT'S ABORH CONFIRMED A POS:404 Unit Number [id number] Blood Component Type Leukocyte Reduced Red Cell Unit Division 00 Status of Unit TRANSFUSED Transfusion Status OK TO TRANSFUSE Crossmatch Result COMPATIBLE Unit Number [id number] Blood Component Type Leukocyte Reduced Red Cell Unit Division 00 Status of Unit TRANSFUSED Transfusion Status OK TO TRANSFUSE Crossmatch Result COMPATIBLE Normal [facility] Comment on above: Performed By: #### A LCB #### [facility] [address] [place] [address] [employer] W[employer] Technician: Mick Carrera DO Basic Metab w/rfx MGon 01-25 Potassium [Moles/Vol] 4.2 mmol/L Normal 3.7-5.3 [facility] Comment on above: Performed By: #### A LCB #### [facility] [place] [address] [employer] W[employer] Technician: Mick Carrera DO Anion gap [Moles/Vol] 10 mmol/L Normal 9-17 [facility] Comment on above: Performed By: #### A LCB #### [facility] [place] [address] [employer] W[employer] Technician: Mick Carrera DO Calcium [Mass/Vol] 8.6 mg/dL Normal 8.6-10.4 [facility] Comment on above: Performed By: #### A LCB #### [facility] [place] [address] [employer] W[employer] Technician: Mick Carrera DO Chloride [Moles/Vol] 100 mmol/L Normal 98-107 [facility] Comment on above: Performed By: #### A LCB #### [facility] [address] [facility] [place] [address] [employer] W[employer] Technician: Mick Carrera DO CO2 [Moles/Vol] 27 mmol/L Normal 20-31 [facility] Comment on above: Performed By: #### A LCB #### [facility] [address] [facility] [place] [address] [employer] W[employer] Technician: Mick Carrera DO Creatinine [Mass/Vol] 1.36 mg/dL High 0.70-1.20 [facility] Comment on above: Performed By: #### A LCB #### [facility] [address] [facility] [place] [address] [employer] W[employer] Technician: Mick Carrera DO GFR/1.73 sq M.predicted among non-blacks MDRD (S/P/Bld) [Vol rate/Area] mL/min/{1.73_m2} Normal >60 [facility] Comment on above: Result Comment: These results [...] secretion. Performed By: #### A LCB #### [facility] [address] [facility] [place] [address] [employer] W[employer] Technician: Mick Carrera DO Glucose [Mass/Vol] 197 mg/dL High 70-99 [facility] Comment on above: Performed By: #### A LCB #### [facility] [address] [facility] [place] [address] [employer] W[employer] Technician: Mick Carrera DO Sodium [Moles/Vol] 137 mmol/L Normal 135-144 [facility] Comment on above: Performed By: #### A LCB #### [facility] [place] [address] [employer] W[employer] Technician: Mick Carrera DO Urea nitrogen [Mass/Vol] 16 mg/dL Normal 6-20 [facility] Comment on above: Performed By: #### A LCB #### [facility] [address] [place] [address] [employer] W[employer] Technician: Mick Carrera DO CBC with Diffon 01-25-2023 Abs. Basophil 0.10 k/uL Normal 0.0-0.2 [facility] Comment on above: Performed By: #### A LCB #### [facility] [address] [place] [address] [employer] W[employer] Technician: Mick Carrera DO Abs.Neutrophil (Seg) 8.50 k/uL Normal 1.3-9.1 [facility] Comment on above: Performed By: #### A LCB #### [facility] [address] [place] [address] [employer] W[employer] Technician: Mick Carrera DO Basophils/100 WBC (Bld) 0 % Normal 0-2 [facility] Comment on above: Performed By: #### A LCB #### [facility] [address] [place] [address] [employer] W[employer] Technician: Mick Carerra DO Eosinophils (Bld) [#/Vol] 0.00 10*3/uL Normal 0.0-0.4 [facility] Comment on above: Performed By: #### A LCB #### [facility] [address] [place] [address] [employer] W[employer] Technician: Mick Carrera DO Eosinophils/100 WBC (Bld) 0 % Normal 0-4 [facility] Comment on above: Performed By: #### A LCB #### [facility] [address] [place] [address] [employer] W[employer] Technician: Mick Carrera DO Erythrocyte distribution width (RBC) [Ratio] 13.0 % Normal 11.5-14.9 [facility] Comment on above: Performed By: #### A LCB #### [facility] [address] [place] [address] [employer] W[employer] Technician: Mick Carrera DO Hematocrit (Bld) [Volume fraction] 23.1 % Low 41-53 [facility] Comment on above: Performed By: #### A LCB #### [facility] [address] [place] [address] [employer] W[employer] Technician: Mick Carrera DO Hemoglobin (Bld) [Mass/Vol] 7.8 g/dL Low 13.5-17.5 [facility] Comment on above: Performed By: #### A LCB #### [facility] [address] [place] [address] [employer] Technician: Mick Carrera DO Lymphocytes (Bld) [#/Vol] 1.90 10*3/uL Normal 1.0-4.8 [facility] Comment on above: Performed By: #### A LCB #### [facility] [address] [place] [address] [employer] Wiring Technician: Mick Carrera DO Lymphocytes/100 WBC (Bld) 17 % Low 24-44 [facility] Comment on above: Performed By: #### A LCB #### [facility] [address] [place] [address] [employer] Wiring Technician: Mick Carrera DO MCH (RBC) [Entitic mass] 32.0 pg Normal 26-34 [facility] Comment on above: Performed By: #### A LCB #### [facility] [address] [place] [address] [employer] Wiring Technician: Mick Carrera DO MCHC (RBC) [Mass/Vol] 33.9 g/dL Normal 31-37 [facility] Comment on above: Performed By: #### A LCB #### [facility] [address] [place] [address] [employer] W[employer] Technician: Mick Carrera DO MCV (RBC) [Entitic vol] 94.3 fL Normal 80-100 [facility] Comment on above: Performed By: #### A LCB #### [facility] [place] [address] [employer] Wiring Technician: Mick Carrera DO Monocytes (Bld) [#/Vol] 1.00 10*3/uL Normal 0.1-1.3 [facility] Comment on above: Performed By: #### A LCB #### [facility] [address] [facility] [place] [address] [employer] Wiring Technician: Mick Carrera DO Monocytes/100 WBC (Bld) 9 % High 1-7 [facility] Comment on above: Performed By: #### A LCB #### [facility] [place] [address] [employer] Wiring Technician: Mick Carrera DO Neutrophil (Seg) 74 % High 36-66 [facility] Comment on above: Performed By: #### A LCB #### [facility] [place] [address] [employer] W[employer] Technician: Mick Carrera DO Platelet mean volume (Bld) [Entitic vol] 7.6 fL Normal 6.0-12.0 [facility] Comment on above: Performed By: #### A LCB #### [facility] [place] [address] [employer] Wiring Technician: Mick Carrera DO Platelets (Bld) [#/Vol] 227 10*3/uL Normal 150-450 [facility] Comment on above: Performed By: #### A LCB #### [facility] [address] [place] [address] [employer] W[employer] Technician: Mick Carrera DO RBC (Bld) [#/Vol] 2.46 10*6/uL Low 4.5-5.9 [facility] Comment on above: Performed By: #### A LCB #### [facility] [address] [place] [address]. [place] [address] [employer] W[employer] Technician: Mick Carrera DO WBC (Bld) [#/Vol] 11.5 10*3/uL High 3.5-11.0 [facility] Comment on above: Performed By: #### A LCB #### [facility] [address] [facility] [place] [address] [employer] Wiring Technician: Mick Carrera DO Hgb/Hcton 01-25-2023 Hematocrit (Bld) [Volume fraction] 23.1 % Low 41-53 [facility] Comment on above: Performed By: #### H H #### [facility] [address] [place] [address]. [place] [address] [employer] W[employer] Technician: Mick Carrera DO Hemoglobin (Bld) [Mass/Vol] 7.9 g/dL Low 13.5-17.5 [facility] Comment on above: Performed By: #### H H #### [facility] [address] [employer] Wiring Technician: Mick Carrera DO Hematocrit (Bld) [Volume fraction] 24.7 % Low 41-53 [facility] Comment on above: Performed By: #### T PLT #### [facility] [address] [place] [address] [employer] W[employer] Technician: Mick Carrera DO Hemoglobin (Bld) [Mass/Vol] 8.3 g/dL Low 13.5-17.5 [facility] Comment on above: Performed By: #### T PLT #### [facility] [address] [place] [address] [employer] W[employer] Technician: Mick Carrera DO Hematocrit (Bld) [Volume fraction] 25.7 % Low 41-53 [facility] Comment on above: Performed By: #### H H #### [facility] [address] [place] [address] [employer] Wiring Technician: Mick Carrera DO Hemoglobin (Bld) [Mass/Vol] 8.7 g/dL Low 13.5-17.5 [facility] Comment on above: Performed By: #### H H #### [facility] [address] [place] [address] [employer] Wiring Technician: Mick Carrera DO Platelets,Transfuseon 2022 Platelets,Transfuse Unit Number [id number] Blood Component Type PthRePlt PAS Unit Division 00 Status of Unit TRANSFUSED Transfusion Status OK TO TRANSFUSE Normal [facility] Comment on above: Performed By: #### T PLT #### [facility] [address] [place] [address] [employer] Wiring Technician: Mick Carrera DO Basic Metab w/rfx MGon 01-24 Anion gap [Moles/Vol] 13 mmol/L Normal 9-17 [facility] Comment on above: Performed By: #### H H #### [facility] [address] [place] [address] [employer] W[employer] Technician: Mick Carrera DO Sodium [Moles/Vol] 137 mmol/L Normal 135-144 [facility] Comment on above: Performed By: #### H H #### [facility] [address] [place] [address] [employer] W[employer] Technician: Mick Carrera DO Calcium [Mass/Vol] 9.0 mg/dL Normal 8.6-10.4 [facility] Comment on above: Performed By: #### H H #### [facility] [place] [address] [employer] W[employer] Technician: Mick Carrera DO Chloride [Moles/Vol] 102 mmol/L Normal 98-107 [facility] Comment on above: Performed By: #### H H #### [facility] [place] [address] [employer] W[employer] Technician: Mick Carrera DO CO2 [Moles/Vol] 22 mmol/L Normal 20-31 [facility] Comment on above: Performed By: #### H H #### [facility] [address] [facility] [place] [address] [employer] W[employer] Technician: Mick Carrera DO Creatinine [Mass/Vol] 1.24 mg/dL High 0.70-1.20 [facility] Comment on above: Performed By: #### H H #### [facility] [place] [address] [employer] W[employer] Technician: Mick Carrera DO GFR/1.73 sq M.predicted among non-blacks MDRD (S/P/Bld) [Vol rate/Area] mL/min/{1.73_m2} Normal >60 [facility] Comment on above: Result Comment: These results [...] secretion. Performed By: #### H H #### [facility] [address] [place] [address] [employer] W[employer] Technician: Mick Carrera DO Glucose [Mass/Vol] 242 mg/dL High 70-99 [facility] Comment on above: Performed By: #### H H #### [facility] [place] [address] [employer] W[employer] Technician: Mick Carrera DO Potassium [Moles/Vol] 4.6 mmol/L Normal 3.7-5.3 [facility] Comment on above: Performed By: #### H H #### [facility] [address] [place] [address] [employer] W[employer] Technician: Mick Carrera DO Urea nitrogen [Mass/Vol] 14 mg/dL Normal 6-20 [facility] Comment on above: Performed By: #### H H #### [facility] [address] [facility] [place] [address] [employer] W[employer] Technician: Mick Carrera DO Basic Metabolic Profon 01-24 Anion gap [Moles/Vol] 16 mmol/L Normal 9-17 [facility] Comment on above: Performed By: #### B TAYLOR YANEZ #### [facility] [address] [facility] [place] [address] [employer] W[employer] Technician: Mick Carrera DO Calcium [Mass/Vol] 8.8 mg/dL Normal 8.6-10.4 [facility] Comment on above: Performed By: #### B TAYLOR YANEZ #### [facility] [place] [address] [employer] W[employer] Technician: Mick Carrera DO Chloride [Moles/Vol] 102 mmol/L Normal 98-107 [facility] Comment on above: Performed By: #### B RENATA, TAYLOR #### [facility] [address] [facility] [place] [address] [employer] W[employer] Technician: Mick Carrera DO CO2 [Moles/Vol] 21 mmol/L Normal 20-31 [facility] Comment on above: Performed By: #### B RENATA, HH #### [facility] [address] [facility] [place] [address] [employer] W[employer] Technician: Mick Carrera DO Creatinine [Mass/Vol] 1.66 mg/dL High 0.70-1.20 [facility] Comment on above: Performed By: #### B RENATA, HH #### [facility] [place] [address] [employer] W[employer] Technician: Mick Carrera DO GFR/1.73 sq M.predicted among non-blacks MDRD (S/P/Bld) [Vol rate/Area] 50 mL/min/{1.73_m2} Low >60 [facility] Comment on above: Result Comment: These results [...] Performed By: #### B RENATA, HH #### [facility] [address] [facility] [place] [address] [employer] W[employer] Technician: Mick Carrera DO Glucose [Mass/Vol] 282 mg/dL High 70-99 [facility] Comment on above: Performed By: #### B RENATA, TAYLOR #### [facility] [address] [facility] [place] [address] [employer] W[employer] Technician: Mick Carrera DO Potassium [Moles/Vol] 4.5 mmol/L Normal 3.7-5.3 [facility] Comment on above: Performed By: #### B TAYLOR YANEZ #### [facility] [address] [place] [address]. [place] [address] [employer] W[employer] Technician: Mick Carrera DO Sodium [Moles/Vol] 139 mmol/L Normal 135-144 [facility] Comment on above: Performed By: #### B RENATA, TAYLOR #### [facility] [address] [place] [address]. [place] [address] [employer] W[employer] Technician: Mick Carrera DO Urea nitrogen [Mass/Vol] 19 mg/dL Normal 6-20 [facility] Comment on above: Performed By: #### B TAYLOR YANEZ #### [facility] [address] [place] [address]. [place] [address] [employer] W[employer] Technician: Mick Carrera DO CBC with Diffon 01-24-2023 Abs. Basophil 0.00 k/uL Normal 0.0-0.2 [facility] Comment on above: Performed By: #### H H #### [facility] [address] [place] [address] [employer] W[employer] Technician: Mick Carrera DO Abs.Neutrophil (Seg) 12.00 k/uL High 1.3-9.1 [facility] Comment on above: Performed By: #### H H #### [facility] [address] [place] [address]. [place] [address] [employer] W[employer] Technician: Mick Carrera DO Basophils/100 WBC (Bld) 0 % Normal 0-2 [facility] Comment on above: Performed By: #### H H #### [facility] [address] [place] [address] [employer] W[employer] Technician: Mick Carrera DO Eosinophils (Bld) [#/Vol] 0.00 10*3/uL Normal 0.0-0.4 [facility] Comment on above: Performed By: #### H H #### [facility] [address] [place] [address] [employer] W[employer] Technician: Mick Carrera DO Eosinophils/100 WBC (Bld) 0 % Normal 0-4 [facility] Comment on above: Performed By: #### H H #### [facility] [address] [place] [address] [employer] W[employer] Technician: Mick Carrera DO Erythrocyte distribution width (RBC) [Ratio] 13.0 % Normal 11.5-14.9 [facility] Comment on above: Performed By: #### H H #### [facility] [address] [place] [address] [employer] W[employer] Technician: Mick Carrera DO Hematocrit (Bld) [Volume fraction] 37.9 % Low 41-53 [facility] Comment on above: Performed By: #### H H #### [facility] [address] [place] [address] [employer] W[employer] Technician: Mick Carrera DO Hemoglobin (Bld) [Mass/Vol] 13.2 g/dL Low 13.5-17.5 [facility] Comment on above: Performed By: #### H H #### [facility] [address] [facility] [place] [address] [employer] W[employer] Technician: Mick Carrera DO Lymphocytes (Bld) [#/Vol] 0.80 10*3/uL Low 1.0-4.8 [facility] Comment on above: Performed By: #### H H #### [facility] [address] [place] [address] [employer] W[employer] Technician: Mick Carrera DO Lymphocytes/100 WBC (Bld) 6 % Low 24-44 [facility] Comment on above: Performed By: #### H H #### [facility] [place] [address] [employer] W[employer] Technician: Mick Carrera DO MCH (RBC) [Entitic mass] 32.2 pg Normal 26-34 [facility] Comment on above: Performed By: #### H H #### [facility] [place] [address] [employer] W[employer] Technician: Mick Carrera DO MCHC (RBC) [Mass/Vol] 34.7 g/dL Normal 31-37 [facility] Comment on above: Performed By: #### H H #### [facility] [address] [place] [address] [employer] W[employer] Technician: Mick Carrera DO MCV (RBC) [Entitic vol] 92.6 fL Normal 80-100 [facility] Comment on above: Performed By: #### H H #### [facility] [address] [place] [address] [employer] W[employer] Technician: Mick Carrera DO Monocytes (Bld) [#/Vol] 1.20 10*3/uL Normal 0.1-1.3 [facility] Comment on above: Performed By: #### H H #### [facility] [address] [place] [address] [employer] W[employer] Technician: Mick Carrera DO Monocytes/100 WBC (Bld) 9 % High 1-7 [facility] Comment on above: Performed By: #### H H #### [facility] [place] [address] [employer] W[employer] Technician: Mick Carrera DO Neutrophil (Seg) 85 % High 36-66 [facility] Comment on above: Performed By: #### H H #### [facility] [address] [place], [place] [address] [place] [address] [employer] W[employer] Technician: Mick Carrera DO Platelet mean volume (Bld) [Entitic vol] 7.8 fL Normal 6.0-12.0 [facility] Comment on above: Performed By: #### H H #### [facility] [place] [address] [employer] W[employer] Technician: Mick Carrera DO Platelets (Bld) [#/Vol] 242 10*3/uL Normal 150-450 [facility] Comment on above: Performed By: #### H H #### [facility] [place] [address] [employer] W[employer] Technician: Mick Carrera DO RBC (Bld) [#/Vol] 4.10 10*6/uL Low 4.5-5.9 [facility] Comment on above: Performed By: #### H H #### [facility] [address] [place] [address] [employer] W[employer] Technician: Mick Carrera DO WBC (Bld) [#/Vol] 14.1 10*3/uL High 3.5-11.0 [facility] Comment on above: Performed By: #### H H #### [facility] [address] [place] [address] [employer] W[employer] Technician: Mick Carrera DO Drug Scr, Abuse, Uron 2022 Amphetamine(s),Ur Negative Normal NEG [facility] Comment on above: Result Comment: (Positive cutoff 1000 ng/mL) Performed By: #### B TAYLOR AYNEZ #### [facility] [address] [place] [address] [employer] W[employer] Technician: Mick Carrera DO Barbiturate(s),Ur Negative Normal NEG [facility] Comment on above: Result Comment: (Positive cutoff 200 ng/mL) Performed By: #### B RENATA, TAYLOR #### [facility] [address] [place] [address] [employer] W[employer] Technician: Mick Carrera DO Benzodiazepine(s) Negative Normal NEG [facility] Comment on above: Result Comment: (Positive cutoff 200 ng/mL) Performed By: #### Paddy YANEZ, HH #### [facility] [address] [facility] [place] [address] [employer] W[employer] Technician: Mick Carrera DO Cannabinoid(s),Ur Negative Normal NEG [facility] Comment on above: Result Comment: (Positive cutoff 50 ng/mL) Performed By: #### Paddy YANEZ, TAYLOR #### [facility] [address] [place] [address]. [place] [address] [employer] W[employer] Technician: Mick Carrera DO Cocaine Metabolite Negative Normal NEG [facility] Comment on above: Result Comment: (Positive cutoff 300 ng/mL) Performed By: #### Paddy YANEZ, TAYLOR #### [facility] [address] [place] [address]. [place] [address] [employer] W[employer] Technician: Mick Carrera DO Fentanyl, Urine Negative Normal NEG [facility] Comment on above: Result Comment: (Positive cutoff 5 ng/ml) Performed By: #### Paddy YANEZ, TAYLOR #### [facility] [address] [place] [address] [employer] W[employer] Technician: Mick Carrera DO Interpretive Info Assay provides medical screening only. The absence of expected drug(s) and/or Normal [facility] Comment on above: Result Comment: meta bolite(s) may indicate diluted or adulterated urine, limitations of testing or timing of collection. Testing for legal purposes should be confirmed by another method. To request confirmation of test result, please call the lab within 7 days of sample submission. Performed By: #### Paddy YANEZ, TAYLOR #### [facility] [address] [place] [address] [employer] W[employer] Technician: Mick Carrera DO Methadone Ql (U) Negative Normal NEG [facility] Comment on above: Result Comment: (Positive cutoff 300 ng/mL) Performed By: #### B RENATA, HH #### [facility] [place] [address] [employer] W[employer] Technician: Mick Carrera DO Opiate(s), Ur Positive Abnormal NEG [facility] Comment on above: Result Comment: (Positive cutoff 300 ng/mL) Performed By: #### B RENATA, HH #### [facility] [address] [place] [address] [employer] W[employer] Technician: Mick Carrera DO Oxycodone, Urine Negative Normal NEG [facility] Comment on above: Result Comment: (Positive cutoff 100 ng/mL) Performed By: #### B RENATA, HH #### [facility] [address] [place] [address] [employer] W[employer] Technician: Mick Carrera DO Phencyclidine, Ur Negative Normal NEG [facility] Comment on above: Result Comment: (Positive cutoff 25 ng/mL) Performed By: #### B RENATA, HH #### [facility] [address] [place] [address] [employer] W[employer] Technician: Mick Carrera DO Hemoglobin A1Con 01-24-2023 Glucose [Mass/Vol] 189 mg/dL Normal [facility] Comment on above: Result Comment: The ADA and AACC recommend providing the estimated average glucose result to permit better patient understanding of their HBA1c result. Performed By: #### H H #### [facility] [place] [address] [employer] W[employer] Technician: Mick Carrera DO HbA1c (Bld) [Mass fraction] 8.2 % High 4.0-6.0 [facility] Comment on above: Performed By: #### H H #### [facility] [address] [place] [address] [employer] W[employer] Technician: Mick Carrera DO Hgb/Hcton 01-24-2023 Hematocrit (Bld) [Volume fraction] 28.8 % Low [address] Comment on above: Performed By: #### H H #### [facility] [address] [place] [address] [employer] W[employer] Technician: Mick Carrera DO Hemoglobin (Bld) [Mass/Vol] 9.8 g/dL Low 13.5-17.5 [facility] Comment on above: Performed By: #### H H #### [facility] [address] [place] [address] [employer] W[employer] Technician: Mick Carrera DO Hematocrit (Bld) [Volume fraction] 32.4 % Low [address] [place] [address] Comment on above: Performed By: #### B RENATA, TAYLOR #### [facility] [address] [place] [address] [employer] W[employer] Technician: Mick Carrera DO Hemoglobin (Bld) [Mass/Vol] 11.1 g/dL Low 13.5-17.[address] [place] [address] Comment on above: Performed By: #### B RENATA, TAYLOR #### [facility] [address] [place] [address] [employer] W[employer] Technician: Mick Carrera DO Hematocrit (Bld) [Volume fraction] 39.7 % Low [address] [place] [address] Comment on above: Performed By: #### H H #### [facility] [address] [place] [address] [employer] W[employer] Technician: Mick Carrera DO Hemoglobin (Bld) [Mass/Vol] 13.8 g/dL Normal 13.5-17.5 [facility] Comment on above: Performed By: #### H H #### [facility] [address] [place] [address] [employer] W[employer] Technician: Mick Carrera DO UA w/Reflex Cultureon 2022 Bilirubin, SemiQt,Ur Negative Normal NEG [facility] Comment on above: Performed By: #### B RENATA, HH #### [facility] [address] [place] [address] [employer] W[employer] Technician: Mick Carrera DO Blood, Urine MOD Abnormal NEG [facility] Comment on above: Performed By: #### B RENATA, HH #### [facility] [place] [address] [employer] W[employer] Technician: Mick Carrera DO Clarity (U) Clear Normal CLEAR [facility] Comment on above: Performed By: #### B RENATA, HH #### [facility] [address] [place] [address] [employer] W[employer] Technician: Mick Carrera DO Color (U) Yellow Normal YEL [facility] Comment on above: Performed By: #### B RENATA, HH #### [facility] [address] [place] [address] [place] [address] [employer] W[employer] Technician: Mick Carrera DO Glucose Ql (U) LARGE Abnormal NEG [facility] Comment on above: Performed By: #### B RENATA, HH #### [facility] [address] [place] [address] [employer] W[employer] Technician: Mick Carrera DO Ketones Ql (U) LARGE Abnormal NEG [facility] Comment on above: Performed By: #### B RENATA, HH #### [facility] [facility] [address] [place] [address] [place] [address] [employer] Wiring Technician: Mick Carrera DO Leukocyte esterase Test strip Ql (U) Negative Normal NEG [facility] Comment on above: Performed By: #### B RENATA, HH #### [facility] [address] [place] [address] [place] [address] [employer] Wiring Technician: Mick Carrera DO Nitrite,Ur Negative Normal NEG [facility] Comment on above: Performed By: #### Paddy YANEZ, HH #### [facility] [place] [address] [employer] Wiring Technician: Mick Carrera DO PH,Ur 5.0 Normal 5.0-8.0 [facility] Comment on above: Performed By: #### Paddy YANEZ, HH #### [facility] [address] [place] [address] [employer] Wiring Technician: Mick Carrera DO Protein Ql (U) 1+ Abnormal NEG [facility] Comment on above: Performed By: #### Paddy YANEZ, HH #### [facility] [address] [place] [address] [employer] Wiring Technician: Mick Carrera DO Spec. [place],Ur 1.058 High 1.000-1.030 [facility] Comment on above: Performed By: #### Paddy YANEZ, HH #### [facility] [address] [place] [address] [employer] Wiring Technician: Mick Carrera DO Urobilinogen,Ur Normal Normal NORM [facility] Comment on above: Performed By: #### Paddy YANEZ, HH #### [facility] [address] [place] [address] [employer] Wiring Technician: Mick Carrera DO Urinalysis,Microon 3 Bacteria None Normal NONE [facility] Comment on above: Performed By: #### Paddy YANEZ, HH #### [facility] [address] [place] [address] [employer] Wiring Technician: Mick Carrera DO Casts 0 TO 2 Normal [facility] Comment on above: Performed By: #### Paddy YANEZ, HH #### [facility] [address] [facility] [place] [address] [employer] Wiring Technician: Mick Carrera DO Epithelial cells LM Ql (Urine sed) 0 TO 2 Normal [facility] Comment on above: Performed By: #### B RENATA, HH #### [facility] [address] [facility] [place] [address] [employer] Wiring Technician: Mick Crarera DO Urine RBC's 6 TO 9 Normal [facility] Comment on above: Performed By: #### B RENATA, HH #### [facility] [address] [facility] [place] [address] [employer] Wiring Technician: Mick Carrera DO Urine WBC's 0 TO 2 Normal [facility] Comment on above: Performed By: #### B RENATA, TAYLOR #### [facility] [address] [facility] [place] [address] [employer] Wiring Technician: Mick Carrera DO CT CERVICAL SPINE WO [...] COMPARISON: None. HISTORY: ORDERING SYSTEM PROVIDED HISTORY: [facility] [place] TECHNOLOGIST PROVIDED HISTORY: [facility] [place] Decision Support Exception - unselect if not [...] Little IV, MD 01/23/23 Final result Normal [facility] CT CHEST ABDOMEN PELVIS W CO NTRASTon [...] E White DO 01/23/23 Final result Normal [facility] CT HEAD WO CONTRASTon 2022 CT HEAD [...] Byron Jacob MD 01/23/23 Final result Normal [facility] CT LUMBAR SPINE WO CONTRASTo n 01-23-2023 [...] E White DO 01/23/23 Final result Normal [facility] CT THORACIC SPINE WO CONTRAS Ton 01-23-2023 [...] E White DO 01/23/23 Final result Normal [facility] Ethanol Alcoholon 01-23-2023 Ethanol [Mass/Vol] mg/dL Normal <10 [facility] Comment on above: Performed By: #### A LCB #### [facility] [address] [place] [address] [employer] Wiring Technician: Mick Carrera DO Ethanol percent <0.010 Normal [facility] Comment on above: Performed By: #### A LCB #### [facility] [address] [place] [address] [employer] Wiring Technician: Mick Carrera DO Trauma Profileon 01-23-2023 Anion gap [Moles/Vol] 14 mmol/L Normal 9-17 [facility] Comment on above: Performed By: #### B RENATA, HH #### [facility] [address] [place] [address] [employer] Wiring Technician: Mick Carrera DO Chloride [Moles/Vol] 99 mmol/L Normal 98-107 [facility] Comment on above: Performed By: #### B RENATA, HH #### [facility] [place] [address] [employer] Wiring Technician: Mick Carrera DO CO2 [Moles/Vol] 21 mmol/L Normal 20-31 [facility] Comment on above: Performed By: #### Paddy YANEZ, HH #### [facility] [place] [address] [employer] Wiring Technician: Mick Carrera DO Creatinine [Mass/Vol] 0.87 mg/dL Normal 0.70-1.20 [facility] Comment on above: Performed By: #### Paddy YANEZ, HH #### [facility] [place] [address] [employer] Wiring Technician: Mick Carrera DO Ethanol [Mass/Vol] mg/dL Normal <10 [facility] Comment on above: Performed By: #### Paddy YANEZ, HH #### [facility] [place] [address] [employer] Wiring Technician: Mick Carrera DO Ethanol percent <0.010 Normal [facility] Comment on above: Performed By: #### Paddy YANEZ, HH #### [facility] [place] [facility] [place] [address] [employer] Wiring Technician: Mick Carrera DO GFR/1.73 sq M.predicted among non-blacks MDRD (S/P/Bld) [Vol rate/Area] mL/min/{1.73_m2} Normal >60 [facility] Comment on above: Result Comment: These results [...] Performed By: #### B RENATA, HH #### [facility] [address] [place] [facility] [place] [address] [employer] W[employer] Technician: Mick Carrera DO Glucose [Mass/Vol] 210 mg/dL High 70-99 [facility] Comment on above: Performed By: #### B RENATA, HH #### [facility] [address] [facility] [place] [address] [employer] W[employer] Technician: Mick Carrera DO Potassium [Moles/Vol] 3.9 mmol/L Normal 3.7-5.3 [facility] Comment on above: Performed By: #### Paddy YANEZ, HH #### [facility] [place] [address] [employer] W[employer] Technician: Mick Carrera DO Sodium [Moles/Vol] 134 mmol/L Low 135-144 [facility] Comment on above: Performed By: #### B RENATA, HH #### [facility] [place] [address] [employer] W[employer] Technician: Mick aCrrera DO Urea nitrogen [Mass/Vol] 10 mg/dL Normal 6-20 [facility] Comment on above: Performed By: #### Paddy YANEZ, HH #### [facility] [address] [place] [address] [employer] W[employer] Technician: Mick Carrera DO aPTT Coag (Bld) [Time] 22.1 s Low 24.0-36.0 [facility] Comment on above: Result Comment: IV Heparin Therapy Range: 62.0-94.0 Performed By: #### B RENATA, TAYLOR #### [facility] [address] [place] [address] [employer] W[employer] Technician: Mick Carrera DO INR Coag (PPP) [Relative time] 1.0 {INR} Normal [facility] Comment on above: Result Comment: Therapeutic Range: Moderate Anticoagulant Intensity: INR = 2.0-3.0 High Anticoagulant Intensity: INR = 2.5-3.5 Performed By: #### Paddy YANEZ, HH #### [facility] [address] [place], [place] [address] [place] [address] [employer] W[employer] Technician: Mick Carrera DO PT Coag (PPP) [Time] 13.9 s Normal 11.8-14.6 [facility] Comment on above: Performed By: #### Paddy YANEZ, TAYLOR #### [facility] [place] [address] [employer] W[employer] Technician: Mick Carrera DO Erythrocyte distribution width (RBC) [Ratio] 12.7 % Normal 11.5-14.9 [facility] Comment on above: Performed By: #### Paddy YANEZ, HH #### [facility] [place] [address] [employer] W[employer] Technician: Mick Carrera DO Hematocrit (Bld) [Volume fraction] 46.3 % Normal 41-53 [facility] Comment on above: Performed By: #### Paddy YANEZ, TAYLOR #### [facility] [place] [address] [employer] Wiring Technician: Mick Carrera DO Hemoglobin (Bld) [Mass/Vol] 16.1 g/dL Normal 13.5-17.5 [facility] Comment on above: Performed By: #### Paddy YANEZ, TAYLOR #### [facility] [place] [address] [employer] W[employer] Technician: Mick Carrera DO MCH (RBC) [Entitic mass] 32.0 pg Normal 26-34 [facility] Comment on above: Performed By: #### Paddy YANEZ, HH #### [facility] [place] [address] [employer] Wiring Technician: Mick Carrera DO MCHC (RBC) [Mass/Vol] 34.8 g/dL Normal 31-37 [facility] Comment on above: Performed By: #### Paddy YANEZ, TAYLOR #### [facility] [address] [place] [address] [employer] Wiring Technician: Mick Carrera DO MCV (RBC) [Entitic vol] 91.8 fL Normal 80-100 [facility] Comment on above: Performed By: #### TAYLOR Thomason MP #### [facility] [address] [place] [address] [employer] Wiring Technician: Mick Carrera DO Platelet mean volume (Bld) [Entitic vol] 7.8 fL Normal 6.0-12.0 [facility] Comment on above: Performed By: #### TAYLOR Thomason MP #### [facility] [place] [address] [employer] W[employer] Technician: Mick Carrera DO Platelets (Bld) [#/Vol] 279 10*3/uL Normal 150-450 [facility] Comment on above: Performed By: #### Paddy YANEZ, TAYLOR #### [facility] [address] [place] [address] [employer] Wiring Technician: Mick Carrera DO RBC (Bld) [#/Vol] 5.04 10*6/uL Normal 4.5-5.9 [facility] Comment on above: Performed By: #### B RENATA, #### [facility] [address] [facility] [place] [address] [employer] Wiring Technician: Mick Carrera DO WBC (Bld) [#/Vol] 9.0 10*3/uL Normal 3.5-11.0 [facility] Comment on above: Performed By: #### B RENATA, #### [facility] [address] [facility] [place] [address] [employer] Wiring Technician: Mick Carrera DO Troponinon 01-23-2023 Troponin, High Sens 9 ng/L Normal 0-22 [facility] Comment on above: Result Comment: High Sensitivity Troponin values cannot be compared with other Troponin methodologies. Performed By: #### B RENATA, #### [facility] [address] [facility] [place] [address] [employer] Wiring Technician: Mick Carrera DO XR CHEST PORTABLEon 01-24-20 [...] Little IV, MD 01/23/23 Final result Normal [facility] XR PELVIS (1-2 VIEWS)on XR PELVIS (1-2 [...] Erick Geronimo MD 01/23/23 Final result Normal [facility] XR RADIUS ULNA RIGHT (2 VIEW S)on [...] Arshad Jr., DO 04/03/22 Final result Normal [facility] No acute bony process. [facility] EXAMINATION: 3 XRAY VIEWS OF THE [...] acute bony process. Elbow joint appears intact. [facility] Darryl Arshad Jr., DO - 04/03/2022 [...] appears intact. IMPRESSION: No acute bony process. [employer] Phone: Radiology Study observation (narrative) [facility] [employer] Phone: XR RADIUS ULNA RIGHT (2 VIEW S)Ordered By: Darryl Arshad on 04-03-2022 [employer] Phone: XR WRIST RIGHT (MIN 3 VIEWS) [...] Arshad Jr., DO 04/03/22 Final result Normal [facility] COVID-19, Rapidon 01-09-2022 SARS-CoV-2 (COVID-19) RNA LORY+probe Ql (Unsp spec) Not detected Not Detected [employer] Comment on above: Rapid NAAT: The specimen [...] management decisions. Fact sheet for Healthcare Providers: https://www.fda.gov/media/139882/download Fact sheet for Patients: https://www.fda.gov/media/220152/download Methodology: Isothermal Nucleic Acid Amplification Specimen Description .NASOPHARYNGEAL SWAB [facility] [employer] Basic Metabolic Panel w/ Ref isaiah to MGon 12-10-2021 Anion gap [Moles/Vol] 13 mmol/L 9 - 17 mmol/L [facility] Calcium [Mass/Vol] 9.3 mg/dL 8.6 - 10. 4 mg/dL [facility] Chloride [Moles/Vol] 97 mmol/L Low 98 - 10 7 mmol/L [employer] CO2 [Moles/Vol] 24 mmol/L 20 - 31 mmol/L [facility] Creatinine [Mass/Vol] 0.57 mg/dL Low 0.70 - 1.20 mg/dL [employer] GFR >60 >60 mL/min [employer] GFR Non- >60 >60 mL/min [employer] GFR/1.73 sq M.predicted MDRD (S/P/Bld) [Vol rate/Area] [facility] Comment on above: Average GFR for 40-4 9 years old: 99 mL/min/1.73sq m Chronic Kidney Disease: <60 mL/min/1.73sq m Kidney failure: <15 mL/min/1.73sq m eGFR calculated using average adult body mass. Additional eGFR calculator available at: http://www.[employer].com/multiple_crcl_2012.htm Glucose [Mass/Vol] 256 mg/dL High 70 - 99 mg/dL [facility] Interpretation and review of laboratory results Abnormal [facility] Potassium [Moles/Vol] 4.2 mmol/L 3.7 - 5.3 mmol/L [employer] Sodium [Moles/Vol] 134 mmol/L Low 135 - 144 mmol/L [facility] Urea nitrogen (BldV) [Mass/Vol] 14 mg/dL 6 - 20 mg/dL [facility] CBC with Auto Differentialon 12-10-2021 Absolute Eos # 0.38 [facility] th Absolute Immature Granulocyte 0.09 [facility] Absolute Lymph # 2.09 [facility] alth Absolute Jessamine # 0.98 [facility] Basophils (Bld) [#/Vol] 0.08 10*3/uL [facility] Basophils/100 WBC (Bld) 1 % 0 - 2 % [facility] Eosinophils/100 WBC (Bld) 4 % 1 - 4 % [facility] Hematocrit (Bld) [Volume fraction] 43.1 % 40.7 - 50.3 % [facility] Hemoglobin.gastrointes tinal spec 1 Ql (Stl) 15.4 g/dL 13.0 - 17.0 g/dL [facility] Immature granulocytes/100 WBC (Bld) 1 % High 0 [facility] Interpretation and review of laboratory results Abnormal [facility] Lymphocytes/100 WBC (Bld) 19 % Low 24 - 43 % [facility] MCH (RBC) [Entitic mass] 32.4 pg 25.2 - 33.5 pg [facility] MCHC (RBC) [Mass/Vol] 35.7 g/dL High 28.4 - 34.8 g/dL [facility] MCV (RBC) [Entitic vol] 90.5 fL 82.6 - 102.9 fL [facility] Monocytes/100 WBC (Bld) 9 % 3 - 12 % [facility] NRBC Automated 0.0 0.0 per 100 WBC [facility] Platelet distribution width (Bld) [Ratio] 11.7 % Low 11.8 - 14.4 % [facility] Platelet mean volume (Bld) [Entitic vol] 9.7 fL 8.1 - 13.5 fL [facility] Platelets (Bld) [#/Vol] 204 10*3/uL [facility] RBC (Bld) [#/Vol] 4.76 10*6/uL 4.21 - 5.7 7 m/uL [facility] Segmented neutrophils/100 WBC (Bld) 66 % High 36 - 65 % [facility] Segs Absolute 7.22 [facility] W[facility] (Bld) [#/Vol] 10.8 10*3/uL [facility] POC Glucose Fingerstickon 04 -24-2022 Glucose [Mass/Vol] 248 mg/dL High 75 - 110 mg/dL [facility] Interpretation and review of laboratory results Abnormal [facility] Glucose [Mass/Vol] 271 mg/dL High 75 - 110 mg/dL [facility] Interpretation and review of laboratory results Abnormal [facility] Troponinon 12-10-2021 Troponin, High Sensitivity 9 ng/L 0 - 22 ng/L [facility] Comment on above: High Sensitivity Troponin values cannot be compared with other Troponin methodologies. Patients with high levels of Biotin oral intake (i.e >5mg/day) may have falsely decreased Troponin levels. Samples collected within 8 hours of biotin intake may require additional information for diagnosis. [facility] Troponin, High Sensitivity 7 ng/L 0 - 22 ng/L [facility] Comment on above: High Sensitivity Troponin values cannot be compared with other Troponin methodologies. Patients with high levels of Biotin oral intake (i.e >5mg/day) may have falsely decreased Troponin levels. Samples collected within 8 hours of biotin intake may require additional information for diagnosis. [facility] Troponin, High Sensitivity 6 ng/L 0 - 22 ng/L [facility] Comment on above: High Sensitivity Troponin values cannot be compared with other Troponin methodologies. Patients with high levels of Biotin oral intake (i.e >5mg/day) may have falsely decreased Troponin levels. Samples collected within 8 hours of biotin intake may require additional information for diagnosis. [facility] CBC with Auto Differentialon 12-09-2021 Absolute Eos # 0.31 [facility] th Absolute Immature Granulocyte 0.09 [facility] Absolute Lymph # 2.56 [facility] alth Absolute Jessamine # 1.39 [facility] lt Basophils (Bld) [#/Vol] 0.09 10*3/uL [facility] Basophils/100 WBC (Bld) 1 % 0 - 2 % [facility] Eosinophils/100 WBC (Bld) 2 % 1 - 4 % [facility] Hematocrit (Bld) [Volume fraction] 46.5 % 40.7 - 50.3 % [facility] Hemoglobin.gastrointes tinal spec 1 Ql (Stl) 16.3 g/dL 13.0 - 17.0 g/dL [facility] Immature granulocytes/100 WBC (Bld) 1 % High 0 [facility] Interpretation and review of laboratory results Abnormal [facility] Lymphocytes/100 WBC (Bld) 20 % Low 24 - 43 % [facility] MCH (RBC) [Entitic mass] 32.6 pg 25.2 - 33.5 pg [facility] MCHC (RBC) [Mass/Vol] 35.1 g/dL High 28.4 - 34.8 g/dL [facility] MCV (RBC) [Entitic vol] 93.0 fL 82.6 - 102.9 fL [facility] Monocytes/100 WBC (Bld) 11 % 3 - 12 % [facility] NRBC Automated 0.0 0.0 per 100 WBC [facility] Platelet distribution width (Bld) [Ratio] 12.0 % 11.8 - 14.4 % [facility] Platelet mean volume (Bld) [Entitic vol] 10.0 fL 8.1 - 13.5 fL [facility] Platelets (Bld) [#/Vol] 220 10*3/uL [facility] RBC (Bld) [#/Vol] 5.00 10*6/uL 4.21 - 5.7 7 m/uL [facility] Segmented neutrophils/100 WBC (Bld) 65 % 36 - 65 % [facility] Segs Absolute 8.62 High [facility] WBC (Bld) [#/Vol] 13.1 10*3/uL High [facility] COVID-19, Rapidon 12-09-2021 SARS-CoV-2 (COVID-19) RNA LORY+probe Ql (Unsp spec) Not detected Not Detected [facility] Comment on above: Rapid NAAT: The specimen [...] management decisions. Fact sheet for Healthcare Providers: https://www.fda.gov/media/220771/download Fact sheet for Patients: https://www.fda.gov/media/675094/download Methodology: Isothermal Nucleic Acid Amplification Specimen Description .NASOPHARYNGEAL SWAB [facility] Comprehensive Metabolic Pane l w/ Reflex to MGon 12-09-2021 Albumin [Mass/Vol] 4.6 g/dL 3.5 - 5.2 g/dL [facility] Albumin/Globulin [Mass ratio] 1.4 {ratio} [facility] ALP (Bld) [Catalytic activity/Vol] 78 U/L 40 - 129 U/L [facility] ALT [Catalytic activity/Vol] 15 U/L 5 - 41 U/L [facility] Anion gap [Moles/Vol] 12 mmol/L 9 - 17 mmol/L [facility] AST [Catalytic activity/Vol] 11 U/L <40 [facility] Bilirubin [Mass/Vol] 0.55 mg/dL 0.3 - 1 .2 mg/dL [facility] Calcium [Mass/Vol] 9.7 mg/dL 8.6 - 10. 4 mg/dL [facility] Chloride [Moles/Vol] 97 mmol/L Low 98 - 10 7 mmol/L [facility] CO2 [Moles/Vol] 26 mmol/L 20 - 31 mmol/L [facility] Creatinine [Mass/Vol] 0.66 mg/dL Low 0.70 - 1.20 mg/dL [facility] Free PSA/Total PSA [Mass fraction] 7.8 g/dL 6.4 - 8.3 g/dL [facility] GFR >60 >60 mL/min [facility] GFR Non- >60 >60 mL/min [facility] GFR/1.73 sq M.predicted MDRD (S/P/Bld) [Vol rate/Area] [facility] Comment on above: Average GFR for 40-4 9 years old: 99 mL/min/1.73sq m Chronic Kidney Disease: <60 mL/min/1.73sq m Kidney failure: <15 mL/min/1.73sq m eGFR calculated using average adult body mass. Additional eGFR calculator available at: http://www.[employer]/multiple_crcl_2011.htm Glucose [Mass/Vol] 278 mg/dL High 70 - 99 mg/dL [facility] Interpretation and review of laboratory results Abnormal [facility] [place] Potassium [Moles/Vol] 4.0 mmol/L 3.7 - 5.3 mmol/L [facility] Sodium [Moles/Vol] 135 mmol/L 135 - 144 mmol/L [facility] Urea nitrogen (BldV) [Mass/Vol] 11 mg/dL 6 - 20 mg/dL [facility] [place] POC Glucose Fingerstickon Glucose [Mass/Vol] 330 mg/dL High 75 - 110 mg/dL [facility] [facility] [place] Interpretation and review of laboratory results Abnormal [facility] Glucose [Mass/Vol] 282 mg/dL High 75 - 110 mg/dL [facility] [place] Interpretation and review of laboratory results Abnormal [facility] Glucose [Mass/Vol] 191 mg/dL High 75 - 110 mg/dL [facility] [place] Interpretation and review of laboratory results Abnormal [facility] Troponinon 12-09-2021 Troponin, High Sensitivity 9 ng/L 0 - 22 ng/L [facility] Comment on above: High Sensitivity Troponin values cannot be compared with other Troponin methodologies. Patients with high levels of Biotin oral intake (i.e >5mg/day) may have falsely decreased Troponin levels. Samples collected within 8 hours of biotin intake may require additional information for diagnosis. [employer] Troponin, High Sensitivity 9 ng/L 0 - 22 ng/L [facility] Comment on above: High Sensitivity Troponin values cannot be compared with other Troponin methodologies. Patients with high levels of Biotin oral intake (i.e >5mg/day) may have falsely decreased Troponin levels. Samples collected within 8 hours of biotin intake may require additional information for diagnosis. [employer] Troponin, High Sensitivity 10 ng/L 0 - 22 ng/L [facility] Comment on above: High Sensitivity Troponin values cannot be compared with other Troponin methodologies. Patients with high levels of Biotin oral intake (i.e >5mg/day) may have falsely decreased Troponin levels. Samples collected within 8 hours of biotin intake may require additional information for diagnosis. [employer] Troponin, High Sensitivity 8 ng/L 0 - 22 ng/L [employer] Comment on above: High Sensitivity Troponin values cannot be compared with other Troponin methodologies. Patients with high levels of Biotin oral intake (i.e >5mg/day) may have falsely decreased Troponin levels. Samples collected within 8 hours of biotin intake may require additional information for diagnosis. [employer] XR CHEST PORTABLEon 12-10-19 No significant abnormalities [...] grossly intact. IMPRESSION: No significant abnormalities detected. [employer] Phone: Radiology Study observation (narrative) [employer] Phone: XR CHEST PORTABLEOrdered By: Rey Diaz on 12-09-2021 [employer] Phone: Basic Metabolic PanelOrdered By: Natalie Cooley on 01-25-2021 Anion gap [Moles/Vol] 13 mmol/L 9 - 17 mmol/L [employer] Phone: Calcium [Mass/Vol] 8.9 mg/dL 8.6 - 10. 4 mg/dL [employer] Phone: Chloride [Moles/Vol] 99 mmol/L 98 - 10 7 mmol/L [employer] Phone: CO2 [Moles/Vol] 22 mmol/L 20 - 31 mmol/L [employer] Phone: Creatinine [Mass/Vol] 0.68 mg/dL Low 0.70 - 1.20 mg/dL [employer] Phone: GFR >60 >60 mL/min [employer] Phone: GFR Non- >60 >60 mL/min [employer] Phone: GFR/1.73 sq M.predicted MDRD (S/P/Bld) [Vol rate/Area] [employer] Phone: Comment on above: Average GFR for 40-4 9 years old: 99 mL/min/1.73sq m Chronic Kidney Disease: <60 mL/min/1.73sq m Kidney failure: <15 mL/min/1.73sq m eGFR calculated using average adult body mass. Additional eGFR calculator available at: http://www.[employer]/Aibo_crcl_2012.htm GFR/1.73 sq M.predicted MDRD (S/P/Bld) [Vol rate/Area] NOT REPORTED [employer] Phone: Glucose [Mass/Vol] 245 mg/dL High 70 - 99 mg/dL [employer] Phone: Potassium [Moles/Vol] 3.7 mmol/L 3.7 - 5.3 mmol/L [employer] Phone: Sodium [Moles/Vol] 134 mmol/L Low 135 - 144 mmol/L [employer] Phone: Urea nitrogen (BldV) [Mass/Vol] 13 mg/dL 6 - 20 mg/dL [employer] Phone: Urea nitrogen/Creatinine (Bld) [Mass ratio] NOT REPORTED [employer] Phone: CBC WITH AUTO DIFFERENTIALOr dered By: Natalie Cooley on 01-25-2021 Absolute Eos # 0.37 [facility] Work Phone: Absolute Immature Granulocyte 0.10 [employer] Work Phone: Absolute Lymph # 2.88 [facility] Work Phone: Absolute [place]amine # 0.84 [facility] [place] Work Phone: Basophils (Bld) [#/Vol] 0.07 10*3/uL [employer] Work Phone: Basophils/100 WBC (Bld) 1 % 0 - 2 % [employer] Phone: Differential Type NOT REPORTED [employer] Phone: Eosinophils/100 WBC (Bld) 4 % 1 - 4 % [employer] Phone: Hematocrit (Bld) [Volume fraction] 47.6 % 40.7 - 50.3 % [employer] Work Phone: Hemoglobin.gastrointes tinal spec 1 Ql (Stl) 16.3 g/dL 13.0 - 17.0 g/dL [employer] Phone: Immature granulocytes/100 WBC (Bld) 1 % High 0 [employer] Phone: Interpretation and review of laboratory results Abnormal [employer] Phone: Lymphocytes/100 WBC (Bld) 27 % 24 - 43 % [employer] Phone: MCH (RBC) [Entitic mass] 31.3 pg 25.2 - 33.5 pg [employer] Phone: MCHC (RBC) [Mass/Vol] 34.2 g/dL 28.4 - 34.8 g/dL [employer] Phone: MCV (RBC) [Entitic vol] 91.4 fL 82.6 - 102.9 fL [employer] Phone: Monocytes/100 WBC (Bld) 8 % 3 - 12 % [employer] Phone: NRBC Automated 0.0 0.0 per 100 WBC [employer] Phone: Platelet distribution width (Bld) [Ratio] 12.0 % 11.8 - 14.4 % [employer] Phone: Platelet Estimate NOT REPORTED [employer] Phone: Platelet mean volume (Bld) [Entitic vol] 10.9 fL 8.1 - 13.5 fL [employer] Phone: Platelets (Bld) [#/Vol] 186 10*3/uL [employer] Phone: RBC (Bld) [#/Vol] 5.21 10*6/uL 4.21 - 5.7 7 m/uL [employer] Phone: RBC (Bld) [#/Vol] NOT REPORTED [employer] Phone: Segmented neutrophils/100 WBC (Bld) 59 % 36 - 65 % [employer] Phone: Segs Absolute 6.37 [facility] Work Phone: WBC (Bld) [#/Vol] 10.6 10*3/uL [employer] Phone: WBC (Bld) [#/Vol] NOT REPORTED [employer] Phone: [employer] Phone: EKG 12 LeadOrdered By: Daniel Kennedy on 01-25-2021 Atrial Rate 93 BPM [employer] Phone: P [place] 32 degrees [employer] Phone: P-R Interval 144 ms [employer] Phone: Q-T Interval 334 ms [employer] Phone: QRS Duration 92 ms [employer] Phone: QTc Calculation (Bazett) 415 ms [employer] Phone: R [place] 19 degrees [employer] Phone: T [place] 60 degrees [employer] Phone: Ventricular Rate 93 BPM [employer] Work Phone: Normal sinus rhythm ST elevation consider inferior injury or acute infarct ACUTE NV / STEMI Consider right ventricular involvement in acute inferior infarct Abnormal ECG When compared with ECG of 05-MAR-2002 16:12, ST elevation now present in Inferior leads [employer] Phone: Dao, pn Incoming Ekg Results From [employer] - 01/25/2021 8:55 AM EDT Normal sinus rhythm ST elevation consider inferior injury or acute infarct ACUTE NV / STEMI Consider right ventricular involvement in acute inferior infarct Abnormal ECG When compared with ECG of 05-MAR-2002 16:12, ST elevation now present in Inferior leads [employer] Work Phone: [employer] Phone: EKG 12 LeadOrdered By: Aria Cooley on 01-25-2021 Atrial Rate 86 BPM [employer] Work Phone: P [place] 39 degrees [employer] Phone: P-R Interval 146 ms [employer] Phone: Q-T Interval 352 ms [employer] Phone: QRS Duration 92 ms [employer] Phone: QTc Calculation (Bazett) 421 ms [employer] Phone: R [place] -35 degrees [employer] Work Phone: T [place] 8 degrees [employer] Phone: Ventricular Rate 86 BPM [employer] Work Phone: Normal sinus rhythm Left axis deviation Inferior infarct , age undetermined Abnormal ECG When compared with ECG of 23-JAN-2021 21:59, QRS axis Shifted left Inferior infarct is now Present ST no longer elevated in Inferior leads Nonspecific T wave abnormality, worse in Lateral leads [employer] Phone: Dao, pn Incoming Ekg Results From [employer] - 01/25/2021 8:51 AM EDT Normal sinus rhythm Left axis deviation Inferior infarct , age undetermined Abnormal ECG When compared with ECG of 23-JAN-2021 21:59, QRS axis Shifted left Inferior infarct is now Present ST no longer elevated in Inferior leads Nonspecific T wave abnormality, worse in Lateral leads [employer] Phone: [employer] Phone: LDL Cholesterol, DirectOrder ed By: Franci Ruvalcaba on 01-25-2021 Cholesterol in LDL [Mass/Vol] 123 mg/dL High <100 [employer] Phone: Interpretation and review of laboratory results Abnormal [employer] Phone: [employer] Phone: Lipid, FastingOrdered By: Kojo Ruvalcaba on 01-25-2021 Cholesterol [Mass/Vol] 221 mg/dL High <200 [employer] Phone: Comment on above: Cholesterol Guidelines: <200 Desirable 200-240 Borderline >240 Undesirable Cholesterol in HDL [Mass/Vol] 26 mg/dL Low >40 [employer] Phone: Comment on above: HDL Guidelines: <40 Undesirable 40-59 Borderline >59 Desirable Cholesterol in VLDL [Mass/Vol] NOT REPORTED 1 - 30 mg/dL [employer] Phone: Cholesterol.total/Chol esterol in HDL [Mass ratio] 8.5 {ratio} High <5 [employer] Phone: LDL Cholesterol 0 - 130 mg/dL [employer] Phone: Comment on above: Calculation not chase d for Triglyceride value greater than 400 mg/dL. Direct LDL reflexed LDL Guidelines: <100 Desirable 100-129 Near to/above Desirable 130-159 Borderline >159 Undesirable Direct (measured) LDL and calculated LDL are not interchangeable tests. Triglyceride, Fasting 638 mg/dL High <150 [facility] [employer] Phone: Comment on above: Triglyceride Guidelines: <150 Desirable 150-199 Borderline 200-499 High >499 Very high Based on AHA Guidelines for fasting triglyceride, May 2012. No Panel InformationOrdered By: Natalie Cooley on 01-25-2021 Interpretation and review of laboratory results Abnormal [employer] Phone: [employer] Phone: POC Glucose FingerstickOrder ed By: Franci Ruvalcaba on 01-25-2021 Glucose [Mass/Vol] 281 mg/dL High 75 - 110 mg/dL [employer] Phone: Interpretation and review of laboratory results Abnormal [employer] Phone: [employer] Phone: Glucose [Mass/Vol] 286 mg/dL High 75 - 110 mg/dL [employer] Phone: Interpretation and review of laboratory results Abnormal [employer] Phone: [employer] Phone: TroponinOrdered By: Natalie Cooley on 01-25-2021 Interpretation and review of laboratory results Abnormal [employer] Phone: Troponin Interp NOT REPORTED [facility] Work Phone: Troponin T NOT REPORTED <0.03 ng/mL [facility] [employer] Work Phone: Troponin, High Sensitivity 274 ng/L Critically high 0 - 22 ng/L [employer] Phone: Comment on above: High Sensitivity Troponin values cannot be compared with other Troponin methodologies. Patients with high levels of Biotin oral intake (i.e >5mg/day) may have falsely decreased Troponin levels. Samples collected within 8 hours of biotin intake may require additional information for diagnosis. 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 Procedure Date Date: 01/24/2021 Start: 08:07 AM Study Location: [facility] Technical Quality: Adequate visualization Comments:STEMI. [...] valvular abnormalities. Signature Electronically signed by Farida [facility]) on 01/24/2021 03:14 PM FINDINGS Left [...] Wall E' velocity:0.07 m/s Lateral Wall E/E':6.6 [facility] Work Phone: Dao, pn Incoming Cardio Results From [employer] - 01/24/2021 3:15 PM EDT Transthoracic Echocardiography Report (TTE) Patient Name ANTONIA Date of Study 01/24/2021 JOHN Carpio Date of 1975 Gender Male Age 45 year(s) Race Unknown Room Number 1011 Height: 65 inch, 165.1 cm Corporate ID [id number] Weight: 250 pounds, 113.4 kg # Patient Acct [id number] BSA: 2.17 m^2 BMI: 41.6 kg/m^2 # MR # [id number] 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 Procedure Date Date: 01/24/2021 Start: 08:07 AM Study Location: [facility] Technical Quality: Adequate visualization Comments:STEMI. [...] - - - Electronically signed by Steven Burr([facility]) on 01/24/2021 03:14 PM - FINDINGS [...] Wall E' velocity:0.07 m/s Lateral Wall E/E':6.6 [employer] Phone: [employer] Phone: HEMOGLOBIN [id number] By: Monik Gill on 01-24-2021 Glucose [Mass/Vol] 229 mg/dL [employer] Phone: Comment on above: The ADA and AACC rec ommend providing the estimated average glucose result to permit better patient understanding of their HBA1c result. HbA1c (Bld) [Mass fraction] 9.6 % High 4.0 - 6.0 % [employer] Phone: Interpretation and review of laboratory results Abnormal [employer] Phone: [employer] Phone: POC Glucose FingerstickOrder ed By: Franci Ruvalcaba on 01-24-2021 Glucose [Mass/Vol] 263 mg/dL High 75 - 110 mg/dL [employer] Phone: Interpretation and review of laboratory results Abnormal [employer] Phone: [employer] Phone: Glucose [Mass/Vol] 304 mg/dL High 75 - 110 mg/dL [employer] Phone: Interpretation and review of laboratory results Abnormal [employer] Phone: [employer] Phone: Glucose [Mass/Vol] 302 mg/dL High 75 - 110 mg/dL [employer] Phone: Interpretation and review of laboratory results Abnormal [employer] Phone: [employer] Phone: Glucose [Mass/Vol] 274 mg/dL High 75 - 110 mg/dL [employer] Phone: Interpretation and review of laboratory results Abnormal [employer] Phone: [employer] Work Phone: Glucose [Mass/Vol] 413 mg/dL Critically high 75 - 1 10 mg/dL [facility] Phone: Interpretation and review of laboratory results Abnormal [facility] Work Phone: [employer] Work Phone: TSH with ReflexOrdered By: Jorge Cooley on 01-24-2021 TSH Qn 1.51 m[IU]/L [employer] Work Phone: [employer] Phone: TroponinOrdered By: Natalie Cooley on 01-24-2021 Interpretation and review of laboratory results Abnormal [employer] Phone: Troponin Interp NOT REPORTED [facility] Work Phone: Troponin T NOT REPORTED <0.03 ng/mL [facility] Work Phone: Troponin, High Sensitivity 339 ng/L Critically high 0 - 22 ng/L [facility] Phone: Comment on above: High Sensitivity Troponin values cannot be compared with other Troponin methodologies. Patients with high levels of Biotin oral intake (i.e >5mg/day) may have falsely decreased Troponin levels. Samples collected within 8 hours of biotin intake may require additional information for diagnosis. [employer] Phone: APTTOrdered By: Darryl shearer on 01-23-2021 aPTT Coag (Bld) [Time] 22.7 s [facility] [place] Work Phone: Comment on above: IV Heparin Therapy Range: 48.6-77.8 Activated clotting timeOrder ed By: Nicolette Mendoza on 01-23-2021 Activated Clotting Time 249 High [facility] Work Phone: Interpretation and review of laboratory results Abnormal [employer] Phone: [employer] Phone: Basic Metabolic Panel w/ Ref isaiah to MGOrdered By: Darryl Kennedy on 01-23-2021 Anion gap [Moles/Vol] 15 mmol/L 9 - 17 mmol/L [employer] Phone: Calcium [Mass/Vol] 9.5 mg/dL 8.6 - 10. 4 mg/dL [employer] Phone: Chloride [Moles/Vol] 97 mmol/L Low 98 - 10 7 mmol/L [employer] Phone: CO2 [Moles/Vol] 22 mmol/L 20 - 31 mmol/L [employer] Phone: Creatinine [Mass/Vol] 0.85 mg/dL 0.70 - 1.20 mg/dL [employer] Phone: GFR >60 >60 mL/min [employer] Phone: GFR Non- >60 >60 mL/min [employer] Phone: GFR/1.73 sq M.predicted MDRD (S/P/Bld) [Vol rate/Area] [employer] Phone: Comment on above: Average GFR for 40-4 9 years old: 99 mL/min/1.73sq m Chronic Kidney Disease: <60 mL/min/1.73sq m Kidney failure: <15 mL/min/1.73sq m eGFR calculated using average adult body mass. Additional eGFR calculator available at: http://www.[employer]ast/multiple_crcl_2012.htm GFR/1.73 sq M.predicted MDRD (S/P/Bld) [Vol rate/Area] NOT REPORTED [employer] Phone: Glucose [Mass/Vol] 433 mg/dL Critically high 70 - 9 9 mg/dL [employer] Phone: Interpretation and review of laboratory results Abnormal [employer] Phone: Potassium [Moles/Vol] 4.2 mmol/L 3.7 - 5.3 mmol/L [employer] Phone: Sodium [Moles/Vol] 134 mmol/L Low 135 - 144 mmol/L [employer] Phone: Urea nitrogen (BldV) [Mass/Vol] 10 mg/dL 6 - 20 mg/dL [employer] Phone: Urea nitrogen/Creatinine (Bld) [Mass ratio] NOT REPORTED [employer] Phone: [employer] Phone: Brain Natriuretic PeptideOrd ered By: Darryl Kennedy on 01-23-2021 BNP Interpretation Pro-BNP Reference Range: [employer] Phone: Comment on above: Rule Out: <300 [place] Zone: Age <50 300-450 Age 50-75 300-900 Age >75 300-1800 Usually represents mild to moderate HF but other cardiopulmonary causes cannot be ruled out. Rule In: Age <50 >450 Age 50-75 >900 Age >75 >1800 Pro-BNP <20 <300 pg/mL [employer] Phone: Comment on above: Pro-BNP results suzy ot be compared to BNP results. CALCIUM, IONIC (POC)Ordered By: Nicolette Mendoza on 01-23-2021 POC Ionized Calcium 1.20 mmol/L 1.15 - 1 .33 mmol/L [employer] Work Phone: CBC Auto DifferentialOrdered By: Darryl Kennedy on 01-23-2021 Absolute Eos # 0.26 [facility] Work Phone: Absolute Immature Granulocyte 0.07 [employer] Work Phone: Absolute Lymph # 3.02 [facility] Work Phone: Absolute [place] # 0.82 [facility] Work Phone: Basophils (Bld) [#/Vol] 0.09 10*3/uL [employer] Phone: Basophils/100 WBC (Bld) 1 % 0 - 2 % [employer] Phone: Differential Type NOT REPORTED [employer] Phone: Eosinophils/100 WBC (Bld) 3 % 1 - 4 % [employer] Phone: Hematocrit (Bld) [Volume fraction] 49.4 % 40.7 - 50.3 % [employer] Phone: Hemoglobin.gastrointes tinal spec 1 Ql (Stl) 17.3 g/dL High 13.0 - 17.0 g/dL [employer] Phone: Immature granulocytes/100 WBC (Bld) 1 % High 0 [employer] Phone: Interpretation and review of laboratory results Abnormal [employer] Phone: Lymphocytes/100 WBC (Bld) 33 % 24 - 43 % [employer] Phone: MCH (RBC) [Entitic mass] 31.2 pg 25.2 - 33.5 pg [employer] Phone: MCHC (RBC) [Mass/Vol] 35.0 g/dL High 28.4 - 34.8 g/dL [employer] Phone: MCV (RBC) [Entitic vol] 89.2 fL 82.6 - 102.9 fL [employer] Phone: Monocytes/100 WBC (Bld) 9 % 3 - 12 % [employer] Phone: NRBC Automated 0.0 0.0 per 100 WBC [employer] Phone: Platelet distribution width (Bld) [Ratio] 11.8 % 11.8 - 14.4 % [employer] Phone: Platelet Estimate NOT REPORTED [employer] Phone: Platelet mean volume (Bld) [Entitic vol] 10.5 fL 8.1 - 13.5 fL [employer] Phone: Platelets (Bld) [#/Vol] 224 10*3/uL [employer] Phone: RBC (Bld) [#/Vol] 5.54 10*6/uL 4.21 - 5.7 7 m/uL [employer] Phone: RBC (Bld) [#/Vol] NOT REPORTED [employer] Phone: Segmented neutrophils/100 WBC (Bld) 53 % 36 - 65 % [employer] Phone: Segs Absolute 4.99 [facility] Work Phone: WBC (Bld) [#/Vol] 9.3 10*3/uL [employer] Phone: WBC (Bld) [#/Vol] NOT REPORTED [employer] Phone: [employer] Phone: COVID-19, RapidOrdered By: Aly Kennedy on 01-23-2021 SARS-CoV-2 (COVID-19) RNA LORY+probe Ql (Unsp spec) Not detected Not Detected [employer] Phone: Comment on above: Rapid NAAT: The [...] management decisions. Fact sheet for Healthcare Providers: https://www.[employer].gov/media/867898/download Fact sheet for Patients: https://www.fda.gov/media/613367/download Methodology: Isothermal Nucleic Acid Amplification Specimen Description .NASOPHARYNGEAL SWAB [employer] Work Phone: [employer] Phone: Catheterization and angiogra phy procedure details panelOrdered By: Stefan Hidalgo on 01-23-2021 Cardiac Diagnostic + PCI Report Demographics Patient ANTONIA Carpio Date of Study 01/23/2021 Name Date of 1975 Gender Male Age 45 year(s) Race Unknown Room [id number]^VALENTÍN^FRANCI Height: 65 inch, 165.1 cm Number Corporate [id number] Weight: 250 pounds, 113.4 kg ID # Patient [id number] BSA: 2.17 m^2 BMI: 41.6 kg/m^2 Acct # MR # [id number] Performing Franci Ruvalcaba Physician Referring # Physician [...] Borderline LV systolic function Recommendations Routine Post NV/Stent Orders. Medical therapy as needed. Risk factor modification. Signature ---- Electronically signed by Franci Ruvalcaba(Perform [facility] Physician) on 01/23/2021 23:37 ---- Angiographic [...] for Left ventriculography. Contrast Material: - Isovue [id number] ml Fluoroscopy Time: Diagnostic: 6:54 minutes. Total: [...] assessed as CCS IV according to the [place] clinical classification. Hemodynamics Condition: Baseline Room Air Estimated: 287.58Heart Rate: 102 bpm Pressure +-----+ + !Site !Pressure ! +-----+ + !AO (more content not included)... [employer] Phone: Dao, Mhpn Incoming Cardio Results From [employer] - 01/23/2021 11:37 PM EDT Cardiac Diagnostic + PCI Report Demographics Patient ANTONIA Carpio Date of Study 01/23/2021 Name Date of 1975 Gender Male Age 45 year(s) Race Unknown Room [id number]^OSCAR Height: 65 inch, 165.1 cm Number Corporate [id number] Weight: 250 pounds, 113.4 kg ID # Patient [id number] BSA: 2.17 m^2 BMI: 41.6 kg/m^2 Acct # MR # [id number] Performing Franci Ruvalcaba Physician Referring # Physician [...] Borderline LV systolic function Recommendations Routine Post NV/Stent Orders. Medical therapy as needed. Risk factor modification. Signature ---- Electronically signed by Franci Ruvalcaba(Perform [facility] Physician) on 01/23/2021 23:37 ---- Angiographic [...] for Left ventriculography. Contrast Material: - Isovue [id number] ml Fluoroscopy Time: Diagnostic: 6:54 minutes. Total: [...] assessed as CCS IV according to the [place] clinical classification. Hemodynamics Condition: Baseline Room Air Estimated: 287.58Heart Rate: 102 bpm Pressure +-----+ + !Site !Pressure ! +-----+ + !AO !165/99 (130) ! +-----+ (more content not included)... [employer] Phone: [employer] Phone: Catheterization and angiogra phy procedure details panelOrdered By: Franci Ruvalcaba on 01-23-2021 [employer] Phone: Creatinine W/GFR Point of Ca reOrdered By: Nicolette Mendoza on 01-23-2021 Creatinine [Mass/Vol] 0.95 mg/dL 0.51 - 1.19 mg/dL [employer] Phone: GFR Non- >60 >60 mL/min [employer] Phone: GFR/1.73 sq M.predicted MDRD (S/P/Bld) [Vol rate/Area] mL/min/{1.73_m2} >60 mL/min [employer] Phone: GFR/1.73 sq M.predicted MDRD (S/P/Bld) [Vol rate/Area] [employer] Phone: Comment on above: Average GFR for 40-4 9 years old: 99 mL/min/1.73sq m Chronic Kidney Disease: <60 mL/min/1.73sq m Kidney failure: <15 mL/min/1.73sq m eGFR calculated using average adult body mass. Additional eGFR calculator available at: http://www.[employer]/multiple_crcl_2012.htm ELECTROLYTES PLUSOrdered By: Nicolette Mendoza on 01-23-2021 Anion gap [Moles/Vol] 13 mmol/L 7 - 16 mmol/L [employer] Phone: Chloride [Moles/Vol] 100 mmol/L 98 - 10 7 mmol/L [employer] Phone: CO2 [Moles/Vol] 28 mmol/L 22 - 30 mmol/L [employer] Phone: Potassium [Moles/Vol] 4.2 mmol/L 3.5 - 4.5 mmol/L [employer] Phone: Sodium [Moles/Vol] 140 mmol/L 138 - 146 mmol/L [employer] Phone: Hemoglobin and hematocrit, b loodOrdered By: Nicolette Mendoza on 01-23-2021 Hematocrit (Bld) [Volume fraction] 54 % High 41 - 53 % [employer] Phone: Hemoglobin (Bld) [Mass/Vol] 18.5 g/dL High 13.5 - 17.5 g/dL [employer] Phone: Lactic Acid, POCOrdered By: Nicolette Mendoza on 01-23-2021 POC Lactic Acid 2.80 mmol/L High 0.56 - 1.39 mmol/L [employer] Phone: No Panel InformationOrdered By: Darryl Kennedy on 01-23-2021 [employer] Phone: [employer] Phone: No Panel InformationOrdered By: Nicolette Mendoza on 01-23-2021 Interpretation and review of laboratory results Abnormal [employer] Phone: [employer] Phone: POCT GlucoseOrdered By: Ellie Mendoza on 01-23-2021 Glucose [Mass/Vol] 464 mg/dL Critically high 74 - 1 00 mg/dL [employer] Phone: POCT urea (BUN)Ordered By: Aly Mendoza on 01-23-2021 Urea nitrogen [Mass/Vol] 10 mg/dL 8 - 26 mg/dL [employer] Phone: PROTIME-INROrdered By: Daniel Kennedy on 01-23-2021 INR Coag (Bld) [Relative time] 1.1 {INR} [employer] Phone: Comment on above: Therapeutic Range: Moderate Anticoagulant Intensity: INR = 2.0-3.0 High Anticoagulant Intensity: INR = 2.5-3.5 PT Coag (PPP) [Time] 11.3 s [employer] Phone: TroponinOrdered By: Darryl roland on 01-23-2021 Troponin Interp NOT REPORTED [employer] [facility] Work Phone: Troponin T NOT REPORTED <0.03 ng/mL [facility] Work Phone: Troponin, High Sensitivity 20 ng/L 0 - 22 ng/L [employer] Phone: Comment on above: High Sensitivity Troponin values cannot be compared with other Troponin methodologies. Patients with high levels of Biotin oral intake (i.e >5mg/day) may have falsely decreased Troponin levels. Samples collected within 8 hours of biotin intake may require additional information for diagnosis. Venous Blood Gas, POCOrdered By: Nicolette Mendoza on 01-23-2021 Isaias Test NOT REPORTED [employer] Phone: FIO2 NOT REPORTED [employer] Phone: HCO3 (Bld) [Moles/Vol] 28 mmol/L 22.0 - 29.0 mmol/L [employer] Phone: Mode NOT REPORTED [employer] Work Phone: Negative Base Excess, Scott NOT REPORTED [employer] Work Phone: O2 Device/Flow/% NOT REPORTED [employer] Work Phone: Oxygen saturation in Blood 82 % 60.0 - 85.0 % [employer] Work Phone: pCO2, Scott 44.3 [employer] Work Phone: pH, Scott 7.408 [employer] Work Phone: pO2, Scott 46.9 [employer] Work Phone: POC pCO2 Temp NOT REPORTED mm Hg [facility] Work Phone: POC pH Temp NOT REPORTED [employer] Work Phone: POC pO2 Temp NOT REPORTED mm Hg [employer] Work Phone: Positive Base Excess, Scott 3 [employer] Work Phone: Pt Temp NOT REPORTED [employer] Work Phone: Sample Site NOT REPORTED [employer] Work Phone: Total CO2, Venous NOT REPORTED 23.0 - 30. 0 mmol/L [employer] Work Phone: XR CHEST PORTABLEOrdered By: Darryl Kennedy on 01-23-2021 No acute process. [facility] Work Phone: EXAMINATION: ONE XRAY VIEW OF THE CHEST 01/23/2021 10:07 pm COMPARISON: None. HISTORY: ORDERING SYSTEM PROVIDED HISTORY: [facility] TECHNOLOGIST PROVIDED HISTORY: chest pain [facility] Reason for Exam: upr Acuity: Unknown Type of Exam: Unknown FINDINGS: The lungs are without acute focal process. There is no effusion or pneumothorax. The cardiomediastinal silhouette is without acute process. The osseous structures are without acute process. [employer] Work Phone: Dao, Mhpn Incoming Radiant Results From [employer] - 01/23/2021 11:05 PM EDT EXAMINATION: ONE XRAY VIEW OF THE CHEST 01/23/2021 10:07 pm COMPARISON: None. HISTORY: ORDERING SYSTEM PROVIDED HISTORY: chest pain [facility] TECHNOLOGIST PROVIDED HISTORY: chest pain [facility] Reason for Exam: upr Acuity: Unknown Type of Exam: Unknown FINDINGS: The lungs are without acute focal process. There is no effusion or pneumothorax. The cardiomediastinal silhouette is without acute process. The osseous structures are without acute process. IMPRESSION: No acute process. [employer] Work Phone: [employer] Phone: Vital Signs Date Time Vital Sign Value Performing Clinician Timmy espino 02-01-2023 04:47-0400 Body height 165.1 cm Stephenie Booker [employer] Phone: [employer] 02-01-2023 04:47-0400 Body mass index (BMI) [Ratio] 33.95 kg/m2 Stephenie Booker [place] Work Phone: [employer] 02-01-2023 04:47-0400 Body temperature 98.2 [degF] Stephenie Booker [employer] Phone: [employer] 02-01-2023 04:47-0400 Body weight 92.53 kg Stephenie Booker [employer] Phone: [employer] 02-01-2023 04:47-0400 Diastolic blood pressure 67 mm[Hg] Stephenie Booker [place] Work Phone: [employer] 02-01-2023 04:47-0400 Heart rate 88 /min Stephenie Booker [employer] Phone: [employer] 02-01-2023 04:47-0400 Respiratory rate 16 /min Stephenie Booker [employer] Phone: [employer] 02-01-2023 04:47-0400 SaO2% (BldA) [Mass fraction] 95 % Stephenie Booker DO Work Phone: [employer] 02-01-2023 04:47-0400 Systolic blood pressure 113 mm[Hg] Stephenie Booker DO Work Phone: [employer] 12-10-2021 08:25-0400 Body temperature 98.29 [degF] Markus Berkowitz MD [employer] 12-10-2021 08:25-0400 Diastolic blood pressure 79 mm[Hg] Markus Berkowitz MD [employer] 12-10-2021 08:25-0400 Heart rate 81 /min Markus Berkowitz MD [employer] 12-10-2021 08:25-0400 Respiratory rate 18 /min Markus Berkowitz MD [employer] 12-10-2021 08:25-0400 SaO2% (BldA) [Mass fraction] 96 % Markus Berkowitz MD [employer] 12-10-2021 08:25-0400 Systolic blood pressure 119 mm[Hg] Markus Berkowitz MD [employer] 12-09-2021 08:26-0400 Body height 162.6 cm Markus Berkowitz MD [employer] 12-09-2021 08:26-0400 Body mass index (BMI) [Ratio] 34.33 kg/m2 Markus Berkowitz MD [employer] 12-09-2021 08:26-0400 Body weight 90.72 kg Markus Berkowitz MD [employer] 01-25-2021 16:12-0400 Body temperature 97.7 [degF] Nicolette Mendoza MD Work Phone: [employer] Work Phone: 01-25-2021 16:12-0400 Heart rate 95 /min Nicolette Mnedoza MD Work Phone: [employer] Work Phone: 01-25-2021 16:12-0400 Respiratory rate 19 /min Nicolette Mendoza MD Work Phone: [employer] Work Phone: 01-25-2021 16:12-0400 SaO2% (BldA) [Mass fraction] 95 % Nicolette Mendoza MD Work Phone: [employer] Work Phone: 01-25-2021 11:30-0400 Diastolic blood pressure 72 mm[Hg] Nicolette Mendoza MD Work Phone: [employer] Work Phone: 01-25-2021 11:30-0400 Systolic blood pressure 118 mm[Hg] Nicolette Mendoza MD Work Phone: [employer] Work Phone: 01-25-2021 07:05-0400 Body mass index (BMI) [Ratio] 37.11 kg/m2 Nicolette Mendoza MD Work Phone: [employer] Phone: 01-25-2021 07:05-0400 Body weight 101.15 kg Nicolette Mendoza MD Work Phone: [employer] Work Phone: 01-23-2021 22:03-0400 Body height 165.1 cm Nicolette Mendoza MD Work Phone: [employer] Work Phone: Encounters Encounter Date Encounter Type Care Provider Facility Start: 04-23-2023 End: 04-23-2023 ambulatory UNKNOWN PROVIDER Facility:[facility] Start: 02-01-2023 End: 02-01-2023 Emergency department patient visit JEANINE ROSA [facility] Start: 02-01-2023 End: 02-01-2023 Emergency department patient visit Stephenie Booker DO Work Phone: [facility] ED Comment on above: Scrotal hematoma (Pr imary Dx); Scrotal swelling Start: 01-31-2023 End: 02-03-2023 ambulatory VIVIENNE Lu [facility] Start: 01-31-2023 End: 01-31-2023 Subsequent hospital visit by physician Vivienne Munson DO Work Phone: [facility] Comment on above: Laceration of left k zen, initial encounter Start: 01-23-2023 End: 01-27-2023 Evaluation and management of inpatient JEANINE ROSA [facility] Start: 04-03-2022 End: 04-06-2022 ambulatory JEANINE ROSA [facility] Start: 04-03-2022 End: 04-05-2022 Subsequent hospital visit by physician Farzana Swain Xray Rm 1 [facility] Radiology Comment on above: Fall, subsequent enc ounter; Right wrist pain Start: 01-09-2022 End: 01-09-2022 Subsequent hospital visit by physician Gerardo Resp Therapy Rm 400 [facility] Pulm Function Test Comment on above: Chest pain, unspecif ied type Start: 12-09-2021 End: 12-10-2021 Emergency department patient visit Markus Berkowitz MD [address] Med Surg Comment on above: Other chest pain (Pr imary Dx) Start: 01-23-2021 End: 01-25-2021 Evaluation and management of inpatient Nicolette Mendoza MD Work Phone: [facility] CAR 1 Comment on above: ST elevation [...] 2 views Jeanine Rosa APR N - DEPUTY DIRECTOR Work Phone: Start: 01-09-2022 Lung differential function Jeanine Arellano y ALUMINUM POURER - DEPUTY DIRECTOR Work Phone: Start: 01-09-2022 COVID-19, RAPID Jeanine Rosa ALUMINUM POURER - DEPUTY DIRECTOR Work Phone: Start: 12-10-2021 End: 12-10-2021 Assay [...] (Diabetes, CKD 3-4, OR last GFR 15-59) [facility] [employer] Start: 01-28-2024 GFR test (Diabetes, CKD 3-4, OR last GFR 15-59) GFR test (Diabetes, CKD 3-4, OR last GFR 15-59) [facility] [employer] Start: 01-25-2024 Hemoglobin A1c measurement A1C test (Diabetic or Prediabetic) [facility] [employer] Start: 10-08-2023 Depression Screen Depression Screen [facility] [employer] Start: 04-02-2023 Diabetic foot examination Diabetic foot exam [facility] [employer] Start: 04-02-2023 Hemoglobin A1c measurement A1C test (Diabetic or Prediabetic) [facility] [employer] Start: 03-19-2023 Influenza vaccination Flu vaccine (Season Ended) [facility] [employer] Start: 02-07-2023 End: 02-07-2023 Patient encounter procedure 02/07/2023 Office Visit Behavioral Health Ernst Hall, [facility] [address] [place] [address] [facility] Start: 02-04-2023 End: 02-04-2023 Patient encounter procedure [employer] [facility] Start: 12-25-2022 Depression Screen Depression Screen [facility] [employer] Start: 12-25-2022 Urine screening for protein [facility] [employer] Start: 12-10-2022 Creatinine measurement Creatinine [employer] Start: 12-10-2022 Potassium [Moles/volume] in Serum or Plasma Potassium [employer] Start: 12-09-2022 Hemoglobin A1c measurement A1C test (Diabetic or Prediabetic) [facility] Start: 10-08-2022 End: 10-08-2022 Patient encounter procedure 10/08/2022 Office Visit Primary Care Jeanine Rosa, ALUMINUM POURER - DEPUTY DIRECTOR [address] [place] [address] [facility] Start: 04-19-2022 Influenza vaccination [facility] Start: 04-03-2022 End: 04-03-2022 Patient encounter procedure 04/03/2022 Office Visit Primary Care Jeanine Rosa, ALUMINUM POURER [place] [address] [facility] Start: 01-31-2022 End: 01-31-2022 Patient encounter procedure 01/31/2022 Office Visit [place] [address] [place] [address] [facility] Start: 01-25-2022 Creatinine measurement Creatinine monitoring [facility] Work Phone: Start: 01-25-2022 Lipid panel [facility] Start: 01-25-2022 Potassium monitoring Potassium monitoring [facility] [employer] Phone: Start: 01-05-2022 Diabetic retinal exam Diabetic retinal exam [facility] Start: 04-26-2021 Hemoglobin A1c measurement A1C test (Diabetic or Prediabetic) [facility] Start: 04-19-2021 Influenza vaccination Flu vaccine (Season Ended) [facility] [employer] Work Phone: Start: 2018 Screening for malignant neoplasm of colon [facility] [employer] Start: 1992 DTaP/Tdap/Td vaccine (1 - Tdap) DTaP/Tdap/Td vaccine (1 - Tdap) [facility] Start: 1992 Hepatitis B vaccine (1 of 3 - Risk 3-dose series) Hepatitis B vaccine (1 of 3 - Risk 3-dose series) [employer] Start: 10-27-1991 Diabetic microalbuminuria test Diabetic microalbuminuria test [employer] Phone: Start: 10-27-1991 Diabetic retinal exam Diabetic retinal exam [facility] Start: 10-27-1991 Glaucoma screening Diabetic retinal exam [facility] [employer] Start: 10-27-1991 Hepatitis C screening Hepatitis C screen [facility] Start: 10-27-1991 Urine screening for protein Diabetic microalbuminuria test [employer] Start: 1988 HIV screening HIV screen [facility] Start: 1985 COVID-19 Vaccine (1) COVID-19 Vaccine (1) [employer] Phone: Start: 1985 Depression Screen Depression Screen [facility] Start: 10-27-1983 Diabetic foot examination Diabetic foot exam [facility] Start: 10-27-1983 Diabetic retinal exam Diabetic retinal exam [facility] Phone: Start: 10-27-1979 Pneumococcal 0-64 years Vaccine (1 - PCV) Pneumococcal 0-64 years Vaccine (1 - PCV) [employer] Start: 10-27-1979 Pneumococcal 0-64 years Vaccine (1 of 2 - PPSV23) Pneumococcal 0-64 years Vaccine (1 of 2 - PPSV23) [employer] Phone: Start: 1978 COVID-19 Vaccine (1) COVID-19 Vaccine (1) [facility] Start: 04-28-1974 COVID-19 Vaccine (#1) COVID-19 Vaccine (#1) [facility] [employer] Start: 1973 Hepatitis C screening Hepatitis C screen [facility] Phone: End: 01-23-2021 Catheterization and angiography procedure details panel Cardiac Catheterization Cardiac Cath Routine One Time for 1 Occurrences starting 01/23/2021 until 01/23/2021 [employer] Phone: Comment on above: One Time for 1 Occurrences starting 02/2021 until 01/23/2021 End: 01-09-2022 COVID-19, Rapid COVID-19, Rapid Microbiology STAT One Time for 1 Occurrences starting 01/09/2022 until 01/09/2022 [facility] [employer] Phone: Comment on above: One Time for 1 Occurrences starting 12/18 until 01/09/2022 EKG 12 lead EKG 12 lead ECG Routine As Needed for 1 Occurrences starting 12/09/2021 [employer] Phone: Comment on above: As Needed for 1 Occurrences starting Full PFT study Full PFT study P FT Routine 01/09/2022 [facility] [employer] Phone: Glucose [Mass/volume ] in Serum or Plasma [employer] Phone: Comment on above: 4X Daily (AC & HS) until discontinued st arting 01/25/2021 As Needed until disc ontinued starting 01/25/2021 Glucose [Mass/volume ] in Serum or Plasma [employer] Phone: Comment on above: 4X Daily (AC & HS) until discontinued st arting 12/09/2021 As Needed until disc ontinued starting 12/09/2021 End: 12-09-2021 Hemoglobin A1c/Hemoglobin.total in Blood [employer] Phone: Comment on above: Once for 1 Occurrences starting 12/10/19 until 12/09/2021 LAB SCANNED REPORT LAB SCANNED R EPORT Lab Ordered: 01/25/2021 [employer] Phone: Comment on above: Ordered: 01/25/2021 Oxygen therapy [Mini QWiPS Data Set] Initiate Oxygen Therapy Protocol Respiratory Care Routine Daily until discontinued starting 01/23/2021 [employer] Phone: Comment on above: Daily until discontinued starting 2020 Oxygen therapy [Mini QWiPS Data Set] Initiate Oxygen Therapy Protocol Respiratory Care Routine As Needed until discontinued starting 12/09/2021 [employer] Phone: Comment on above: As Needed until discontinued starting PULMONARY FUNCTION T EST REPORT PULMONARY FUNCTION TEST REPORT PFT Ordered: 01/09/2022 [employer] Comment on above: Ordered: 01/09/2022 Troponin I.cardiac [Mass/volume] in Serum or Plasma Troponin Lab Timed Daily until discontinued starting 01/25/2021, 1 completed [employer] Work Phone: Comment on above: Daily until discontinued starting 2020, 1 completed End: 12-11-2021 Troponin I.cardiac [Mass/volume] in Serum or Plasma Troponin Lab Routine Every 6 Hours (Lab) for 7 Occurrences starting 12/09/2021 until 12/11/2021, 4 completed [employer] Work Phone: Comment on above: Every 6 Hours (Lab) for [address] arting 12/09/2021 until 12/11/2021, 4 completed End: 02-01-2023 Urinalysis with Reflex to Culture Urinalysis with Reflex to Culture Lab STAT One Time for 1 Occurrences starting 02/01/2023 until 02/01/2023 [employer] Comment on above: One Time for 1 Occurrences starting 01/17 until 02/01/2023 US SCROTUM W LIMITED DUPLEX US SCROTUM W LIMITED DUPLEX Imaging STAT 02/01/2023 6:28 AM EDT [employer] Payers Date Payer Category Payer Unknown [id number] 2022 Medicaid [id number] 2014 Unknown [id number] 1973 Unknown [id number] 2.16.8 [id number] 1973 Unknown [id number] 2.16.8 [id number] 1973 Unknown [id number] 2.16.8 [id number] 1973 Unknown [id number] 2.16.8 [id number] 1973 Unknown [id number] 2.16. [id number] 1973 Unknown [id number] 2.16. [id number] 1973 Unknown [id number] 2.16. [id number] 1975 Unknown [id number] 2.16. [id number] Social History Date Type Detail Facility Start: 01-24-2021 End: 03-26-2022 Tobacco smoking status [facility] Former smoker [employer] Phone: End: 08-19-2007 History of tobacco use Cigarette Smoker [employer] Start: 01-24-2021 End: 02-01-2023 Alcohol intake Current drinker of alcohol (finding) [employer] Phone: Start: 1975 [facility] Start: 11-29-2021 End: 12-09-2021 Exposure to SARS-CoV-2 (event) Not sure [employer] Start: 12-09-2021 End: 02-01-2023 Alcohol intake [employer] Phone: Start: 12-09-2021 History SDOH Alcohol Comment daily [employer] Phone: End: 08-19-2007 History of tobacco use Current smoker [facility] [employer] Phone: Start: 01-24-2021 End: 03-26-2022 Tobacco use and exposure Smokeless tobacco non-user [facility] [employer] Phone: Start: 12-25-2021 End: 10-08-2022 History SDOH Financial 5 [facility] [employer] Phone: Start: 12-25-2021 End: 10-08-2022 History SDOH Food Worry 1 [facility] [employer] Work Phone: Start: 10-08-2022 End: 01-23-2023 History SDOH Alcohol Std Drinks 2 [facility] [employer] Start: 02-01-2023 History SDOH Alcohol Frequency 4 [facility] Medical Equipment Procedure Code Equipment Code Equipment Origin al Text Equipment Identifier Dates 1 each by Does n ot apply route 3 times daily [id number] Start: 01-25-2021 1 each by Does n ot apply route 3 times daily [id number] Start: 01-25-2021 End: 01-25-2021 Clinical Notes 01-25-2021 [...] by: Segundo Stevenson MD 02/01/23 Final result [facility] 01-27-2023 Note PROCEDURE: SP ANGIO RENAL UNILATERAL INCLUSIVE 01/24/2023 HISTORY: ORDERING SYSTEM PROVIDED HISTORY: Left renal laceration TECHNOLOGIST PROVIDED HISTORY: Left renal laceration CONTRAST: Optiray-350 SEDATION: None FLUOROSCOPY DOSE AND TYPE: Radiation Exposure Index: Kerma mGy, 545 DESCRIPTION OF PROCEDURE AND FINDINGS: Informed consent was obtained after a detailed explanation of the procedure including risks, benefits, and alternatives. Eaton protocol was observed. Sterile gowns, masks, hats [...] Guidewire was advanced centrally and a 5 Persian sheath placed. Selective injections of the left [...] by: Juliocesar Mcdonald MD 01/27/23 Final result [facility] 12-10-2021 History of Presen t illness Narrative Patient Discharged with belongings and instructions given to patient, patient verbalizes understanding. Patient ambulated off of unit with family and family will transport patient to private residence in private vehicle. [facility] CDU / OBSERVATION ENCOUNTER ATTENDING NOTE I [...] accuracy, there may be errors in the line person that are not intended. documented in this encounter [employer] Phone: 01-25-2021 History of Presen t illness Narrative All discharge instructions reviewed with patient and . All questions answered. IVs removed. Meds delivered from [id number]-nats. Pt. Taken to car in wheelchair accompanied by staff. Echo done at patient bedside. Images from the original note were not included. [place] Line Maintainer Section Progress Note Date: 01/24/2021 Patient name: John Knight Date of admission: 01/23/2021 9:57 PM Date of : 1975 PCP: No primary care provider on file. Reason for Admission: STEMI (ST elevation myocardial infarction) ([facility]) [I21.3] Subjective: Clinical Changes / Abnormalities: Denies [...] Problem List: STEMI (ST elevation myocardial infarction) ([facility]) Assessment / Acute Cardiac Problems: 1. Inferior [...] Natalie Cooley MD, MD Fellow, Cardiovascular Diseases [facility] Attending Physician Statement I have discussed the case of John Knight including pertinent history and exam findings with the resident. I have seen and examined the patient and the greenwood elements of the encounter have been performed by me. I agree with the assessment, plan and orders as documented by the resident With changes made to the note. . [place] Line Maintainer Section [phone] Dr. Hidalgo with Cardiology at the bedside and notified patient right groin puncuture sight bleedings and investment underwriter held 5 minutes of manual pressure and apply safeguard. Dr. Hidalgo assess site and no new orders. documented in this encounter [employer] Phone: 01-25-2021 Hospital Discharg Lizbeth De La [...] Contact Information Primary Emergency Contact: Jasmin Smiley [facility] Relation: Other Past Surgical History: Past Surgical History: Procedure Laterality Date APPENDECTOMY CHOLECYSTECTOMY TONSILLECTOMY Immunization History: There is no immunization history on file for this patient. Active Problems: Patient Active Problem List Diagnosis Code STEMI (ST elevation myocardial infarction) ([facility]) I21.3 Type 2 diabetes mellitus with hyperglycemia, without long-term current use of insulin ([facility]) E11.65 Hyponatremia E87.1 Gastroesophageal reflux disease without [...] MENTAL STATUS:} IV Access: { KACEY IV ACCESS:828189339} Nursing Mobility/ADLs: Walking {CHP DME ADLs:104370238} Transfer {CHP DME ADLs:109349087} Bathing {CHP DME ADLs:652186172} Dressing {P DME ADLs:492609008} Toileting {P DME ADLs:129104850} Feeding {CHP DME ADLs:007215959} Area Field Manager {P DME ADLs:897876944} Med Delivery { [facility]ACE[facility] MED Delivery:020883549} Wound Care Documentation and Therapy: Elimination: Continence: Bowel: {YES / NO:} Bladder: {YES / NO:} Urinary Catheter: {Urinary Catheter:411680184} Colostomy/Ileostomy/Ileal Conduit: {YES / NO:} Date of Last BM: Intake/Output Summary (Last 24 hours) at 01/25/2021 1703 Last data filed at 01/25/2021 0000 Gross per 24 hour Intake 200 ml Output Net 200 ml I/O last 3 completed shifts: In: 200 [P.O.:200] Out: - Safety Concerns: { KACEY Safety Concerns:619623979} Impairments/Disabilities: {[facility] Impairments/Disabilities:7605080 73} Nutrition Therapy: Current Nutrition Therapy: { KACEY Diet List:485413656} Routes of Feeding: {[facility] DME Other Feedings:910689926} Liquids: {[facility] liquid thickness:66417} Daily Fluid Restriction: {[facility] DME Yes amt example:684371849} Last Modified Barium Swallow with Video (Video Swallowing Test): {Done Not Done Date:} Treatments at the Time of Hospital Discharge: Respiratory Treatments: Oxygen Therapy: {Therapy; copd oxygen:12491} Ventilator: {[facility] Vent List:479689447} Rehab Therapies: {THERAPEUTIC INTERVENTION:7859702132} Weight Bearing Status/Restrictions: {[facility] Weight Bearin} Other Medical Equipment (for information only, NOT a DME order): {EQUIPMENT:218359400} Other Treatments: Patient's personal belongings (please select all that are sent with patient): {[facility] DME Belongings:025147145} RN SIGNATURE: {Esignature:482692665} CASE MANAGEMENT/SOCIAL WORK SECTION Inpatient Status Date: Readmission Risk Assessment Score: Readmission Risk Risk of Unplanned Readmission: 8 Discharging to Facility/ Agency Name: Address: Phone: Fax: Dialysis Facility (if applicable) Name: Address: Dialysis Schedule: Phone: Fax: Diver Tender/Payroll Director signature: {Esignature:736299515} PHYSICIAN SECTION Prognosis: {Prognosis:5717955247} Condition at Discharge: {[facility] Patient Condition:275985508} Rehab Potential (if transferring to Rehab): {Prognosis:2072009631} Recommended Labs or Other Treatments After Discharge: Physician Certification: I certify the above information and transfer of John Knight is necessary for the continuing treatment of the diagnosis listed and that he requires {Admit to Appropriate Level of Care:11501} for {GREATER/LESS:513561946} 30 days. Update Admission H&P: {CHP DME Changes in HandP:518580387} PHYSICIAN SIGNATURE: {Esignature:795434758} The following attachments cannot be sent through Care Everywhere.PCI (Percutaneous Coronary Intervention): Post-op (Palestinian)Coronary Artery Disease (Palestinian)Diabetes: Heart Attack and Stroke Risk: General Info (Palestinian)documented in this encounter [employer] Phone: Evaluation note Diagnosis ST elevation myocardial infarction (STEMI), unspecified artery (HCC)- Primary Type 2 diabetes mellitus with hyperglycemia, without long-term current use of insulin (HCC) Hyponatremia Hyposmolality and/or hyponatremia Gastroesophageal reflux disease without esophagitis Esophageal reflux documented in this encounter [employer] Phone: evaluation note* Diagnosis Chest pain- Primary Chest pain, unspecified Other chest pain documented in this encounter [employer] Phone: evaluation note* Diagnosis Chest pain, unspecified type documented in this encounter [facility] [employer] Phone: evaluation note* Diagnosis Fall, subsequent encounter Right wrist pain Pain in joint, forearm documented in this encounter [facility] [employer] Phone: evaluation note* Diagnosis Laceration of left kidney, initial encounter documented in this encounter [employer] [facility]* Diagnosis Scrotal hematoma- Primary Specified vascular disorder of male genital organs Scrotal swelling Edema of male genital organs [facility] Instructions* LarryDarryl Lexie, DO - 12/10/2021 Thank you for visiting [facility]. He was seen and evaluated [...] care provider, you can establish care with [facility] at the information given above. [...] sent through Care Everywhere. * Chest Pain (Palestinian) [email or web address] [email or web address] Work Phone: Hospital Discharge instructions* Attachments The following attachments cannot be sent through Care Everywhere. * Testicular Pain (Palestinian) * Testicular Contusion (Palestinian) [facility] Advance Directives No Advanced Directives Records FoundLatest [...] Contact Diagnoses STEMI (ST elevation myocardial infarction) ([facility]) Franci Ruvalcaba MD [address] [address] [facility] Specialty Diagnoses / Procedures Referred By Contac t Referred To Contact Diagnoses Chest pain, unspecified type Procedures Full PFT Study With Bronchodilator Jeanine Rosa, ALUMINUM POURER - [place] [address] Referral ID Status Reason Start Date Expiration Date V isits Requested Visits Authorized [id number] Pending Review 12/25/2021 12/25/2022 1 1 Reason [...] patient received 180 mg oral bolus in trestle 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
Care Teams (unrecognized sec tion and content) Mosaic Worker Relationship Specialty Start Date End Date Amanda Wan, DO [address] [place] [address] PCP - General Family Medicine 12/10/21 Mosaic Worker Relationship Specialty Start Date End Date Jeanine Rosa, ALUMINUM POURER - [place] [address] PCP - General Family Nurse Practitioner 12/25/21 Mosaic Worker Relationship Specialty Start Date End Date Jeanine Rosa, ALUMINUM POURER [place] [address] PCP - General Family Nurse Practitioner 12/25/21 Mosaic Worker Relationship Specialty Start Date End Date Jeanine Rosa, ALUMINUM POURER [place] [address] PCP - General Family Nurse Practitioner 12/25/21 Mosaic Worker Relationship Specialty Start Date End Date Jeanine Rosa ALUMINUM P[employer]ER [place] [address] PCP - General Family Nurse Practitioner 12/25/21 Mosaic Worker Relationship Specialty Start Date End Date Jeanine Rosa, ALUMINUM POURER [place] [address] PCP - General Family Nurse Practitioner 12/25/21 (unrecognized sect ion and content) No Status Records FoundNo Status Records FoundNo Status Records Found INFORMATION SOURCE (unrecogn ized section and content) DATE CREATED AUTHOR 02/02/2023 [facility] DATE CREATED AUTHOR AUTHOR'S ORGANCESAR ATION 02/27/[address] [facility] DATE CREATED AUTHOR AUTHOR'S ORGANCESAR ATION 04/29/2023 [facility] RECORDS PERTAINING TO PATIENTS WHO [...] BE BASED ON THE PRIMARY CLINICAL RECORDS. [facility] [employer] provides no warranty or guarantee of the accuracy or completeness of information in this document.
[2024-11-10 11:35] LABS: Basophils Absolute Auto 0.1 10^3/uL (0.0-0.1); Basophils Percent Auto 0.9 % (0.2-2.0); Eosinophils Absolute Auto 0.3 10^3/uL (0.0-0.7); Eosinophils Percent Auto 4.2 % (0.9-7.0); Hematocrit 43.2 % (42.0-54.0); Hemoglobin 14.8 g/dL (14.0-18.0); Immature Granulocytes Abs Auto 0.02 10^3/uL (0.00-0.03); Immature Granulocytes Pct Auto 0.3 % (0.0-0.5); Lymphocytes Absolute Auto 1.9 10^3/uL (1.2-3.8); Lymphocytes Percent Auto 30.3 % (20.5-60.0); Mean Corpuscular HGB Conc 34.3 g/dL (29.9-35.2); Mean Corpuscular Volume 93.3 fL (80.0-94.0); Mean Platelet Volume 10.1 fL (9.5-13.5); Monocytes Absolute Auto 0.6 10^3/uL (0.3-0.8); Monocytes Percent Auto 9.4 % (1.7-12.0); Neutrophils Absolute Auto 3.5 10^3/uL (1.4-6.5); Neutrophils Percent Auto 54.9 % (43.0-75.0); Platelet Count 189 10^3/uL (150-450); Red Blood Count 4.63 10^6/uL (4.70-6.10); Red Cell Distribution Width 12.6 % (11.0-15.0); White Blood Count 6.4 10^3/uL (4.0-11.0)
[2024-11-10 12:21] LABS: Estimated Average Glucose 223 mg/dL; Glycohemoglobin A1C 9.4 % (4.5-6.2)
[2024-11-10 12:41] LABS: Alanine Aminotransferase 25 U/L (16-63); Albumin Globulin Ratio 1.1; Albumin Level 3.7 g/dL (3.4-5.0); Alkaline Phosphatase 64 U/L (46-116); Anion Gap 10.5; Aspartate Amino Transferase 13 U/L (15-37); BUN Creatinine Ratio 14.3; Bilirubin Total 0.4 mg/dL (0.2-1.0); Carbon Dioxide 29.4 mmol/L (21.0-32.0); Chloride 104 mmol/L (98-107); Chol HDL Ratio 5.7; Cholesterol 223 mg/dL (<=200); Estimated GFR (African America >60 (>=60 mL/min/1.73m^2); Estimated GFR (Non-African Ame >60 (>=60 mL/min/1.73m^2); Free T3 2.76 pg/mL (2.18-3.98); Globulin 3.3 g/dL; Glucose 177 mg/dL (74-106); HDL Cholesterol 39 mg/dL (40-60); Potassium 3.9 mmol/L (3.5-5.1); Sodium 140 mmol/L (136-145); Thyroid Stimulating Hormone 0.932 uIU/mL (0.358-3.740); Triglycerides 230 mg/dL (<=150); Uric Acid 4.7 mg/dL (3.5-7.2)
[2024-11-10 13:29] LABS: Prostate Specific Antigen Scrn 0.72 ng/mL (<=4.00)
== END 2024-11-10 11:05 | disposition home or self-care (01) ==
LOC: LAB 11:06
PROVIDERS: PCP Nurse Practitioner Family; Visit Provider Nurse Practitioner Family
DX: Z00.00 Encounter for general adult medical examination without abnormal findings (principal)
CPT/HCPCS: 36415; 80053; 80061; 83036; 83525; 84436; 84443; 84481; 84550; 85025; G0103